=== PATIENT | male | born 1980 | race Caucasian/White ===

== ENCOUNTER → 2022-10-18 | Outpatient (CLI) | payer OTHER, SELFPAY ==
[2022-10-18 09:37] LABS: Anion Gap 4 (5-15); BUN 21 mg/dL (7-18); BUN/Creat Ratio 18.1 RATIO (10-20); Calcium,Total 8.6 mg/dL (8.5-10.1); Chloride 105 mmol/L (98-107); Cholesterol 149 mg/dL (200); Creatinine, Serum 1.16 mg/dL (0.70-1.30); EST Glomerular Filtration Rate 74 mL/min (>60); Est Glom Filt Rate - Afr Amer 90 mL/min (>60); Glucose 205 mg/dL (74-106); High Density Lipoprotein 26 mg/dL; Sodium Level 135 mmol/L (136-145); Triglycerides 274 mg/dL; Very Low Density Lipoprotein 55 mg/dL (5-40)
== END | disposition home or self-care (01) ==
PROVIDERS: PCP Family Medicine; Referring Provider Family Medicine; Visit Provider Family Medicine
DX: Z00.00 Encounter for general adult medical examination without abnormal findings (principal); I10 Essential (primary) hypertension
CPT/HCPCS: 36415; 80048; 80061; 84443

== ENCOUNTER → 2023-05-04 | Outpatient (CLI) | payer OTHER, SELFPAY ==
--- NOTE | 2023-05-04 15:37 | STRESSREP ---
Stress Test Report Pharmacologic myocardial perfusion stress test. 42-year-old man with a history of shortness of breath and hypertension Resting EKG demonstrates sinus rhythm with a rate of 75 bpm. Resting blood pressure is 162/120 mmHg. 0.4 mg of regadenoson was infused per usual protocol followed by rapid intravenous saline flush injection. Continuous EKG monitoring was performed. The maximum heart rate was 117 bpm which was 65% of max impacted heart rate the maximum workload was 1 metabolic equivalent. At rest there were no ST or T wave changes noted to suggest ischemia and at peak infusion nonspecific ST changes were noted which did not meet the criteria for ischemia. No clinical angina is noted. The final blood pressure was 154/110 mmHg. patient was noted to be hypertensive at rest but became vagal after IV was set up. Myocardial perfusion protocol. 14.6 mCi of technetium 99m sestamibi was injected at rest. 0.4 mg of regadenoson was infused per usual protocol. At peak infusion 44.6 mCi of technetium 99m sestamibi was injected stress images were obtained stress and rest images were reconstructed and compared in the short axis vertical long and horizontal long axis. Gated images were also obtained. Perfusion SPECT analysis: Review of the stress images demonstrate normal uptake of tracer noted in all areas of the myocardium except for the anterior wall with reduced perfusion. The resting images similar demonstrated normal uptake of tracer noted in all areas of the myocardium. Mild mid anterior ischemia is noted Gated SPECT analysis: The gated ejection fraction is 49%. Conclusion: Abnormal pharmacologic myocardial perfusion stress test. Low normal ejection fraction. Anterior myocardial ischemia present.
== END | disposition home or self-care (01) ==
LOC: CVS 06:33
PROVIDERS: PCP Family Medicine; Referring Provider Family Medicine; Visit Provider Family Medicine
DX: R06.02 Shortness of breath (principal)
CPT/HCPCS: 78452; 93017; A9500; A4216; J2785

== ENCOUNTER → 2023-05-13 | Outpatient (CLI) | payer OTHER, SELFPAY ==
--- NOTE | 2023-05-13 16:55 | RAD_ITS ---
STUDY: X-RAY CHEST REASON FOR EXAM: Male, 42 years old. Shortness of breath. Abnormal stress test. TECHNIQUE: COMPARISON: None. FINDINGS: The lungs are clear and expanded. There is no demonstrated pleural abnormality. There is borderline cardiomegaly. Normal mediastinum and caridad. Normal visualized pulmonary arteries. Normal visualized aortic arch and descending thoracic aorta. Normal visualized thoracic spine. Normal visualized ribs, clavicles, and shoulders. There is no demonstrated abnormality of the visualized soft tissue structures of the upper abdomen. RAD/Chest PA and Lateral IMPRESSION: Borderline cardiomegaly. Electronically Signed: Yanick Reveles MD at 10:27 EDT ,
[2023-05-13 17:14] LABS: Absolute Neutrophil Count 3.3 X10^3/uL (2.0-7.7); Basophil# 0.05 X10^3/uL; Basophil% 0.7 % (0-1); Eosinophil# 0.41 X10^3/uL; Eosinophils% 5.9 % (0-5); Hematocrit 42.7 % (40-54); Hemoglobin 14.5 g/dL (13.0-16.5); Mean Corpuscular Hgb 29.7 pg (27.0-32.0); Mean Corpuscular Volume 87.5 fL (80-94); Mean Platelet Vol. 9.3 fl (6.2-12.0); Monocyte# 0.69 X10^3/uL; Monocyte% 9.9 % (0-10); NRBC Flagged by Analyzer 0 % (0-5); Neutrophil # 3.26 X10^3/uL (2.7-7.7); Neutrophil % 46.9 % (47-70); Platelet Count 212 K/mm3 (150-450); RBC Distribution Width CV 12.9 % (11.6-14.6); RBC Distribution Width SD 41.1 fl (35.1-43.9); Red Blood Count 4.88 M/mm3 (4.6-6.2)
[2023-05-13 19:00] LABS: Anion Gap 6 (5-15); BUN 23 mg/dL (7-18); BUN/Creat Ratio 14.9 RATIO (10-20); Calcium,Total 9.3 mg/dL (8.5-10.1); Chloride 105 mmol/L (98-107); Creatinine, Serum 1.54 mg/dL (0.70-1.30); EST Glomerular Filtration Rate 53 mL/min (>60); Est Glom Filt Rate - Afr Amer 65 mL/min (>60); Glucose 93 mg/dL (74-106); Potassium 4.2 mmol/L (3.5-5.1); Sodium Level 138 mmol/L (136-145)
== END | disposition home or self-care (01) ==
LOC: RAD 16:41
PROVIDERS: PCP Family Medicine; Referring Provider Internal Medicine Cardiovascular Disease; Visit Provider Internal Medicine Cardiovascular Disease
DX: R06.02 Shortness of breath (principal); R94.39 Abnormal result of other cardiovascular function study; I10 Essential (primary) hypertension
CPT/HCPCS: 36415; 71046; 80048; 85025

== ENCOUNTER → 2023-05-21 | Outpatient (CLI) | payer OTHER, SELFPAY ==
[2023-05-21 16:33] LABS: Uric Acid 9.6 mg/dL (3.5-7.2)
== END | disposition home or self-care (01) ==
LOC: MFPLAB 11:48
PROVIDERS: PCP Family Medicine; Visit Provider Family Medicine
DX: M10.9 Gout, unspecified (principal)
CPT/HCPCS: 36415; 84550

== ENCOUNTER 2023-05-25 06:57 | Day surgery (SDC) | payer OTHER, SELFPAY ==
[2023-05-22 08:55] VITALS: BMI 34.0
--- NOTE | 2023-06-01 08:56 | CL.D_ITS ---
Patient Name: JUSTINE RUANO Study Date: 05/25/2023 Performing: Basil Clark MD Ht: 72 inches 182.88 cm : 1980 Wt: 251.3 lbs 113.85 kg Age: 42 Gender: male BSA: 2.35 PROCEDURE(S) PERFORMED DC01-(17214)LHC/COR/LV CLINICAL PROFILE AND INDICATIONS Indications: Suspected CAD Heart Failure: None Stress/Imaging Date: 05/04/23Stress Test with SPECT MPI: Positive Intermediate Risk CAD Presentations: Symptom unlikely to be ischemic. CONCLUSIONS Uncontrolled hypertension. RECOMMENDATIONS Aggressive risk factor modification and guideline directed therapy care DESCRIPTION OF PROCEDURE The patient arrived to the procedure lab. The risks and benefits of the procedure as well as a full description of our services here and current unavailability of surgical backup were fully explained to the patient and/or their significant other prior to the catheterization. The Timeout was completed, verifying the correct patient and procedure. The patient's procedural site was prepped and draped in the usual fashion. Local anesthetic was given subcutaneously to right radial region with Lidocaine 2%. Using a modified Seldinger technique, arterial access was obtained via the right radial artery, a 6Fr sheath was inserted. Right Coronary Artery selective angiography was then performed in multiple views using a 5 Fr. 4.0 Horton catheter. Left Coronary Artery selective angiography was performed in multiple views using a 5 Fr. JL5 catheter. Left Ventriculography was performed in TADEO projection using a 5 Fr. Pigtail catheter. LV to AO pullback pressures were then recorded.The arterial sheath was pulled and a TR Band was applied for hemostasis. 10cc air CORONARY ANGIOGRAPHY DOMINANCE: Right Dominant LEFT HEART ASSESSMENT Left Ventricular Ejection Fraction: by LV Gram 60 % Normal LV wall motion Normal Left Ventricular systolic function LEFT MAIN: Angiographically normal LEFT ANTERIOR DESCENDING ARTERY: No significant disease noted CIRCUMFLEX ARTERY: No significant disease noted RAMUS: Medium size vessel with distal side branch with 70 to 80% stenosis noted. RIGHT CORONARY ARTERY: PROX RCA: 50 % Stenosis COMPLICATIONS No Complications PROCEDURE MEDICATIONS Fentanyl 50 mcg IV Versed 1 mg IV Versed 1 mg IV Oxygen: 2 L/min via nasal cannula Heparin given IA 05/25/2023 08:54:59 Verapamil 2.5mg, Ntg 100mcgs, 3000 units of Heparin given IA 05/25/2023 08:54:59 SUMMARY OF HEMODYNAMIC DATA Time AIR REST ECG 07:32:01 ECG 07:33:10 Art 106/72 (82) 08:56:58 AO 143/102 (122) SA 09:08:43 LV 141/13, 33 09:25:56 LV 149/17, 27 09:26:05 LV 144/18, 27 09:26:52 LVp 149/14, 30 09:26:58 AOp 161/106 (130) 09:27:05 ECG 09:42:40 AIR REST 10:53:45 Signed By Basil Clark MD On 06/01/2023 08:55:54 Basil Clark MD
== END 2023-05-25 11:00 | disposition home or self-care (01) ==
PROVIDERS: PCP Family Medicine; Visit Provider Internal Medicine Cardiovascular Disease
DX: I10 Essential (primary) hypertension (principal); E11.9 Type 2 diabetes mellitus without complications; R94.39 Abnormal result of other cardiovascular function study; Z79.84 Long term (current) use of oral hypoglycemic drugs; Z79.899 Other long term (current) drug therapy; Z79.82 Long term (current) use of aspirin
CPT/HCPCS: 93458; 99152; 99153; J7040; Q9967; C1769; C1894

== ENCOUNTER 2023-05-25 15:39 | Emergency (ER) | payer OTHER, SELFPAY ==
[2023-05-25 15:40] VITALS: BP 157/110; PULSE 92; RESP 18; TEMP 36.2; O2SAT 93; BMI 34.0
--- NOTE | 2023-05-25 16:26 | ADUUE_ITS ---
Reason For Study: Swelling Rt Hand RIGHT Rt Radial A: 0.34cm x 0.37cm, 104cm/s Rt Ulnar A: 0.25cm x 0.23cm, 81cm/s Rt RadialV, UlnarV, and Cephalic V are Compressible No pseudo or fistula noted. VL/US Art Duplex Unilat UP Extrem Interpretation Summary Right radial and ulnar arteries patent with normal waveforms and velocities. Right radial, ulnar, and cephalic veins patent and compressible with no evidenc e of thrombosis. No pseudoaneurysm or fistula identified. Ordering Physician: Alexandro Edwards Referring Physician: Zachary Leal Performed By: Lisa Aguillon, YULISSA, RVT
--- NOTE | 2023-05-25 16:28 | EDS_ITS ---
HPI History of Present Illness Chief Complaint: Wound Check Narrative Narrative: 42-year-old male past medical history of hypertension had an abnormal stress test in the past and had radial artery heart catheterization by Dr. Wagner for review this morning around 9 AM. This was approximately 7 hours ago. He noticed an hour ago that his right hand started swelling. It is diffusely tender. He states he was told that he needed to come to the emergency department because they are afraid it might burst. He does not take blood thinners. No exacerbating or alleviating factors. His fingers feel tight. [facility] Medical History Abnormal stress test Essential (primary) hypertension SOB (shortness of breath) Home Medications guaifenesin 600 mg tablet, extended release 12 hr (Mucinex) 600 mg PO Q12H PRN congestion 05/06/23 [History Last Taken Unknown] lisinopril 20 mg-hydrochlorothiazide 25 mg tablet 1 tab PO DAILY 05/06/23 [History Last Taken Unknown] metformin 1,000 mg tablet 1,000 mg PO DAILY 05/06/23 [History Last Taken Unknown] multivitamin 1 tab PO DAILY 05/06/23 [History Last Taken Unknown] amlodipine 10 mg tablet 10 mg PO DAILY #60 tabs 05/13/23 [Rx Last Taken 05/25/23] aspirin 81 mg tablet,delayed release (Adult Low Dose Aspirin) 81 mg PO QDAY #60 tabs 05/13/23 [Rx Last Taken 05/25/23] atorvastatin 40 mg tablet (Lipitor) 40 mg PO DAILY #90 tabs 05/25/23 [Rx Last Taken Unknown] metoprolol succinate 50 mg tablet,extended release 24 hr (Toprol XL) 50 mg PO DAILY #60 tabs 05/25/23 [Rx Last Taken Unknown] Allergy/AdvReac Type Severity Reaction Status Date / Time No Known Allergies Allergy Verified 05/25/23 15:40 Social History Smoking Status: Never smoker alcohol intake: never ROS ROS ED ROS Narrative Constitutional: No fever, no chills. HEENT: No sore throat. No neck pain. No loss of vision. No rhinorrhea. Cardiovascular: No chest pain. No palpitations. No pedal edema. Respiratory: No cough, no shortness of breath. Abdominal: No abdominal pain. No nausea. No vomiting. Genitourinary: No dysuria. No hematuria. Musculoskeletal: No myalgias. Right hand pain and swelling. Neurologic: No headaches. No dizziness. No lightheadedness. Skin: No rash. No change in color. Psychiatric: No depression. No anxiety. EXAM Physical Exam Narrative Exam Narrative: Afebrile. Vital signs noted. HEENT: Normocephalic. Atraumatic. PERRL, EOMI. Neck soft and supple. No point tenderness or step off. Cardiovascular: Regular rate and rhythm. No murmurs, rubs, or gallops appreciated. Respiratory: No tachypnea. Lungs clear to auscultation bilaterally. Gastrointestinal: Abdomen soft, nontender, with normoactive bowel sounds. No rebound or guarding. Neurological: Awake. Alert. Nonfocal, nonlateralizing. Skin: No rash. Normal color. No pallor. Musculoskeletal: No pedal edema. Full range of motion extremities. Mild diffuse swelling of right hand, good capillary refill. Able to oppose thumb. Palpable ulnar pulse. More proximal radial pulse palpable Const Vital Signs: 05/25/23 15:40 Temperature 97.1 F L Temperature Source Temporal Pulse Rate 92 Respiratory Rate 18 Blood Pressure 157/110 H Blood Pressure Mean 125 Pulse Ox 93 Oxygen Delivery Method Room Air MDM MDM MDM Narrative Medical decision making narrative: I do not feel laboratory work is indicated. Concern is for tear of the radial artery with developing hematoma. I discussed patient with Dr. Basil Clark who would like an ultrasound performed of the radial artery. According to the safety relief valve technician, the radial artery appears patent without aneurysm both proximally and distally. To the puncture site with good flow. I discussed the patient with Dr. Basil Clark who has also seen the patient in the emergency department. He will elevate his hand, and be discharged to follow-up in 2 days. Disposition is discharged in stable condition. Discharge Plan Triage Chief Complaint: Wound Check ED Provider: Alexandro Edwards Dx/Rx/DC Orders Clinical Impression: Swelling of right hand Instructions: ED Lymphedema Prescriptions: No Action metformin 1,000 mg tablet 1,000 mg PO DAILY lisinopril-hydrochlorothiazide 20-25 mg tablet 1 tab PO DAILY guaifenesin [Mucinex] 600 mg tablet extended release 12hr 600 mg PO Q12H PRN (Reason: congestion) multivitamin Tablet 1 tab PO DAILY aspirin [Adult Low Dose Aspirin] 81 mg tablet,delayed release (DR/EC) 81 mg PO QDAY Qty: 60 3RF amlodipine 10 mg tablet 10 mg PO DAILY Qty: 60 3RF atorvastatin [Lipitor] 40 mg tablet 40 mg PO DAILY Qty: 90 3RF metoprolol succinate [Toprol XL] 50 mg tablet extended release 24 hr 50 mg PO DAILY Qty: 60 3RF Primary Care Provider: Zachary Leal Referrals: Basil Clark MD [Med Staff - Active Staff] - 2 Days Zachary Leal MD [Primary Care Provider] - As Needed Activity Restrictions/Additional Instructions: Elevate your right hand when possible. Follow-up with Dr. Clark in 2 days. Disposition Disposition: Home, Self Care
[2023-05-25 17:16] VITALS: BP 158/112; PULSE 81; RESP 16; TEMP 36.6; O2SAT 99
== END 2023-05-25 17:18 | disposition home or self-care (01) ==
LOC: ED 17:01
PROVIDERS: Emergency Provider Emergency Medicine; PCP Family Medicine; Visit Provider Emergency Medicine
DX: M79.89 Other specified soft tissue disorders (principal)
CPT/HCPCS: 93931; 99282

== ENCOUNTER → 2023-05-29 | Outpatient (CLI) | payer OTHER, SELFPAY ==
[2023-05-29 18:36] LABS: AST(SGOT) 17 U/L (15-37); Alanine Aminotransfer ALT/SGPT 89 U/L (16-61); Albumin, Serum 3.9 g/dL (3.2-5.0); Alkaline Phosphatase 81 U/L (45-117); Anion Gap 11 (5-15); BUN 52 mg/dL (7-18); BUN/Creat Ratio 23.1 RATIO (10-20); Calcium,Total 8.9 mg/dL (8.5-10.1); Chloride 104 mmol/L (98-107); Cholesterol 123 mg/dL (200); Creatinine, Serum 2.25 mg/dL (0.70-1.30); EST Glomerular Filtration Rate 34 mL/min (>60); Est Glom Filt Rate - Afr Amer 42 mL/min (>60); Globulin 3.9 g/dL (2.2-4.2); Glucose 392 mg/dL (74-106); High Density Lipoprotein 34 mg/dL; Potassium 4.9 mmol/L (3.5-5.1); Protein, Total 7.8 g/dL (6.4-8.2); Sodium Level 135 mmol/L (136-145); Triglycerides 138 mg/dL; Very Low Density Lipoprotein 28 mg/dL (5-40)
== END | disposition home or self-care (01) ==
LOC: MFPLAB 16:49
PROVIDERS: PCP Family Medicine; Visit Provider Family Medicine
DX: E11.9 Type 2 diabetes mellitus without complications (principal)
CPT/HCPCS: 36415; 80053; 80061

== ENCOUNTER → 2023-06-12 | Outpatient (CLI) | payer OTHER, SELFPAY ==
--- NOTE | 2023-06-12 15:09 | ECHOCS_ITS ---
Reason For Study: SOB Procedure This was a 2D Doppler, Color Flow transthoracic echocardiogram. Contrast injection was performed. Exam performed in department. Left Ventricle Normal LV size. Mild concentric left ventricular hypertrophy. Left ventricular systolic function is normal. The estimated ejection fraction is 60 %. No regional wall motion abnormalities noted. Right Ventricle Normal RV size. Normal systolic function. Atria Normal left atrium. Normal right atrium. Tricuspid Valve Normal tricuspid valve. Mild (1+) tricuspid valve insufficiency. Pulmonary artery systolic pressure is 35 mmHg. Aortic Valve Trisinus/trileaflet aortic valve. Pulmonic Valve Normal pulmonic valve. Great Vessels Normal aortic root. The pulmonary artery is normal size. Normal inferior vena cava. Pericardium/Pleural No pericardial effusion. Medication 22 gauge I.V. with prn adaptor inserted into right arm. Diluted definity 1ml given slow IV push to enhance endocardial definition. MMode/2D Measurements & Calculations LVIDd: 5.4 cm IVSd: 1.3 cm Ao root diam: 3.6 cm LVIDs: 3.8 cm LVPWd: 1.2 cm LA dimension: 4.9 cm FS: 28.3 % LAV(MOD-bp): 52.9 ml LVAd ap4: 45.5 cm2 SV(MOD-sp4): 100.6 ml LAV(MOD-bp) Indexed: 22.5 ml/m2 LVLd ap4: 10.2 cm LAV(MOD-sp2): 55.5 ml EDV(MOD-sp4): 162.0 ml LAV(MOD-sp4): 49.9 ml EDV(sp4-el): 172.0 ml LVAs ap4: 24.4 cm2 LVLs ap4: 8.5 cm ESV(MOD-sp4): 61.4 ml ESV(sp4-el): 59.5 ml EF(MOD-sp4): 62.1 % EF(sp4-el): 65.4 % SV(sp4-el): 112.5 ml LA A4 area: 19.0 cm2 RA A4 area: 21.6 cm2 TAPSE: 2.5 cm Time Measurements MV dec time: 0.20 sec Doppler Measurements & Calculations MV E max demetrio: 69.6 cm/sec Lat Peak E' Demetrio: 11.1 cm/sec Med Peak E' Demetrio: 9.5 cm/sec MV A max demetrio: 64.5 cm/sec E/E' lat: 6.2 E/E' med: 7.3 MV E/A: 1.1 MV V2 max: 100.2 cm/sec MV P1/2t max demetrio: 100.2 cm/sec Ao V2 max: 138.1 cm/sec MV max P.0 mmHg MV P1/2t: 72.4 msec Ao max P.6 mmHg MV V2 mean: 58.7 cm/sec MV dec slope: 405.4 cm/sec2 MV mean P.6 mmHg MV V2 VTI: 22.0 cm MVA(P1/2t): 3.0 cm2 LV V1 max: 132.8 cm/sec MR max demetrio: 573.9 cm/sec PA V2 max: 182.9 cm/sec LV V1 max P.0 mmHg MR max P.7 mmHg PA V2 mean: 126.0 cm/sec TR max demetrio: 278.1 cm/sec TR max P.9 mmHg ECHO/Echo Complete W/ Contrast Interpretation Summary Normal LV size. Left ventricular systolic function is normal. The estimated ejection fraction is 60 %. Mild concentric left ventricular hypertrophy. Mild (1+) tricuspid valve insufficiency. Pulmonary artery systolic pressure is 35 mmHg. Contrast injection was performed. Ordering Physician: Basil Clark Referring Physician: Basil Clark Performed By: Kanu Walker RCS
== END | disposition home or self-care (01) ==
LOC: CVS 15:07
PROVIDERS: PCP Family Medicine; Referring Provider Internal Medicine Cardiovascular Disease; Visit Provider Internal Medicine Cardiovascular Disease
DX: R06.02 Shortness of breath (principal)
CPT/HCPCS: 93306; Q9957; A4216; C8929

== ENCOUNTER → 2023-07-10 | Outpatient (CLI) | payer OTHER, SELFPAY ==
[2023-07-10 17:53] LABS: Absolute Lymphocyte Count 2.16 X10^3/uL (0.83-4.51); Absolute Neutrophil Count 3.7 X10^3/uL (2.0-7.7); Basophil# 0.04 X10^3/uL; Basophil% 0.6 % (0-1); Eosinophil# 0.14 X10^3/uL; Eosinophils% 2.1 % (0-5); Hematocrit 38.7 % (40-54); Hemoglobin 13.5 g/dL (13.0-16.5); Lymphocyte # 2.16 X10^3/ul (0.83-4.51); Lymphocyte % 31.8 % (19-41); Mean Corp Hgb Conc 34.9 g/dL (32-36); Mean Corpuscular Hgb 29.9 pg (27.0-32.0); Mean Corpuscular Volume 85.6 fL (80-94); Mean Platelet Vol. 10.8 fl (6.2-12.0); Monocyte# 0.67 X10^3/uL; Monocyte% 9.9 % (0-10); NRBC Flagged by Analyzer 0 % (0-5); Neutrophil # 3.68 X10^3/uL (2.7-7.7); Neutrophil % 54.1 % (47-70); Platelet Count 216 K/mm3 (150-450); RBC Distribution Width CV 12.2 % (11.6-14.6); RBC Distribution Width SD 37.7 fl (35.1-43.9); Red Blood Count 4.52 M/mm3 (4.6-6.2); White Blood Count 6.8 K/mm3 (4.4-11.0)
[2023-07-10 18:18] LABS: Anion Gap 9 (5-15); BUN 27 mg/dL (7-18); BUN/Creat Ratio 10.7 RATIO (10-20); Chloride 97 mmol/L (98-107); Creatinine, Serum 2.52 mg/dL (0.70-1.30); EST Glomerular Filtration Rate 30 mL/min (>60); Est Glom Filt Rate - Afr Amer 37 mL/min (>60); Glucose 423 mg/dL (74-106); Potassium 4.1 mmol/L (3.5-5.1); Sodium Level 131 mmol/L (136-145)
== END | disposition home or self-care (01) ==
LOC: MTLAB 16:55
PROVIDERS: PCP Family Medicine; Referring Provider Family Medicine; Visit Provider Family Medicine
DX: R53.83 Other fatigue (principal); N19 Unspecified kidney failure
CPT/HCPCS: 36415; 80048; 85025

== ENCOUNTER 2023-07-16 12:45 | Inpatient (IN) | payer OTHER, SELFPAY ==
[2023-07-16] VITALS (8 sets, daily range): BP systolic 126–163; BP diastolic 79–105; PULSE 59–91; RESP 12–23; TEMP 36.2–36.9; O2SAT 93–98; BMI 31.7; BMI 31.5
--- NOTE | 2023-07-16 13:28 | EDS_ITS ---
HPI <KEHINDE Holt - Last Filed: 07/16/23 18:15> History of Present Illness Chief Complaint: Syncope Narrative Narrative: Patient is a 42-year-old male with history of diabetes, hypertension, renal insufficiency presents to the emergency department with 3 weeks of blurred vision, near syncopal episodes when he does anything physical. Patient states that whenever he works, he does something that is normally easy, he feels his heart race, he then feels like he is going to pass out. Patient states he has never had a complete syncopal episode however he constantly has to grab things because he feels unsteady. He has been seeing his PCP for this, they recently did some blood work on 10 May 2023, patient did have elevated creatinine at 2.5, patient's blood sugar was greater than 400, patient is here because he is constantly having near syncopal episodes, cramping, significant tiredness. Patient denies any significant pain. Denies any nausea or vomiting. PFSH <KEHINDE Holt - Last Filed: 07/16/23 18:15> [facility] Medical History Abnormal stress test Essential (primary) hypertension SOB (shortness of breath) Home Medications ?Medication ?Instructions ?Recorded ?Last Taken ?Type guaifenesin 600 mg tablet, 600 mg PO Q12H PRN congestion 05/06/23 Unknown History extended release 12 hr (Mucinex) lisinopril 20 1 tab PO DAILY HTN 05/06/23 07/15/23 22:00 History mg-hydrochlorothiazide 25 mg tablet metformin 1,000 mg tablet 1,000 mg PO DAILY diabetes 05/06/23 Unknown History multivitamin 1 tab PO DAILY supplement 05/06/23 07/16/23 08:00 History amlodipine 10 mg tablet 10 mg PO DAILY #60 tabs 05/13/23 07/15/23 22:00 Rx aspirin 81 mg tablet,delayed 81 mg PO QDAY #60 tabs 05/13/23 07/15/23 22:00 Rx release (Adult Low Dose Aspirin) atorvastatin 40 mg tablet (Lipitor) 40 mg PO DAILY #90 tabs 05/25/23 07/15/23 22:00 Rx metoprolol succinate 50 mg 50 mg PO DAILY #60 tabs 05/25/23 07/16/23 08:00 Rx tablet,extended release 24 hr (Toprol XL) allopurinol 100 mg tablet 100 mg PO DAILY gout 07/16/23 07/16/23 08:00 History Allergy/AdvReac Type Severity Reaction Status Date / Time No Known Allergies Allergy Verified 05/25/23 15:40 Social History (Updated 07/16/23 @ 17:27 by Geraldine Mattson) household members: significant other housing: house Smoking Status: Never smoker alcohol intake: never ROS <KEHINDE Holt - Last Filed: 07/16/23 18:15> ROS ED ROS Narrative Constitutional: Negative for fever, chills, weight loss. Positive for weakness Eyes: Negative for vision loss, vision change, double vision ENT: Negative for any sore throat, ear pain, congestion Cardiovascular: Negative for any chest pain, tightness, palpitations Respiratory: Negative for any cough, sputum production, hemoptysis, dyspnea, dyspnea on exertion, orthopnea Gastrointestinal: Negative for any abdominal pain, nausea, vomiting, diarrhea, constipation, blood in stool, blood in vomit : Negative for any urinary frequency, dysuria, retention, blood in urine Muscle skeletal: Negative for any neck pain, back pain Neurological: Negative for any headache. Positive for near syncope, dizziness Skin: Negative for any rashes, itching, abrasions, lacerations Psychiatric: Negative for any depression, anxiety, stress, suicidal ideation, homicidal ideation Hematologic: Negative for any excessive bruising, easy bleeding EXAM <KEHINDE Holt - Last Filed: 07/16/23 18:15> Physical Exam Narrative Exam Narrative: Vital signs reviewed. Patient is alert and orient x 4. Vital signs are stable. HEET: Head normocephalic atraumatic, TMs clear bilaterally. Posterior pharynx is clear, moist mucous membranes. Nares clear bilaterally. Neck: Supple with no lymphadenopathy or tenderness. No signs of meningismus. Cardiac: Regular rate and rhythm no murmurs gallops or rubs, equal peripheral pulses bilaterally. Respiratory: Lungs clear to auscultation bilaterally. No chest tenderness. Abdomen: Soft, nontender, nondistended. No abdominal bruit or pulsatile masses. No hepatosplenomegaly Extremities: No peripheral edema, no signs of gross trauma or deformity. Active full range of motion of all extremities. Neuro: Cranial nerves II through XII intact, no focal neurological deficits. Skin: Clean dry and intact with no rash, purpura, petechiae, vesicles or pustules. Backs/flank: No CVA tenderness, no midline spinal tenderness, no deformity. Psych: Normal mood and affect. No SI, HI or acute psychosis. Const Vital Signs: 07/16/23 12:46 07/16/23 12:46 07/16/23 13:37 Temperature 98.1 F Temperature Source Temporal Pulse Rate 91 78 Pulse Rate [Lying] Pulse Rate [Sitting (for 1 minute prior to obtaining)] Pulse Rate [Standing (for 1 minute prior to obtaining)] Respiratory Rate 14 14 Respiratory Effort Normal Respiratory Pattern Normal Blood Pressure 150/98 H 131/104 H Blood Pressure [Lying] Blood Pressure [Sitting (for 1 minute prior to obtaining)] Blood Pressure [Standing (for 1 minute prior to obtaining)] Blood Pressure Mean 115 113 Blood Pressure Mean [Lying] Blood Pressure Mean [Sitting (for 1 minute prior to obtaining)] Blood Pressure Mean [Standing (for 1 minute prior to obtaining)] Pulse Ox 97 96 Oxygen Delivery Method Room Air Room Air 07/16/23 13:39 07/16/23 14:10 07/16/23 14:46 Temperature Temperature Source Pulse Rate 65 Pulse Rate [Lying] 74 Pulse Rate [Sitting (for 1 minute prior to obtaining)] 82 Pulse Rate [Standing (for 1 minute prior to obtaining)] 87 Respiratory Rate 12 Respiratory Effort Respiratory Pattern Blood Pressure 129/81 H Blood Pressure [Lying] 128/79 H Blood Pressure [Sitting (for 1 minute prior to obtaining)] 145/103 H Blood Pressure [Standing (for 1 minute prior to obtaining)] 163/103 H Blood Pressure Mean 97 Blood Pressure Mean [Lying] 95 Blood Pressure Mean [Sitting (for 1 minute prior to obtaining)] 117 Blood Pressure Mean [Standing (for 1 minute prior to obtaining)] 123 Pulse Ox 98 93 Oxygen Delivery Method Room Air Room Air 07/16/23 16:00 Temperature Temperature Source Pulse Rate 69 Pulse Rate [Lying] Pulse Rate [Sitting (for 1 minute prior to obtaining)] Pulse Rate [Standing (for 1 minute prior to obtaining)] Respiratory Rate 23 H Respiratory Effort Respiratory Pattern Blood Pressure 152/89 H Blood Pressure [Lying] Blood Pressure [Sitting (for 1 minute prior to obtaining)] Blood Pressure [Standing (for 1 minute prior to obtaining)] Blood Pressure Mean 110 Blood Pressure Mean [Lying] Blood Pressure Mean [Sitting (for 1 minute prior to obtaining)] Blood Pressure Mean [Standing (for 1 minute prior to obtaining)] Pulse Ox 95 Oxygen Delivery Method Room Air <Dr. Tylor Eaton, DO - Last Filed: 07/16/23 18:16> Physical Exam Const Vital Signs: 07/16/23 12:46 07/16/23 12:46 07/16/23 13:37 Temperature 98.1 F Temperature Source Temporal Pulse Rate 91 78 Pulse Rate [Lying] Pulse Rate [Sitting (for 1 minute prior to obtaining)] Pulse Rate [Standing (for 1 minute prior to obtaining)] Respiratory Rate 14 14 Respiratory Effort Normal Respiratory Pattern Normal Blood Pressure 150/98 H 131/104 H Blood Pressure [Lying] Blood Pressure [Sitting (for 1 minute prior to obtaining)] Blood Pressure [Standing (for 1 minute prior to obtaining)] Blood Pressure Mean 115 113 Blood Pressure Mean [Lying] Blood Pressure Mean [Sitting (for 1 minute prior to obtaining)] Blood Pressure Mean [Standing (for 1 minute prior to obtaining)] Pulse Ox 97 96 Oxygen Delivery Method Room Air Room Air 07/16/23 13:39 07/16/23 14:10 07/16/23 14:46 Temperature Temperature Source Pulse Rate 65 Pulse Rate [Lying] 74 Pulse Rate [Sitting (for 1 minute prior to obtaining)] 82 Pulse Rate [Standing (for 1 minute prior to obtaining)] 87 Respiratory Rate 12 Respiratory Effort Respiratory Pattern Blood Pressure 129/81 H Blood Pressure [Lying] 128/79 H Blood Pressure [Sitting (for 1 minute prior to obtaining)] 145/103 H Blood Pressure [Standing (for 1 minute prior to obtaining)] 163/103 H Blood Pressure Mean 97 Blood Pressure Mean [Lying] 95 Blood Pressure Mean [Sitting (for 1 minute prior to obtaining)] 117 Blood Pressure Mean [Standing (for 1 minute prior to obtaining)] 123 Pulse Ox 98 93 Oxygen Delivery Method Room Air Room Air 07/16/23 16:00 Temperature Temperature Source Pulse Rate 69 Pulse Rate [Lying] Pulse Rate [Sitting (for 1 minute prior to obtaining)] Pulse Rate [Standing (for 1 minute prior to obtaining)] Respiratory Rate 23 H Respiratory Effort Respiratory Pattern Blood Pressure 152/89 H Blood Pressure [Lying] Blood Pressure [Sitting (for 1 minute prior to obtaining)] Blood Pressure [Standing (for 1 minute prior to obtaining)] Blood Pressure Mean 110 Blood Pressure Mean [Lying] Blood Pressure Mean [Sitting (for 1 minute prior to obtaining)] Blood Pressure Mean [Standing (for 1 minute prior to obtaining)] Pulse Ox 95 Oxygen Delivery Method Room Air [facility] <KEHINDE Holt - Last Filed: 07/16/23 18:15> [facility] Lab Data Labs: Laboratory Results - last 24 hr 07/16/23 07/16/23 07/16/23 13:10 14:57 15:46 WBC 6.5 RBC 4.48 L Hgb 13.4 Hct 38.1 L MCV 85.0 MCH 29.9 MCHC 35.2 RDW Std Deviation 37.2 RDW Coeff of Pippa 12.2 Plt Count 190 MPV 10.8 Immature Gran % (Auto) 0.500 Neut % (Auto) 61.1 Lymph % (Auto) 25.2 Walker % (Auto) 10.2 H Eos % (Auto) 2.2 Baso % (Auto) 0.8 Absolute Neuts (auto) 4.0 Absolute Lymphs (auto) 1.63 Nucleated RBC % 0 D-Dimer Quant (PE/DVT) < 0.27 L Sodium 125 L Potassium 4.1 Chloride 87 L Carbon Dioxide 27.0 Anion Gap 11 BUN 32 H Creatinine 2.65 H Estim Creat Clear Calc 46.65 Est GFR (MDRD) Af Amer 35 L Est GFR (MDRD) Non-Af 29 L BUN/Creatinine Ratio 12.1 Glucose 773 H* Hemoglobin A1c 12.6 H Calcium 9.9 Magnesium 2.1 Total Bilirubin 0.50 Direct Bilirubin 0.14 AST 20 ALT 56 Alkaline Phosphatase 99 Troponin I High Sens 12 14 Total Protein 7.4 Albumin 3.9 Globulin 3.5 Lipase 112 H TSH 0.96 Acetone Level NEGATIVE Radiography Diagnostic Testing: Clinical Impression(s) from Imaging Studies Chest X-Ray 07/16/23 13:32 IMPRESSION: No acute abnormality is seen. Electronically Signed: Yanick Reveles MD at 14:08 EDT , EKG Normal sinus rhythm: Attestation: I personally reviewed and interpreted this EKG as follows: Interpretation: Sinus Rhythm Comments: Normal sinus rhythm, rate of 71 bpm, MD interval 142 ms, QRS duration [address] elevation, no acute infarct. Treatment and Re-Evaluation :: Differential diagnosis includes however is not limited to: ACS, OR, hyperglycemia, hypothyroidism, acute kidney injury, electrolyte abnormality Patient appears to be in no obvious respiratory distress, patient slight hypertensive however the remainder of the vital signs are stable. Presenting to the emergency department for ongoing weakness, near syncopal episodes for the last 3 weeks. Patient will receive a full cardiac workup, including a dimer, electrolyte's, CBC. Patient will receive a chest x-ray. All radiologic examinations were read, reviewed by the emergency department attending. From these reads, a plan of care will be put in place. Patient will tested for orthostatic hypotension, he is given 1 L normal saline. Patient CBC was unremarkable, D-dimer was negative. Patient's chemistries showed a sodium of 125 currently this is secondary to the patient's blood sugar that was 773 which is critical high. Patient's creatinine is 2.65. Over the last several weeks, the patient's blood work has been getting steadily worse. He is having worsening kidney function, worsening elevated high blood pressure, as well as lower sodium. Patient lipase is elevated at 112, TSH was unre markable. Patient's acetone level was negative. Patient was given 2 L of normal saline. Secondary to the patient's ongoing weakness, near syncope, I do believe the patient needs to be admitted to the hospital for medical management. Patient was reluctant at first however I do believe the patient understands why he needs to be admitted. I will reach out to the hospitalist. <Dr. Tylor Eaton, DO - Last Filed: 07/16/23 18:16> [facility] Lab Data Labs: Laboratory Results - last 24 hr 07/16/23 07/16/23 07/16/23 13:10 14:57 15:46 WBC 6.5 RBC 4.48 L Hgb 13.4 Hct 38.1 L MCV 85.0 MCH 29.9 MCHC 35.2 RDW Std Deviation 37.2 RDW Coeff of Pippa 12.2 Plt Count 190 MPV 10.8 Immature Gran % (Auto) 0.500 Neut % (Auto) 61.1 Lymph % (Auto) 25.2 Walker % (Auto) 10.2 H Eos % (Auto) 2.2 Baso % (Auto) 0.8 Absolute Neuts (auto) 4.0 Absolute Lymphs (auto) 1.63 Nucleated RBC % 0 D-Dimer Quant (PE/DVT) < 0.27 L Sodium 125 L Potassium 4.1 Chloride 87 L Carbon Dioxide 27.0 Anion Gap 11 BUN 32 H Creatinine 2.65 H Estim Creat Clear Calc 46.65 Est GFR (MDRD) Af Amer 35 L Est GFR (MDRD) Non-Af 29 L BUN/Creatinine Ratio 12.1 Glucose 773 H* Hemoglobin A1c 12.6 H Calcium 9.9 Magnesium 2.1 Total Bilirubin 0.50 Direct Bilirubin 0.14 AST 20 ALT 56 Alkaline Phosphatase 99 Troponin I High Sens 12 14 Total Protein 7.4 Albumin 3.9 Globulin 3.5 Lipase 112 H TSH 0.96 Acetone Level NEGATIVE Radiography Diagnostic Testing: Clinical Impression(s) from Imaging Studies Chest X-Ray 07/16/23 13:32 IMPRESSION: No acute abnormality is seen. Electronically Signed: Yanick Reveles MD at 14:08 EDT , Treatment and Re-Evaluation :: Differential diagnosis includes however is not limited to: ACS, OR, hyperglycemia, hypothyroidism, acute kidney injury, electrolyte abnormality Patient appears to be in no obvious respiratory distress, patient slight hypertensive however the remainder of the vital signs are stable. Presenting to the emergency department for ongoing weakness, near syncopal episodes for the last 3 weeks. Patient will receive a full cardiac workup, including a dimer, electrolyte's, CBC. Patient will receive a chest x-ray. All radiologic examinations were read, reviewed by the emergency department attendin hussein. From these reads, a plan of care will be put in place. Patient will tested for orthostatic hypotension, he is given 1 L normal saline. Patient CBC was unremarkable, D-dimer was negative. Patient's chemistries showed a sodium of 125 currently this is secondary to the patient's blood sugar that was 773 which is critical high. Patient's creatinine is 2.65. Over the last several weeks, the patient's blood work has been getting steadily worse. He is having worsening kidney function, worsening elevated high blood pressure, as well as lower sodium. Patient lipase is elevated at 112, TSH was unremarkable. Patient's acetone level was negative. Patient was given 2 L of normal saline. Secondary to the patient's ongoing weakness, near syncope, I do believe the patient needs to be admitted to the hospital for medical management. Patient was reluctant at first however I do believe the patient understands why he needs to be admitted. I will reach out to the hospitalist. This patient was seen with a PA/DATABASE MODELER Individually assessed they patient including history and physical. I have reviewed everything on the chart that is available and agree with the documentation provided by the PA/DATABASE MODELER including discussion about the assessment, treatment plan, discussion, and return precautions. Patient presenting for evaluation of feeling lightheadedness. He is also had hyperglycemia. Differential as above. Patient reports to me that he has been having difficulty taking his home meds and his sugars have been going up as a result. He is currently on hold from his metformin due to not tolerating well and kidney disease. He supposed to see nephrology (Dr. Key) but will be seeing her till July. He also reports that he was on 3 weeks of prednisone in the last month for gout. Blood sugar was elevated today without anion gap at 773. Sodium 125. Lipase minimally elevated at 112. Patient is not having abdominal pain. EKG interpreted by myself as normal sinus rhythm at 71 bpm without ischemic change or dysrhythmia. Chest x-ray also shows nothing acute on my interpretation. Patient fluids. I think he would benefit from inpatient care and possible nephrology consult given his trending worsening kidney disease and elevated glucose. Patient amenable to this. Discharge Plan Disposition Disposition: [facility] Care [facility] Discharge Date/Time: 07/16/23 17:12
[2023-07-16] MEDS: 0.9% Normal Saline (1000mL) 1,000 ML 999 ML IV ×2 (13:30→14:59)
--- NOTE | 2023-07-16 13:32 | RAD_ITS ---
STUDY: X-RAY CHEST REASON FOR EXAM: Male, 42 years old. CHEST PAIN TECHNIQUE: Single AP portable view of the chest. COMPARISON: Comparison is made with prior study May 13, 2023. FINDINGS: EKG electrodes are seen. The lungs are clear and expanded. There is no demonstrated pleural abnormality. There is borderline cardiomegaly. Calcified left hilar lymph nodes. Normal visualized pulmonary arteries. Normal visualized aortic arch and descending thoracic aorta. Normal visualized thoracic spine. Normal visualized ribs, clavicles, and shoulders. There is no demonstrated abnormality of the visualized soft tissue structures of the upper abdomen. RAD/Chest 1 View (Portable) IMPRESSION: No acute abnormality is seen. Electronically Signed: Yanick Reveles MD at 14:08 EDT ,
--- NOTE | 2023-07-16 13:49 | NURSING ---
NO OLD EKGS
[2023-07-16 14:23] LABS: Absolute Lymphocyte Count 1.63 X10^3/uL (0.83-4.51); Basophil# 0.05 X10^3/uL; Basophil% 0.8 % (0-1); Eosinophil# 0.14 X10^3/uL; Eosinophils% 2.2 % (0-5); Hematocrit 38.1 % (40-54); Hemoglobin 13.4 g/dL (13.0-16.5); Lymphocyte # 1.63 X10^3/ul (0.83-4.51); Lymphocyte % 25.2 % (19-41); Mean Corp Hgb Conc 35.2 g/dL (32-36); Mean Corpuscular Hgb 29.9 pg (27.0-32.0); Mean Platelet Vol. 10.8 fl (6.2-12.0); Monocyte# 0.66 X10^3/uL; Monocyte% 10.2 % (0-10); NRBC Flagged by Analyzer 0 % (0-5); Neutrophil # 3.95 X10^3/uL (2.7-7.7); Neutrophil % 61.1 % (47-70); Platelet Count 190 K/mm3 (150-450); RBC Distribution Width CV 12.2 % (11.6-14.6); RBC Distribution Width SD 37.2 fl (35.1-43.9); Red Blood Count 4.48 M/mm3 (4.6-6.2); White Blood Count 6.5 K/mm3 (4.4-11.0)
[2023-07-16 14:49] LABS: AST(SGOT) 20 U/L (15-37); Alanine Aminotransfer ALT/SGPT 56 U/L (16-61); Albumin, Serum 3.9 g/dL (3.2-5.0); Alkaline Phosphatase 99 U/L (45-117); Anion Gap 11 (5-15); BUN 32 mg/dL (7-18); BUN/Creat Ratio 12.1 RATIO (10-20); Bilirubin, Direct 0.14 mg/dL (0.00-0.30); Calcium,Total 9.9 mg/dL (8.5-10.1); Chloride 87 mmol/L (98-107); Creatinine, Serum 2.65 mg/dL (0.70-1.30); EST Glomerular Filtration Rate 29 mL/min (>60); Est Glom Filt Rate - Afr Amer 35 mL/min (>60); Estimated Creatinine Clearance 46.65 ml/min; Globulin 3.5 g/dL (2.2-4.2); Glucose 773 mg/dL (74-106); Lipase 112 U/L (13-75); Magnesium 2.1 mg/dL (1.6-2.6); Potassium 4.1 mmol/L (3.5-5.1); Protein, Total 7.4 g/dL (6.4-8.2); Sodium Level 125 mmol/L (136-145); Thyroid Stim Hormone (TSH) 0.96 uIU/mL (0.358-3.74); Troponin-I HS (w/2H Reflex) 12 pg/mL (3.0-78.0)
[2023-07-16 15:10] LABS: Reflex Troponin-HS? (from REC) Y
[2023-07-16 15:26] LABS: D-Dimer Quantitative (DVT/PE) < 0.27 FEU/ug/m (0.27-0.49)
--- NOTE | 2023-07-16 16:04 | HP.PCM.HOS_ITS ---
HPI - General General Date of Admission: 07/16/23 Date of Service: 07/16/23 Chief Complaint: syncope HPI Narrative JUSTINE RUANO, is a 42 M with a PMH as outlined who was admitted via [facility] ED on 07/16/2023 with a complaint of syncope. He has a history of diabetes and is on metformin. He says he has not been tolerating the metformin well. HE was at work today and started having blurred vision, lightheadedness and nearly passed out. He had palpitations and felt very unwell. He has been following up with his PCP and says his kidney function has also been worsening. He says he was put on Jardiance but did not take it because it was too expensive; his metformin was also held last Thursday by his PCP due to worsening kidney function; he was not given anything else for diabetes and says he was told not to take the metformin till he followed up with nephrology. He had been given an appointment with nephrology for August 05. He says he has lost about 30 pounds unintentionally since November 2022. He denies any abdominal pain, nausea, vomiting or diarrhea. Review of systems is otherwise negative. He says he was diagnosed with diabetes mellitus last November 2022, after his blood sugar was checked and it was around 9mmol/L. He does not think he ever had an A1C done, though he is not sure; no A1C in the EMR. Vitals in the ED were BP of 129/81, ME of 65, RR of 12, oxygen sats of 93% on room air. CBC showed hemoglobin of 13.4 with WBC of 6.5 and platelets of 190. D-dimer was less than 0.27. Chemistry shows sodium of 125 with potassium of 4.1 and bicarb of 27 with anion gap of 11. Creatinine is 2.65 (baseline Cr is ~ 1.54). Blood glucose was 773. TSH was 0.96 and acetone level was negative in the blood. Chest x-ray showed no acute cardiopulmonary process. He has been admitted to be managed for HHS in the setting of poorly controlled diabetes mellitus. [facility] Medical History Abnormal stress test Essential (primary) hypertension SOB (shortness of breath) Home Medications ?Medication ?Instructions ?Recorded ?Last Taken ?Type guaifenesin 600 mg tablet, 600 mg PO Q12H PRN congestion 05/06/23 Unknown History extended release 12 hr (Mucinex) lisinopril 20 1 tab PO DAILY HTN 05/06/23 07/15/23 22:00 History mg-hydrochlorothiazide 25 mg tablet metformin 1,000 mg tablet 1,000 mg PO DAILY diabetes 05/06/23 Unknown History multivitamin 1 tab PO DAILY supplement 05/06/23 07/16/23 08:00 History amlodipine 10 mg tablet 10 mg PO DAILY #60 tabs 05/13/23 07/15/23 22:00 Rx aspirin 81 mg tablet,delayed 81 mg PO QDAY #60 tabs 05/13/23 07/15/23 22:00 Rx release (Adult Low Dose Aspirin) atorvastatin 40 mg tablet (Lipitor) 40 mg PO DAILY #90 tabs 05/25/23 07/15/23 22:00 Rx metoprolol succinate 50 mg 50 mg PO DAILY #60 tabs 05/25/23 07/16/23 08:00 Rx tablet,extended release 24 hr (Toprol XL) allopurinol 100 mg tablet 100 mg PO DAILY gout 07/16/23 07/16/23 08:00 History Allergy/AdvReac Type Severity Reaction Status Date / Time No Known Allergies Allergy Verified 05/25/23 15:40 Social History (Updated 07/16/23 @ 17:27 by Geraldine Mattson) household members: significant other housing: house Smoking Status: Never smoker alcohol intake: never ROS Constitutional Constitutional: Reports anorexia, fatigue, malaise and weakness; Denies change in weight, chills or fever(s) Eyes Eyes: Reports blurry vision and change in vision ENT HEENT: Denies dysphagia, headache(s) or nasal congestion Cardiovascular Cardiovascular: Reports lightheadedness, palpitations and rapid heart rate; Denies chest pain, dyspnea on exertion, edema, orthopnea, paroxysmal nocturnal dyspnea or syncope Respiratory/Chest Respiratory/Chest: Denies cough, dyspnea, shortness of breath at rest or shortness of breath with exertion Gastrointestinal Gastrointestinal: Reports nausea and vomiting; Denies abdominal pain, constipation or diarrhea Genitourinary Genitourinary: Denies burning urination or dysuria Musculoskeletal Musculoskeletal: Denies arthralgias or joint pain Neurologic Neurologic: Reports dizziness; Denies confusion, focal weakness, headache(s), numbness, seizure-like activity, seizures or syncope Psychiatric Psychiatric: Denies anxiety or depression Vital Signs Vital Signs Vital Signs: 07/16/23 12:46 07/16/23 12:46 07/16/23 13:37 Temperature 98.1 F Temperature Source Temporal Pulse Rate 91 78 Pulse Rate [Lying] Pulse Rate [Sitting (for 1 minute prior to obtaining)] Pulse Rate [Standing (for 1 minute prior to obtaining)] Respiratory Rate 14 14 Respiratory Effort Normal Respiratory Pattern Normal Blood Pressure 150/98 H 131/104 H Blood Pressure [Lying] Blood Pressure [Sitting (for 1 minute prior to obtaining)] Blood Pressure [Standing (for 1 minute prior to obtaining)] Blood Pressure Mean 115 113 Blood Pressure Mean [Lying] Blood Pressure Mean [Sitting (for 1 minute prior to obtaining)] Blood Pressure Mean [Standing (for 1 minute prior to obtaining)] Pulse Ox 97 96 Oxygen Delivery Method Room Air Room Air 07/16/23 13:39 07/16/23 14:10 07/16/23 14:46 Temperature Temperature Source Pulse Rate 65 Pulse Rate [Lying] 74 Pulse Rate [Sitting (for 1 minute prior to obtaining)] 82 Pulse Rate [Standing (for 1 minute prior to obtaining)] 87 Respiratory Rate 12 Respiratory Effort Respiratory Pattern Blood Pressure 129/81 H Blood Pressure [Lying] 128/79 H Blood Pressure [Sitting (for 1 minute prior to obtaining)] 145/103 H Blood Pressure [Standing (for 1 minute prior to obtaining)] 163/103 H Blood Pressure Mean 97 Blood Pressure Mean [Lying] 95 Blood Pressure Mean [Sitting (for 1 minute prior to obtaining)] 117 Blood Pressure Mean [Standing (for 1 minute prior to obtaining)] 123 Pulse Ox 98 93 Oxygen Delivery Method Room Air Room Air Weight Weight: 233 lb 14.567 oz Body Mass Index (BMI) 31.7 Physical Exam Const alert Constitutional Narrative: weak, looks unwell General Appearance: cooperative HEENT normocephalic and head/scalp atraumatic HEENT Narrative: dry oral mucosa Eyes PERRL, EOMs intact bilaterally and conjunctivae normal Neck no lymphadenopathy and supple Resp normal respiratory effort, no retractions, no use of accessory muscles and clear to auscultation bilaterally Cardio regular rate, regular rhythm, S1 normal heart sound, S2 normal heart sound and no murmurs GI normal to inspection, nondistended, normoactive bowel sounds, soft to palpation, non-tender and non-distended Extremity normal to inspection, full ROM and no clubbing, cyanosis or edema Neuro oriented x3, CN's II-XII intact bilaterally, moves all extremities and no focal motor deficits Sensorium / Orientation: awake and alert Motor Exam: strength 5/5 throughout Psych affect normal Results Lab / Micro Data 07/16/23 13:10 07/16/23 13:10 Labs: Laboratory Results - last 24 hr 07/16/23 13:10: WBC 6.5, RBC 4.48 L, Hgb 13.4, Hct 38.1 L, MCV 85.0, MCH 29.9, MCHC 35.2, RDW Std Deviation 37.2, RDW Coeff of Pippa 12.2, Plt Count 190, MPV 10.8, Immature Gran % (Auto) 0.500, Neut % (Auto) 61.1, Lymph % (Auto) 25.2, M amna % (Auto) 10.2 H, Eos % (Auto) 2.2, Baso % (Auto) 0.8, Absolute Neuts (auto) 4.0, Absolute Lymphs (auto) 1.63, Nucleated RBC % 0, D-Dimer Quant (PE/DVT) < 0.27 L, Sodium 125 L, Potassium 4.1, Chloride 87 L, Carbon Dioxide 27.0, Anion Gap 11, BUN 32 H, Creatinine 2.65 H, Estim Creat Clear Calc 46.65, Est GFR (MDRD) Af Amer 35 L, Est GFR (MDRD) Non-Af 29 L, BUN/Creatinine Ratio 12.1, G lucose 773 H*, Calcium 9.9, Magnesium 2.1, Total Bilirubin 0.50, Direct Bilirubin 0.14, AST 20, ALT 56, Alkaline Phosphatase 99, Troponin I High Sens 12, Total Protein 7.4, Albumin 3.9, Globulin 3.5, Lipase 112 H, TSH 0.96 07/16/23 14:57: Acetone Level NEGATIVE Imaging Radiology Impression Chest X-Ray 07/16/23 13:32 IMPRESSION: No acute abnormality is seen. Electronically Signed: Yanick Reveles MD at 14:08 EDT , Assessment & Plan Assessment/Plan (1) Hyperosmolar hyperglycemic state (HHS): PLAN: Plan #HHS in the setting of poorly controlled diabetes mellitus * Patient admitted with complaint of lightheadedness, dizziness and blurred vision. He is a known diabetic but this has been poorly controlled. He was initially placed on oral medication but this was too expensive so he was subsequently placed on p.o. metformin. He was not tolerating this and this has been held since last Thursday with patient having absolutely no coverage for his diabetes. * Blood sugar on admission was 776. Anion gap is normal and bicarb is also normal so is not in DKA. Acetone level was also normal. * Check A1c as no baseline A1c in the EMR. * Hydrate aggressively with IV fluids normal saline at 250 cc/h. Will give subcu lispro 15 units x 1 and repeat blood sugars in an hour to see. And try to hold off on having to place patient on insulin drip. High dose sliding scale * Will benefit from endocrinology follow-up on outpatient basis. * based on A1C, will initiate basal insulin * * Patient's A1C is 12.6. Blood sugars came down to 356 on arrival on the floor. Will therefore put on 1800 calorie diet and start on sq lantus 10 units bid. * #REDDY * Patient's creatinine is 2.65 with a baseline of around 1.54. Creatinine has gradually been going up. There is a question of this is worsening kidney disease from uncontrolled diabetes versus REDDY. Will hydrate with IV fluids and trend creatinine. * If it continues to go up we will consult nephrology. * Will get a baseline renal ultrasound to also assess kidneys. * #Hyponatremia: * Sodium is 125. This is likely pseudohyponatremia due to hyperglycemia. * Will hold hydrochlorothiazide and lisinopril. Should improve with hydration. # Hypertension: On amlodipine, lisinopril and hydrochlorothiazide as well as metoprolol. IV hydralazine as needed. Hold hydrochlorothiazide and lisinopril due to REDDY and hyponatremia. #History of abnormal stress test * Patient had an abnormal stress test in April 2023 and so he was referred for cardiac cath which showed clean coronaries. * It was thought that his symptoms were likely due to uncontrolled hypertension and plan was for aggressive risk factor modification. * #Hyperlipidemia: On statin DVT prophylaxis: lovenox Code status: full code Charges/Coding Visit Charges Inpatient E&M: 53177 Init Hosp L3
[2023-07-16 16:41] LABS: Troponin-I HS 14 pg/mL (3.0-78.0)
--- NOTE | 2023-07-16 16:54 | NURSING ---
PCU KORAM REDDY, HYPERGLYCEMIA, NEAR SYNCOPE, WEAKNESS
[2023-07-16 17:04] LABS: Bedside Glucose 434 mg/dL (74-106)
[2023-07-16 17:38] LABS: Hemoglobin A1c 12.6 % (3.8-5.6)
[2023-07-16] MEDS: 0.9% Saline Lock 10 ML Syringe IV (18:10)
[2023-07-16] MEDS: Insulin Lispro 100 UNIT/ML INSULN.PEN SC ×2 (18:10→22:30)
[2023-07-16] MEDS: 0.9% Normal Saline (1000mL) 1,000 ML 150 ML IV (18:10)
[2023-07-16 18:38] LABS: Bedside Glucose 357 mg/dL (74-106)
--- NOTE | 2023-07-16 18:47 | US_ITS ---
STUDY: RENAL ULTRASOUND - COMPLETE REASON FOR EXAM: Male, 42 years old. REDDY TECHNIQUE: Ultrasound evaluation of the kidneys was performed with real-time and static moreno-scale imaging. COMPARISON: None. FINDINGS: RIGHT KIDNEY: Normal location of the right kidney, which is normal in size. The right kidney measures 11.5 x 5.3 x 7.2 cm. Diffusely increased cortical echoes and prominence of the renal pyramids. The renal cortex measures 2.5 cm. There is no right renal mass or cyst. There are no right renal calculi. There is no right hydronephrosis. DISTAL RIGHT URETER: There is non-visualization of the distal right ureter. There is no demonstrated right ureterovesical junction calculus. There is a visualized right ureteral jet. LEFT KIDNEY: Normal location of the left kidney, which is normal in size. The left kidney measures 12.5 x 4.6 x 5.6 cm. Diffusely increased cortical echoes and prominence of the renal pyramids. The renal cortex measures 2.2 cm. There is no left renal mass or cyst. There are no left renal calculi. There is no left hydronephrosis. DISTAL LEFT URETER: There is non-visualization of the distal left ureter. There is no demonstrated left ureterovesical junction calculus. There is a visualized left ureteral jet. BLADDER: The distended urinary bladder has a volume of 210 ml. There is a normal wall thickness of the distended urinary bladder. There is no demonstrated mass within the urinary bladder. There are no demonstrated bladder calculi. US/Kidney and Bladder IMPRESSION: Findings consistent with nonspecific renal parenchymal disease. Electronically Signed: Gonzalo Bradford MD at 19:32 EDT ,
[2023-07-16 19:56] LABS: Bacteria 0 SEEN /hpf (None Seen); Mucous, Urine 0 SEEN /hpf (<or=2+); Red Blood Cells-Urine 0 SEEN /hpf (0-5); Squamous Epithelial Cells - UA 0 SEEN /hpf (0-5); White Blood Cells 0 SEEN /hpf (0-5)
[2023-07-16 20:07] LABS: Color, Urine Yellow (Yellow); Glucose, Dipstick 1000 mg/dl (Normal); Ketone-Dipstick Negative (Negative); Leukocyte Esterase-Dipstick Negative /ul (Negative); Nitrite-Dipstick Negative (Negative); Occult Blood-Urine Negative /ul (Negative); Protein-Dipstick Negative (Negative); Specific Gravity, Urine 1.015 (1.002-1.030); Urine Bilirubin Dipstick Negative (Negative); Urine Clarity Clear (Clear); Urine Urobilinogen Normal (Normal)
[2023-07-16 20:19] LABS: Urine Sodium 58 mmol/L (Not Establ.)
[2023-07-16] MEDS: Atorvastatin Calcium 40 MG Tablet PO (22:30)
[2023-07-16] MEDS: Insulin Glargine-YFGN 100 UNIT/ML Pen 10 UNIT SC (22:31)
[2023-07-16 22:55] LABS: Bedside Glucose 319 mg/dL (74-106)
[2023-07-17] MEDS: 0.9% Normal Saline (1000mL) 1,000 ML 150 ML IV ×2 (00:47→06:54)
[2023-07-17 04:07] VITALS: BP 121/84; PULSE 60; RESP 18; TEMP 36.8; O2SAT 98
[2023-07-17 06:04] LABS: Absolute Lymphocyte Count 2.06 X10^3/uL (0.83-4.51); Absolute Neutrophil Count 2.4 X10^3/uL (2.0-7.7); Basophil# 0.04 X10^3/uL; Basophil% 0.8 % (0-1); Eosinophils% 3.9 % (0-5); Hematocrit 33.4 % (40-54); Hemoglobin 11.5 g/dL (13.0-16.5); Lymphocyte # 2.06 X10^3/ul (0.83-4.51); Lymphocyte % 39.8 % (19-41); Mean Corp Hgb Conc 34.4 g/dL (32-36); Mean Corpuscular Hgb 29.9 pg (27.0-32.0); Mean Corpuscular Volume 86.8 fL (80-94); Mean Platelet Vol. 10.2 fl (6.2-12.0); Monocyte# 0.46 X10^3/uL; Monocyte% 8.9 % (0-10); NRBC Flagged by Analyzer 0 % (0-5); Neutrophil # 2.39 X10^3/uL (2.7-7.7); Neutrophil % 46.2 % (47-70); Platelet Count 163 K/mm3 (150-450); RBC Distribution Width CV 12.4 % (11.6-14.6); RBC Distribution Width SD 39.2 fl (35.1-43.9); Red Blood Count 3.85 M/mm3 (4.6-6.2); White Blood Count 5.2 K/mm3 (4.4-11.0)
[2023-07-17] MEDS: Insulin Lispro 100 UNIT/ML INSULN.PEN SC (06:32)
[2023-07-17 07:09] LABS: Bedside Glucose 229 mg/dL (74-106)
[2023-07-17 08:18] LABS: Anion Gap 9 (5-15); BUN 24 mg/dL (7-18); BUN/Creat Ratio 15.4 RATIO (10-20); Calcium,Total 8.5 mg/dL (8.5-10.1); Chloride 103 mmol/L (98-107); Creatinine, Serum 1.56 mg/dL (0.70-1.30); EST Glomerular Filtration Rate 53 mL/min (>60); Est Glom Filt Rate - Afr Amer 64 mL/min (>60); Estimated Creatinine Clearance 79.02 ml/min; Glucose 258 mg/dL (74-106); Potassium 3.6 mmol/L (3.5-5.1); Sodium Level 136 mmol/L (136-145)
[2023-07-17 08:47] VITALS: BP 158/95; PULSE 65; RESP 16; TEMP 36.8; O2SAT 98
[2023-07-17] MEDS: Multivitamins,Therapeutic Tablet 1 TABLET PO (09:05)
[2023-07-17] MEDS: Aspirin E.C. 81 MG Tablet PO (09:05)
[2023-07-17] MEDS: Insulin Glargine-YFGN 100 UNIT/ML Pen 10 UNIT SC ×2 (09:05→11:12)
[2023-07-17] MEDS: Allopurinol 100 MG Tablet PO (09:05)
[2023-07-17 09:06] VITALS: BP 158/95; PULSE 65
[2023-07-17] MEDS: amLODIPine 10 MG Tablet PO (09:06)
[2023-07-17] MEDS: Metoprolol(XL)Succ 50 MG Tablet PO (09:06)
[2023-07-17 09:28] LABS: Bedside Glucose 204 mg/dL (74-106)
--- NOTE | 2023-07-17 10:02 | CASEMGMT ---
SELIN YIN Assessment Face to Face with patient for initial transition planning/care coordination assessment. RN CM introduced self and role at [facility], pt voices understanding. Pt is A&Ox4 and is resting comfortably in bed and is calm. Care providers, pharmacy, and demographics verified. Admitting dx: HHS LACE Strata: 2 PCP: Zachary Leal Specialists: Pt is scheduled for his first visit with Dr. Key (Nephro) on the . Denies further specialists Preferred Pharmacy: [facility] Insurance: [employer] Prescription Benefit: Yes LNOK: Ambreen Coxvikki ([place]) Living Arrangements: Pt lives with his SO in a 2 story home with a BM and 3 steps to enter ADLs/IADLs: Ind Transportation: Self , SO DME: [facility] [employer]. Pt given Rx for BGM and supplies HHC/SNF: Denies Pt?s goal: Home Plan: Home with BGM and supplies. Dr. Monique signed Rx for this and physical copy given to the pt to bring to his preferred pharmacy. Pt denies further home going needs. CM to follow. Stephan Philip RN, CM
--- NOTE | 2023-07-17 10:30 | DS.PCM_ITS ---
Providers Date of Admission: 07/16/23 Primary Care Physician: Dr. Zachary Leal MD Reason For Visit: HHS Diagnosis Discharge Diagnosis (1) Hyperosmolar hyperglycemic state (HHS): Status: Acute Code(s): E11.00 - Type 2 diabetes mellitus with hyperosmolarity without nonketotic hyperglycemic-hyperosmolar coma (NKHHC) Plan Hyperosmolar non-ketosis: Secondary to uncontrolled diabetes. This is resolved. Diabetes mellitus type 2, uncontrolled. A1c is 12.6. Patient require insulin glargine upon discharge. He will need to check his blood sugar twice daily. REDDY: Likely due to dehydration. Improved with IV fluids. Hyponatremia: Pseudohyponatremia secondary to poorly controlled diabetes. Resolved. No additional workup at this time. Medications at Discharge Home Medications guaifenesin 600 mg tablet, extended release 12 hr (Mucinex) 600 mg PO Q12H PRN congestion 05/06/23 multivitamin 1 tab PO DAILY supplement 05/06/23 amlodipine 10 mg tablet 10 mg PO DAILY #60 tabs 05/13/23 aspirin 81 mg tablet,delayed release (Adult Low Dose Aspirin) 81 mg PO QDAY #60 tabs 05/13/23 atorvastatin 40 mg tablet (Lipitor) 40 mg PO DAILY #90 tabs 05/25/23 metoprolol succinate 50 mg tablet,extended release 24 hr (Toprol XL) 50 mg PO DAILY #60 tabs 05/25/23 allopurinol 100 mg tablet 100 mg PO DAILY gout 07/16/23 insulin glargine-yfgn 100 unit/mL (3 mL) subcutaneous pen 30 unit (0.3 mL) subcut DAILY #15 mL 07/17/23 pen needle, diabetic 29 gauge x 1/2 (Pen Needle) #100 ea 07/17/23 Hospital Course Operations None Procedures None Summary of Care Provided Minutes Spent on Discharge: 32 Hospital Course: Patient presents with syncope. Patient was at work and started having blurred vision, lightheadedness and nearly lost consciousness. Patient was noted to be in acute kidney injury with a creatinine of 2.65. His sodium is 125 and his blood sugar was 773. Patient was not in DKA but was not H and K. Patient did receive insulin glargine which blood sugars have improved. His A1c came back at 12.6. Patient had been on metformin but was not tolerating that and there was concerns about his kidneys at that was stopped. Discussed with the patient about insulin. 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 He will be on insulin glargine 30 daily. Patient will need to make restrictions to his diet and check his blood sugars at least twice daily. Patient admitted on the 6. He is improved significantly and is feeling much better. Patient is improved much faster than initially anticipated on admission. Physical Exam Const alert and no apparent distress Constitutional Narrative: Nontoxic. Laying in bed. Awake and alert. States that he is feeling better. Weight / BMI Weight Weight: 105.5 kg Body Mass Index (BMI) 31.5 ABG / Lab / Microbiology Data 07/17/23 05:50 07/17/23 05:50 Laboratory: Laboratory Results - last 24 hr 07/16/23 13:10: WBC 6.5, RBC 4.48 L, Hgb 13.4, Hct 38.1 L, MCV 85.0, MCH 29.9, MCHC 35.2, RDW Std Deviation 37.2, RDW Coeff of Pippa 12.2, Plt Count 190, MPV 10.8, Immature Gran % (Auto) 0.500, Neut % (Auto) 61.1, Lymph % (Auto) 25.2, M amna % (Auto) 10.2 H, Eos % (Auto) 2.2, Baso % (Auto) 0.8, Absolute Neuts (auto) 4.0, Absolute Lymphs (auto) 1.63, Nucleated RBC % 0, D-Dimer Quant (PE/DVT) < 0.27 L, Sodium 125 L, Potassium 4.1, Chloride 87 L, Carbon Dioxide 27.0, Anion Gap 11, BUN 32 H, Creatinine 2.65 H, Estim Creat Clear Calc 46.65, Est GFR (MDRD) Af Amer 35 L, Est GFR (MDRD) Non-Af 29 L, BUN/Creatinine Ratio 12.1, G lucose 773 H*, Hemoglobin A1c 12.6 H, Calcium 9.9, Magnesium 2.1, Total Bilirubin 0.50, Direct Bilirubin 0.14, AST 20, ALT 56, Alkaline Phosphatase 99, Troponin I High Sens 12, Total Protein 7.4, Albumin 3.9, Globulin 3.5, Lipase 112 H, TSH 0.96 06/06/24 14:57: Acetone Level NEGATIVE 07/16/23 15:46: Troponin I High Sens 14 07/16/23 16:44: POC Glucose 434 H 07/16/23 18:04: POC Glucose 357 H 07/16/23 19:45: Urine Color Yellow, Urine Clarity Clear, Urine pH 5.0, Ur Specific [place] 1.015, Urine Protein Negative, Urine Glucose (UA) 1000 H, Urine Ketones Negative, Urine Occult Blood Negative, Urine Nitrite Negative, Urine Bilirubin Negative, Urine Urobilinogen Normal, Ur Leukocyte Esterase Negative, Urine RBC 0 SEEN, Urine WBC 0 SEEN, Ur Squamous Epith Cells 0 SEEN, Urine Bacteria 0 SEEN, Urine Mucus 0 SEEN, Ur Random Sodium 58, Urine Creatinine 79.90 07/16/23 22:29: POC Glucose 319 H 07/17/23 05:50: WBC 5.2, RBC 3.85 L, Hgb 11.5 L, Hct 33.4 L, MCV 86.8, MCH 29.9, MCHC 34.4, RDW Std Deviation 39.2, RDW Coeff of Pippa 12.4, Plt Count 163, MPV 10.2, Immature Gran % (Auto) 0.400, Neut % (Auto) 46.2 L, Lymph % (Auto) 39.8, [place] % (Auto) 8.9, Eos % (Auto) 3.9, Baso % (Auto) 0.8, Absolute Neuts (auto) 2.4, Absolute Lymphs (auto) 2.06, Nucleated RBC % 0, Sodium 136, Potassium 3.6, Chloride 103, Carbon Dioxide 24.0, Anion Gap 9, BUN 24 H, Creatinine 1.56 H, Estim Creat Clear Calc 79.02, Est GFR (MDRD) Af Amer 64, Est GFR (MDRD) Non-Af 53 L, BUN/Creatinine Ratio 15.4, Glucose 258 H, Calcium 8.5 07/17/23 06:30: POC Glucose 229 H 07/17/23 08:56: POC Glucose 204 H Radiography Diagnostic Testing: Radiology Impression Chest X-Ray 07/16/23 13:32 IMPRESSION: No acute abnormality is seen. Electronically Signed: Yanick Reveles MD at 14:08 EDT , Renal Ultrasound 07/16/23 18:47 IMPRESSION: Findings consistent with nonspecific renal parenchymal disease. Electronically Signed: Gonzalo Bradford MD at 19:32 EDT Reading Location ID and State: [facility] / [place] Tel , Service support , Meaningful Use Info Meaningful Use Meaningful Use Diagnoses (Choose all that apply): None applicable Ischemic Stroke Statin Dosing Therapy Reference: STATIN DOSE THERAPY REFERENCE: * Patients > 75 years receive moderate or high dose statin therapy. * Patients 75 years or YOUNGER should receive HIGH intensity statin dose unless contraindicated. You will be required to document reason for non-treatment if statin daily dose does not meet guidelines. HIGH DOSE STATIN THERAPY DAILY Atorvastatin > than or = to 40 mg Rosuvastatin > than or = to 20 mg Amlodipine + Atorvastatin > than or = to 2.5/40 mg Ezetimibe + Simvastatin 10/80 mg Simvastatin 80mg Discharge Plan Admission Admit Date/Time: 07/16/23 16:19 Primary Reason for Your Visit: Uncontrolled diabetes Attending Provider: Tee Monique Primary Care Provider: Zachayr Leal Consulting Providers: Maryam Grover Instructions Patient Instructions: Diabetes Exercise Starting, Diabetes Low Blood Sugar Ch, Diabetes Care Ch, Diabetes Manage Stress, Diabetes and Illness Additional Instructions / Restrictions: Muscular symptoms is due to your diabetes being very uncontrolled. You will be on a long-acting insulin, insulin glargine (also known as Lantus). You will administer that once daily. I do recommend that you check your blood sugar twice a day and as needed if you are having symptoms of low blood sugar. Keep a record of your blood sugars and provide to your primary care doctor when you do follow-up. Discharge Orders/Prescriptions Prescriptions: New insulin glargine-yfgn 100 unit/mL (3 mL) Insulin Pen 30 unit subcut DAILY Qty: 15 0RF (DME) pen needle, diabetic [Pen Needle] 29 gauge x 1/2 needle See Rx Instructions .Route Qty: 100 0RF Rx Instructions: As directed Continued guaifenesin [Mucinex] 600 mg tablet extended release 12hr 600 mg PO Q12H PRN (Reason: congestion) multivitamin Tablet 1 tab PO DAILY aspirin [Adult Low Dose Aspirin] 81 mg tablet,delayed release (DR/EC) 81 mg PO QDAY Qty: 60 3RF amlodipine 10 mg tablet 10 mg PO DAILY Qty: 60 3RF allopurinol 100 mg tablet 100 mg PO DAILY atorvastatin [Lipitor] 40 mg tablet 40 mg PO DAILY Qty: 90 3RF metoprolol succinate [Toprol XL] 50 mg tablet extended release 24 hr 50 mg PO DAILY Qty: 60 3RF Discontinued metformin 1,000 mg tablet 1,000 mg PO DAILY lisinopril-hydrochlorothiazide 20-25 mg tablet 1 tab PO DAILY Referrals / Follow Up: Zachary Leal MD [Primary Care Provider] - Within 2 Weeks Disposition Disposition (needs filled in before D/C Order can be placed): Home, Self Care Charges/Coding Visit Charges Inpatient E&M: 66287 Disch Hosp >30min
[2023-07-17 11:36] LABS: Bedside Glucose 303 mg/dL (74-106)
--- NOTE | 2023-07-17 12:31 | PHA.DC_ITS ---
Pharmacy [facility] Service has performed discharge medication reconciliation and counseling for this patient. The patient's discharge medication list was reviewed for discrepancies and discrepancies were resolved. The patient was counseled on the following discharge medications and changes in medications for homegoing were reviewed. 1. INSULIN GLARGINE The Reason for Use, instructions for use, and potential side effects were reviewed for all new medications. The patient's questions regarding all of their medications were answered. The patient was able to verbally demonstrate an understanding of their discharge medications. The patient was counselled by Ayaka Kate, Nigel Candidate
== END 2023-07-17 11:33 | disposition home or self-care (01) | DRG 638 ==
LOC: ED 13:17 → PCU 16:55
PROVIDERS: Nurse Practitioner; Admitting Provider Student in an Organized Health Care Education/Training Program; Emergency Provider Student in an Organized Health Care Education/Training Program; PCP Family Medicine
DX: E11.00 Type 2 diabetes mellitus with hyperosmolarity without nonketotic hyperglycemic-hyperosmolar coma (NKHHC) (principal); N17.9 Acute kidney failure, unspecified; I10 Essential (primary) hypertension; E78.5 Hyperlipidemia, unspecified; Z79.82 Long term (current) use of aspirin; Z79.899 Other long term (current) drug therapy; Z79.84 Long term (current) use of oral hypoglycemic drugs
CPT/HCPCS: 36415; 71045; 76770; 80048; 80076; 81001; 82009; 82570; 82962; 83036; 83690; 83735; 84300; 84443; 84484; 85025; 85379; 93005; 99285; J7030; A4216

== ENCOUNTER → 2023-08-06 | Outpatient (CLI) | payer OTHER, SELFPAY ==
[2023-08-06 15:24] LABS: Hematocrit 39.8 % (40-54); Hemoglobin 13.1 g/dL (13.0-16.5); Mean Corp Hgb Conc 32.9 g/dL (32-36); Mean Corpuscular Hgb 28.5 pg (27.0-32.0); Mean Corpuscular Volume 86.5 fL (80-94); Mean Platelet Vol. 9.9 fl (6.2-12.0); Platelet Count 230 K/mm3 (150-450); RBC Distribution Width CV 12.2 % (11.6-14.6); RBC Distribution Width SD 38.6 fl (35.1-43.9); White Blood Count 6.2 K/mm3 (4.4-11.0)
[2023-08-06 15:55] LABS: Microalbumin,Random Urine < 5.0 mg/L (NO RANGE EST.)
[2023-08-06 15:56] LABS: Vitamin D,25 Hydroxy 32.2 ng/mL
[2023-08-06 15:58] LABS: Albumin, Serum 4.2 g/dL (3.2-5.0); BUN 17 mg/dL (7-18); BUN/Creat Ratio 9.8 RATIO (10-20); Chloride 103 mmol/L (98-107); Creatinine, Serum 1.73 mg/dL (0.70-1.30); EST Glomerular Filtration Rate 47 mL/min (>60); Est Glom Filt Rate - Afr Amer 56 mL/min (>60); Ferritin 25 ng/mL (26-388); Glucose 311 mg/dL (74-106); Iron 38 ug/dL (65-175); Iron Binding Capacity,Total 408 ug/dL (250-450); Phosphorus 3.9 mg/dL (2.5-4.9); Potassium 3.9 mmol/L (3.5-5.1); Sodium Level 136 mmol/L (136-145); Uric Acid 5.4 mg/dL (3.5-7.2)
== END | disposition home or self-care (01) ==
LOC: LAB 14:33
PROVIDERS: PCP Family Medicine; Visit Provider Internal Medicine Nephrology
DX: N18.32 Chronic kidney disease, stage 3b (principal); M10.9 Gout, unspecified; D64.9 Anemia, unspecified
CPT/HCPCS: 36415; 80069; 82043; 82306; 82570; 82728; 83540; 83550; 84550; 85027

== ENCOUNTER 2023-08-24 17:54 | Inpatient (IN) | payer OTHER, SELFPAY ==
[2023-08-24 17:55] VITALS: BP 175/122; PULSE 84; RESP 16; TEMP 36.5; O2SAT 97
--- NOTE | 2023-08-24 18:05 | RAD_ITS ---
INDICATION: PAIN EXAMINATION/TECHNIQUE: X-RAY - RIGHT XR Knee Complete 4 Views COMPARISON: FINDINGS: SOFT TISSUES: There is a moderate effusion. No radiopaque foreign body. BONES/JOINTS: No acute fracture or subluxation.. Normal alignment. Preservation of the joint space.. No sclerotic or destructive changes observed. RAD/Knee 4 or More Views IMPRESSION: There is a artery effusion. Electronically Signed: Farzad Bob DO at 18:58 EDT ,
--- NOTE | 2023-08-24 19:13 | CT_ITS ---
CT RIGHT LOWER EXTREMITY WITH 3-D IMAGING CLINICAL INDICATION: right knee pain/effusion TECHNIQUE: Axial CT images of the RIGHT lower extremity was performed without IV contrast material. Coronal and sagittal reformats were provided. The protocol utilizes one or more of the following dose reduction techniques: automated exposure control, adjustment of mA and/or kV according to patient size,and/or use of iterative reconstruction technique. RADIATION DOSAGE (If Supplied By Facility): CTDIvol = ( 15.35 ) mGy, DLP = ( 614.73 ) mGycm COMPARISON: FINDINGS: Bones: Osseous structures are normal without evidence of fracture or dislocation. No lytic or blastic osseous masses. Soft Tissues: The deep soft tissue structures are unremarkable. There is a significant effusion. There is mild subcutaneous edema posterolaterally to the knee. CT/Extremity Lower without Contra IMPRESSION: Significant effusion. Correlate with MRI for internal derangement. Electronically Signed: Farzad Bob DO at 21:34 EDT Reading Location ID and State: [facility] / [place] Tel [phone], Service support ,
[2023-08-24] MEDS: morphine 10 MG/ML Syringe 8 MG IM (19:24)
[2023-08-24] MEDS: Ondansetron ODT 4 MG Tablet PO (19:24)
--- NOTE | 2023-08-24 19:48 | EDS_ITS ---
HPI History of Present Illness Chief Complaint: Lower Extremity Injury Informant: patient Narrative Narrative: Patient is a 42-year-old male with history of insulin-dependent diabetes mellitus, hypertension and gout presenting with worsening right knee pain and sw elling. Patient was camping over the weekend. He states on Thursday, 3 days ago, he was try to get into his truck and he had a sudden pain in his right knee. Denies any popping sensation. Notes it just felt sore afterwards. Shortly after that he actually lost his balance and fell backwards because of this knee. He states that he was doing okay the next 2 days but then suddenly today he had a significant increase pain and swelling. Denies any new trauma or injury. Did not take anything for pain prior to arrival today. Has only tried Tylenol. Has had a hard time moving around because of the pain and came in for further evaluation. No other complaints or concerns reported at this time. No reported fever. No numbness or tingling of the lower extremity. [facility] Medical History Effusion, right knee Abnormal stress test Essential (primary) hypertension SOB (shortness of breath) Home Medications ?Medication ?Instructions ?Recorded ?Last Taken ?Type guaifenesin 600 mg tablet, 600 mg PO Q12H PRN congestion 05/06/23 Unknown History extended release 12 hr (Mucinex) multivitamin 1 tab PO DAILY supplement 05/06/23 07/16/23 08:00 History amlodipine 10 mg tablet 10 mg PO DAILY blood pressure #60 05/13/23 07/15/23 22:00 Rx tabs aspirin 81 mg tablet,delayed 81 mg PO QDAY heart health #60 tabs 05/13/23 07/15/23 22:00 Rx release (Adult Low Dose Aspirin) atorvastatin 40 mg tablet (Lipitor) 40 mg PO DAILY high cholesterol 05/25/23 07/15/23 22:00 Rx #90 tabs metoprolol succinate 50 mg 50 mg PO DAILY heart/blood 05/25/23 07/16/23 08:00 Rx tablet,extended release 24 hr pressure #60 tabs (Toprol XL) allopurinol 100 mg tablet 100 mg PO DAILY gout 07/16/23 07/16/23 08:00 History pen needle, diabetic 29 gauge x #100 ea 07/17/23 Unknown Rx 1/2 (Pen Needle) clonidine HCl 0.1 mg tablet 0.1 mg PO TID 08/25/23 Unknown History insulin glargine 100 unit/mL (3 50 unit subcut DAILY 08/25/23 Unknown History mL) subcutaneous pen (Lantus Solostar U-100 Insulin) Allergy/AdvReac Type Severity Reaction Status Date / Time No Known Allergies Allergy Verified 05/25/23 15:40 Social History household members: significant other housing: house Smoking Status: Never smoker alcohol intake: never ROS ROS ED Constitutional Constitutional ED: Denies chills or fever(s) Gastrointestinal Gastrointestinal: Reports nausea and other Details: Reports mild nausea secondary to pain ; Denies vomiting Musculoskeletal Musculoskeletal: Reports other Details: Right knee pain and swelling Integumentary Denies Abrasions or rash Neurologic Neurologic: Denies paresthesias or weakness Hematologic/Lymphatic Hematologic/Lymphatic: Denies easy bleeding or easy bruising EXAM Physical Exam Const Vital Signs: 08/24/23 17:55 08/24/23 19:55 08/24/23 21:00 Temperature 97.7 F L Temperature Source Temporal Pulse Rate 84 64 63 Respiratory Rate 16 18 16 Blood Pressure 175/122 H 164/104 H 180/102 H Blood Pressure Mean 139 124 128 Pulse Ox 97 94 95 Oxygen Delivery Method Room Air Room Air 08/24/23 23:00 Temperature Temperature Source Pulse Rate 66 Respiratory Rate 16 Blood Pressure 172/111 H Blood Pressure Mean 131 Pulse Ox 94 Oxygen Delivery Method Room Air Positive well nourished and well developed General Appearance ED: well developed and NAD HEENT Reports moist mucous membranes Neck supple Resp normal respiratory effort Cardio regular rate and regular rhythm Cardio Narrative: 2+ DP pulses Extremity Extremity Narrative: Right lower extremity?normal hip with normal range of motion, no tenderness palpation. Decreased range of motion of the right knee. Significant effusion noted as well as swelling of the superior medial aspect of the knee is nontender. Does have significant tenderness palpation of the superior lateral aspect of the right knee. Decreased range of motion however secondary to pain. No short arc range of motion pain. Compartments are soft. No tenderness palpation of the fibular head or tibial plateau. Neuro oriented x3 Sensorium / Orientation: alert Motor Exam: Negative for general weakness Psych mental status grossly normal Skin Lesions: no lesions Rashes: no rashes MDM MDM MDM Narrative Medical decision making narrative: Patient is evaluated for worsening right knee pain and swelling. He had a mild injury 3 days ago but was walking on it fine until today when the swelling and pain became significantly worse. Denies any systemic symptoms. We took Tylenol for pain with no relief. Does have a history of gout but never in his knee (always been in his toes). X-ray shows significant effusion but no acute process. Is given dose of morphine which makes him sleepy but he still would not range of motion his knee. Given his degree of pain and effusion will obtain CT of the knee to make sure there is an occult fracture. This is negative for fracture but again shows a large effusion. Decision was made to perform an arthrocentesis of the joint, see procedure note. Patient has hazy synovial fluid and approximately 80 cc is drained half. Patient tolerated this reasonably well. Synovial fluid does not show any initial crystals however is waiting for path review. He has 16.6 thousand white blood cells per high-power field with neutrophil predominance. Gram stain is negative. Case is discussed with Dr. Ferreira, who recommends admission. He states can defer antibiotics at this time and he will see the patient in the morning. I will add on lab work including CBC, BMP, ESR, sed rate and Lyme titer as patient does go camping however he denies any recent tick bites. Is given additional dose of IV morphine for further pain control. Case is discussed admitting phys vin, Dr. Titus. He would like to go ahead and order IV antibiotics for the patient in case that this is truly septic joint. I think that is reasonable. He will place the order. Patient and agreeable with this plan of care. Lab Data Attestation: I reviewed the patient's lab results. Labs: Laboratory Results - last 24 hr 08/24/23 08/25/23 22:30 00:25 WBC 7.0 RBC 4.37 L Hgb 12.4 L Hct 37.4 L MCV 85.6 MCH 28.4 MCHC 33.2 RDW Std Deviation 38.8 RDW Coeff of [place] 12.6 Plt Count 212 MPV 9.8 Immature Gran % (Auto) 1.000 H Neut % (Auto) 57.8 Lymph % (Auto) 22.7 [place] % (Auto) 14.5 H Eos % (Auto) 3.7 Baso % (Auto) 0.3 Absolute Neuts (auto) 4.0 Absolute Lymphs (auto) 1.58 Nucleated RBC % 0 ESR 29 H Fluid Crystals See PATH REV Fluid Crystal Source SYNOVIAL Synovial Source RT KNEE Synovial Color Yellow Synovial Appearance Hazy Synovial WBC 16.6980 H Synovial RBC [address] H Synovial Tot Cell Ct 16.7220 H Synov Polynuclear WBCs 17.039 Synov Mononuclear WBCs 1.135 Synovial Neutrophils 97 H Synovial Monocytes 3 Synovial Polynuclear % 93.7 Synovial Mononuclear % 6.3 Synovial Path Comment May follow Radiography Diagnostic Testing: Clinical Impression(s) from Imaging Studies Knee X-Ray 08/24/23 18:05 IMPRESSION: There is a artery effusion. Electronically Signed: Farzad Bob DO at 18:58 EDT , Lower Extremity CT 08/24/23 19:13 IMPRESSION: Significant effusion. Correlate with MRI for internal derangement. Electronically Signed: Farzad Bob DO at 21:34 EDT , Discharge Plan Triage Chief Complaint: Lower Extremity Injury ED Provider: Diana Whitaker Dx/Rx/DC Orders Clinical Impression: Effusion, right knee, Acute pain of right knee Primary Care Provider: Zachary Leal Disposition Disposition: Acute Care [facility]
[2023-08-24 19:55] VITALS: BP 164/104; PULSE 64; RESP 18; O2SAT 94
[2023-08-24 21:00] VITALS: BP 180/102; PULSE 63; RESP 16; O2SAT 95
[2023-08-24] MEDS: Lidocaine 1% (20 ml mdv) 20 ML Vial INFILT (22:14)
[2023-08-24] MEDS: Acetaminophen 325 MG Tablet 650 MG PO (22:40)
[2023-08-24 22:52] LABS: AUTO B FLUID DILUENT BKGD CT WBC <0.1 RBC <0.01 (W<.1,R<.01)
[2023-08-24 22:53] LABS: Appearance /Synovial Fluid Hazy (CLEAR); CRYSTALS, BODY FLUID See PATH REV; Color / Synovial Fluid Yellow (Pale Yellow); Source / Synovial Fluid RT KNEE; Source- Body Fluid SYNOVIAL
[2023-08-24 23:00] VITALS: BP 172/111; PULSE 66; RESP 16; O2SAT 94
[2023-08-24 23:11] LABS: RBC /Synovial Fluid 22 /mm3 (0)
[2023-08-24 23:13] LABS: Synovial Fld Mononuclear WBC # 1.135 10^3/ul; Synovial Fld Mononuclear WBC % 6.3 %; Synovial Fld Polynuclear WBC # 17.039 10^3/uL; Synovial Fld Polynuclear WBC % 93.7 %
[2023-08-24 23:17] LABS: Body Fluid QC Type(s) BF2Q,BF3Q
[2023-08-24 23:36] LABS: Monocyte /Synovial Fluid 3 %; Neutrophil 97 % (0-25)
[2023-08-25] VITALS (19 sets, daily range): BP systolic 129–166; BP diastolic 74–111; PULSE 57–104; RESP 16–20; TEMP 36.2–36.8; O2SAT 88–99; BMI 32.5
--- NOTE | 2023-08-25 00:15 | HP.PCM.HOS_ITS ---
[facility] - General General Date of Admission: 08/25/23 Date of Service: 08/25/23 Chief Complaint: Right Knee Pain and Swelling. HPI Narrative JUSTINE PHILIP, is a 42 M with a past medical history of essential hypertension, hyperlipidemia, history of abnormal stress test, DM-2; of unknown control and history of Gout who presents to [facility] ER complaining of Right knee pain and swelling. Mr. Philip reports his symptoms began approximately three days prior to admission on Thursday, August 21, 2023 while he was out camping over the weekend. He states on Thursday he was trying to get into his truck when he felt a sudden and severe pain in his Right knee followed by moderate soreness that had transiently stabilized. He then actually lost his balance and fell backward because of his knee and had been doing okay until earlier today when he suddenly developed severe pain followed by rapid swelling that have caused him to be unable to bare weight so he decided to come in for further evaluation and treatment. He denies hearing a popping sound emanating from his Right knee, numbness or tingling in his Right leg, fever, chills or vomiting but he does admit to nausea. He also denies recent trauma, injury, overuse, similar previous episodes or recent gout flare with no pain or swelling in his Left great toe where he usually develops symptoms. He did take Tylenol without improvement of his symptoms. In the ER he was noted to have a massive joint effusion with ~80 cc of cloudy fluid removed in the ER with synovial WBC elevated at 16.68K with 97% PMN's with a negative Gram-stain and no crystals noted on preliminary fluid analysis with CT of the Right knee revealing large effusion with mild subcutaneous edema posterolaterally to the Right knee with a high-index of suspicion for Septic Arthritis complicated by severe pain and ambulatory dysfunction and he was then admitted to the general medical floor for ongoing care for a stay that is expected to extend beyond 2 midnights. [facility] Medical History Diabetes Effusion, right knee Abnormal stress test Essential (primary) hypertension SOB (shortness of breath) Home Medications ?Medication ?Instructions ?Recorded ?Last Taken ?Type guaifenesin 600 mg tablet, 600 mg PO Q12H PRN congestion 05/06/23 Unknown History extended release 12 hr (Mucinex) multivitamin 1 tab PO DAILY supplement 05/06/23 07/16/23 08:00 History amlodipine 10 mg tablet 10 mg PO DAILY blood pressure #60 05/13/23 07/15/23 22:00 Rx tabs aspirin 81 mg tablet,delayed 81 mg PO QDAY heart health #60 tabs 05/13/23 07/15/23 22:00 Rx release (Adult Low Dose Aspirin) atorvastatin 40 mg tablet (Lipitor) 40 mg PO DAILY high cholesterol 05/25/23 07/15/23 22:00 Rx #90 tabs metoprolol succinate 50 mg 50 mg PO DAILY heart/blood 05/25/23 07/16/23 08:00 Rx tablet,extended release 24 hr pressure #60 tabs (Toprol XL) allopurinol 100 mg tablet 100 mg PO DAILY gout 07/16/23 07/16/23 08:00 History pen needle, diabetic 29 gauge x #100 ea 07/17/23 Unknown Rx 1/2 (Pen Needle) clonidine HCl 0.1 mg tablet 0.1 mg PO TID 08/25/23 Unknown History insulin glargine 100 unit/mL (3 50 unit subcut DAILY 08/25/23 Unknown History mL) subcutaneous pen (Lantus Solostar U-100 Insulin) Allergy/AdvReac Type Severity Reaction Status Date / Time No Known Allergies Allergy Verified 05/25/23 15:40 Social History household members: significant other housing: house Smoking Status: Never smoker alcohol intake: never ROS ROS Narrative Review of systems: General: Patient denies fever or chills. HENT: Denies headache, denies stuffy nose, denies sore throat EYES: Denies changes in vision or discharge from eyes Resp: Denies cough, denies shortness of breath Cardiac: Denies chest pain, palpitations or heart racing. GI: Denies abdominal pain, denies changes in bowel, had some nausea but denies vomiting. : Denies changes in urination Extremity: Patient admits to severe Right knee pain and swelling with inability to ambulate as per HPI. Musculoskeletal: Feels somewhat generally weak and unwell with severe arthralgia of the Right knee. Neuro: Patient denies headache, paresthesias or focal neurologic deficits. Heme: Denies any bleeding or bruising Skin: Denies rashes Psychiatric: No complaints voiced related to uncontrolled depression or anxiety. Endocrine: No polyuria, polydipsia or polyphagia. The rest of the 14 point ROS was negative except for positives in HPI. Vital Signs Vital Signs Vital Signs: 08/24/23 17:55 08/24/23 19:55 08/24/23 21:00 Temperature 97.7 F L Temperature Source Temporal Pulse Rate 84 64 63 Respiratory Rate 16 18 16 Blood Pressure 175/122 H 164/104 H 180/102 H Blood Pressure Mean 139 124 128 Pulse Ox 97 94 95 Oxygen Delivery Method Room Air Room Air 08/24/23 23:00 Temperature Temperature Source Pulse Rate 66 Respiratory Rate 16 Blood Pressure 172/111 H Blood Pressure Mean 131 Pulse Ox 94 Oxygen Delivery Method Room Air Physical Exam Const alert, oriented x3 and average body habitus Constitutional Narrative: Mild distress noted. General Appearance: cooperative HEENT normocephalic, head/scalp atraumatic, hearing grossly normal bilaterally and moist oral mucous membranes Eyes PERRL and EOMs intact bilaterally Neck no lymphadenopathy and supple Resp normal respiratory effort, no retractions, no use of accessory muscles and clear to auscultation bilaterally Cardio regular rate and regular rhythm GI normal to inspection, nondistended, normoactive bowel sounds, soft to palpation, non-tender and non-distended Extremity Extremity Narrative: Severe swelling and pain of the Right knee with significant residual effusion in spite of arthrocentesis in the ER with ~80 cc of cloudy fluid removed. Good pulses throughout with no signs of vascular compromise. Skin Skin Narrative: Patient has no evidence of rash, abscess or jaundice. Neuro oriented x3, CN's II-XII intact bilaterally, moves all extremities and no focal motor deficits Sensorium / Orientation: awake, alert, oriented to person, oriented to place and oriented to time Speech: speech normal Psych affect normal Results Medical Records Data Attestation: I reviewed the patient's medical records Lab / Micro Data Attestation: I reviewed the patient's lab results. 08/25/23 00:25 08/25/23 00:25 Labs: Laboratory Results - last 24 hr 08/24/23 22:30: Fluid Crystals See PATH REV, Fluid Crystal Source SYNOVIAL, Synovial Source RT KNEE, Synovial Color Yellow, Synovial Appearance Hazy, S ynovial WBC 16.6980 H, Synovial RBC 22 H, Synovial Tot Cell Ct 16.7220 H, Synov Polynuclear WBCs 17.039, Synov Mononuclear WBCs 1.135, Synovial Neutrophils 97 H , Synovial Monocytes 3, Synovial Polynuclear % 93.7, Synovial Mononuclear % 6.3, Synovial Path Comment May follow Micro: Microbiology 08/24/23 22:30 Fluid - Synovial (joint) Gram Stain - Preliminary Imaging Radiology Impression Knee X-Ray 08/24/23 18:05 IMPRESSION: There is a artery effusion. Electronically Signed: Farzad Bob DO at 18:58 EDT , Lower Extremity CT 08/24/23 19:13 IMPRESSION: Significant effusion. Correlate with MRI for internal derangement. Electronically Signed: Farzad Bob DO at 21:34 EDT , Assessment & Plan Assessment/Plan (1) Effusion, right knee: (2) DM (diabetes mellitus), type 2, uncontrolled: QUALIFIERS: Glycemic state: with hyperglycemia Qualified Code(s): E11.65 - Type 2 diabetes mellitus with hyperglycemia (3) Uncontrolled hypertension: PLAN: Plan 1. Massive joint effusion with ~80 cc of cloudy fluid removed in the ER with synovial WBC elevated at 16.68K with 97% PMN's with a negative Gram-stain and no crystals noted on preliminary fluid analysis with CT of the Right knee revealing large effusion with mild subcutaneous edema posterolaterally to the Right knee with a high-index of suspicion for Septic Arthritis in the setting of known Gout - Admit to general medical floor. Start empiric IV antibiotics with IV Vancomycin and IV Zosyn and await culture and sensitivity data plus more in- depth fluid analysis to clarify underlying etiology. Check ESR and CRP. Give Tylenol prn for [id number] (level 1-5/10) pain or fever. Give Morphine IV prn for severe (level 6-10/10) pain. Finally, we will consult orthopod on-call to see this patient on-rounds in the AM for further recommendations with help appreciated in advance. 2. DM-2; of unknown control complicating #1 - Keep NPO for now. FSBS q. 6 hours plus lowest-intensity SSI. Check HgbA1c to objectively assess quality of diabetic control. 3. Uncontrolled hypertension with elevated blood pressure of 175/122 mmHg present on admission compounding #1 & #2 - Continue home regimen plus give IV Hydralazine for systolic blood pressure > 160 mmHg. 4. Hyperlipidemia - Resume statin. 5. History of abnormal stress test - Noted. 6. DVT prophylaxis - Place SCD on LLE and hold on chemoprophylaxis as he may require surgery and we also want to minimize potential bleeding complications after recent arthrocentesis. Total time: Approximately 55 minutes. Charges/Coding Visit Charges Inpatient E&M: 40982 Init Hosp L2
--- NOTE | 2023-08-25 00:18 | CON.PCM.OR_ITS ---
HPI Consult Data Date of Consult: 08/25/23 HPI Narrative HPI Narrative: JUSTINE RUANO, is a 42 M who presents R knee pain and swelling. H and P per the ED doc who called at 1210am. 3 days history knee pain and swelling. No obvious injury. No fevers or chills. No infectious contact. Has been camping. hx gout. [facility] Medical History (Updated 08/25/23 @ 00:20 by Claus Ferreira MD) Effusion, right knee Abnormal stress test Essential (primary) hypertension SOB (shortness of breath) Home Medications ?Medication ?Instructions ?Recorded ?Last Taken ?Type guaifenesin 600 mg tablet, 600 mg PO Q12H PRN congestion 05/06/23 Unknown History extended release 12 hr (Mucinex) multivitamin 1 tab PO DAILY supplement 05/06/23 07/16/23 08:00 History amlodipine 10 mg tablet 10 mg PO DAILY blood pressure #60 05/13/23 07/15/23 22:00 Rx tabs aspirin 81 mg tablet,delayed 81 mg PO QDAY heart health #60 tabs 05/13/23 07/15/23 22:00 Rx release (Adult Low Dose Aspirin) atorvastatin 40 mg tablet (Lipitor) 40 mg PO DAILY high cholesterol 05/25/23 07/15/23 22:00 Rx #90 tabs metoprolol succinate 50 mg 50 mg PO DAILY heart/blood 05/25/23 07/16/23 08:00 Rx tablet,extended release 24 hr pressure #60 tabs (Toprol XL) allopurinol 100 mg tablet 100 mg PO DAILY gout 07/16/23 07/16/23 08:00 History insulin glargine-yfgn 100 unit/mL 30 unit (0.3 mL) subcut DAILY #15 07/17/23 Unknown Rx (3 mL) subcutaneous pen mL pen needle, diabetic 29 gauge x #100 ea 07/17/23 Unknown Rx 1/2 (Pen Needle) Allergy/AdvReac Type Severity Reaction Status Date / Time No Known Allergies Allergy Verified 05/25/23 15:40 Social History household members: significant other housing: house Smoking Status: Never smoker alcohol intake: never Vital Signs Vital Signs Vital Signs: 08/24/23 17:55 08/24/23 19:55 08/24/23 21:00 Temperature 97.7 F L Temperature Source Temporal Pulse Rate 84 64 63 Respiratory Rate 16 18 16 Blood Pressure 175/122 H 164/104 H 180/102 H Blood Pressure Mean 139 124 128 Pulse Ox 97 94 95 Oxygen Delivery Method Room Air Room Air 08/24/23 23:00 Temperature Temperature Source Pulse Rate 66 Respiratory Rate 16 Blood Pressure 172/111 H Blood Pressure Mean 131 Pulse Ox 94 Oxygen Delivery Method Room Air Physical Exam Const Constitutional Narrative: per ED derrick difficulty with ROM of the knee on right, effusion, no redness or drainage, trace warmth Lab / Micro Data Labs: Laboratory Results - last 24 hr 08/24/23 22:30: Fluid Crystals See PATH REV, Fluid Crystal Source SYNOVIAL, Synovial Source RT KNEE, Synovial Color Yellow, Synovial Appearance Hazy, Synovial WBC 16.6980 H, Synovial RBC 22 H, Synovial Tot Cell Ct 16.7220 H, Synov Polynuclear WBCs 17.039, Synov Mononuclear WBCs 1.135, Synovial Neutrophils 97 H , Synovial Monocytes 3, Synovial Polynuclear % 93.7, Synovial Mononuclear % 6.3, Synovial Path Comment May follow Micro: Microbiology 08/24/23 22:30 Fluid - Synovial (joint) Gram Stain - Preliminary Imaging Radiology Impression Knee X-Ray 08/24/23 18:05 IMPRESSION: There is a artery effusion. Electronically Signed: Farzad Bob DO at 18:58 EDT , Lower Extremity CT 08/24/23 19:13 IMPRESSION: Significant effusion. Correlate with MRI for internal derangement. Electronically Signed: Farzad Bob DO at 21:34 EDT , Assessment & Plan Assessment/Plan (1) Effusion, right knee: PLAN: 42 yr M with right knee effusion. No lab work - recommend getting WBC with diff, CRP and ESR. Cell count in the knee 16 k with left shift. Usually septic joint at least over 20k, and in most cases over 50k used for diagnosis. Initial gram stain negative. Can still be septic so recommend at the moment admit under medicine, consider starting IV antibiotics while awaiting for final cultures. May still be gout / CPPD as pathologist has not made final comment on the crystals (only the tech who works overnight). Rarely can be disseminated GC septic arthritis. Will monitor overnight and decide on formal I and D once I have more information, but made it clear he should not go home. Most likely an inflammatory picture, ED doc will also add lyme titers as patient was camping.
[2023-08-25] MEDS: Morphine 4 MG/ML Syringe IV (00:31)
[2023-08-25 00:41] LABS: Absolute Lymphocyte Count 1.58 X10^3/uL (0.83-4.51); Basophil# 0.02 X10^3/uL; Basophil% 0.3 % (0-1); Eosinophil# 0.26 X10^3/uL; Eosinophils% 3.7 % (0-5); Hematocrit 37.4 % (40-54); Hemoglobin 12.4 g/dL (13.0-16.5); Lymphocyte # 1.58 X10^3/ul (0.83-4.51); Lymphocyte % 22.7 % (19-41); Mean Corp Hgb Conc 33.2 g/dL (32-36); Mean Corpuscular Hgb 28.4 pg (27.0-32.0); Mean Corpuscular Volume 85.6 fL (80-94); Mean Platelet Vol. 9.8 fl (6.2-12.0); Monocyte# 1.01 X10^3/uL; Monocyte% 14.5 % (0-10); NRBC Flagged by Analyzer 0 % (0-5); Neutrophil # 4.03 X10^3/uL (2.7-7.7); Neutrophil % 57.8 % (47-70); Platelet Count 212 K/mm3 (150-450); RBC Distribution Width CV 12.6 % (11.6-14.6); RBC Distribution Width SD 38.8 fl (35.1-43.9); Red Blood Count 4.37 M/mm3 (4.6-6.2)
[2023-08-25 00:51] LABS: Erythrocyte Sedimentation Rate 29 mm/hr (0-20)
[2023-08-25 01:06] LABS: Anion Gap 7 (5-15); BUN 17 mg/dL (7-18); BUN/Creat Ratio 11.6 RATIO (10-20); Chloride 107 mmol/L (98-107); Creatinine, Serum 1.46 mg/dL (0.70-1.30); EST Glomerular Filtration Rate 57 mL/min (>60); Est Glom Filt Rate - Afr Amer 69 mL/min (>60); Glucose 225 mg/dL (74-106); Potassium 3.7 mmol/L (3.5-5.1); Sodium Level 139 mmol/L (136-145)
[2023-08-25] MEDS: Acetaminophen 325 MG Tablet 650 MG PO ×3 (01:58→20:57)
[2023-08-25] MEDS: 0.9% Normal Saline (1000mL) 1,000 ML 70 ML IV ×2 (01:58→13:05)
[2023-08-25] MEDS: Vancomycin HCl 2,000 MG in 0.9% Normal Saline (500mL Bag) 500 ML 250 MG IV (02:02)
--- NOTE | 2023-08-25 04:14 | PCM.RX.CS ---
Consult Antibiotic Management Pharmacy has been consulted to manage selected antibiotic: Vancomycin Type of Intervention Type of Consult: New start Labs Labs: Sodium 139 mmol/L (136-145) 08/25/23 00:25 Potassium 3.7 mmol/L (3.5-5.1) 08/25/23 00:25 Chloride 107 mmol/L (98-107) 08/25/23 00:25 Carbon Dioxide 25.0 mmol/L (21.0-32.0) 08/25/23 00:25 Anion Gap 7 (5-15) 08/25/23 00:25 BUN 17 mg/dL (7-18) 08/25/23 00:25 Creatinine 1.46 mg/dL (0.70-1.30) H 08/25/23 00:25 Est GFR (MDRD) Af Amer 69 mL/min (>60) 08/25/23 00:25 Est GFR (MDRD) Non-Af 57 mL/min (>60) L 08/25/23 00:25 BUN/Creatinine Ratio 11.6 RATIO (10-20) 08/25/23 00:25 Glucose 225 mg/dL (74-106) H 08/25/23 00:25 Microbiology Microbiology: Microbiology 08/24/23 22:30 Fluid - Synovial (joint) Gram Stain - Preliminary Dosing Weight Weight used for dosin.9 kg Estimated Creatinine Clearance Estimated Creatinine Clearance: 84.5 Goal Trough Goal Trough: 10-15 mcg/mL Pharmacy Plan for Drug Dosing Pharmacy Plan for Drug Dosing: Pharmacy Service will continue to monitor and adjust dosing as required. 2000 LOADING DOSE, 1250 Q12H TROUGH PRIOR TO 4TH DOSE Follow-Up Labs Follow-Up Labs: Trough: Vancomycin Date/Time Labs Ordered Labs to be done on [date and time ordered]: 08/25 @ 4590
[2023-08-25] MEDS: Morphine 2 MG/ML Syringe IV ×3 (04:50→22:07)
[2023-08-25] MEDS: Piperacil/Tazobactam 3.375 GM in 0.9% Normal Saline (50mL MB+) 50 ML IV ×3 (04:54→22:07)
[2023-08-25 06:17] LABS: Bedside Glucose 197 mg/dL (74-106)
[2023-08-25] MEDS: Insulin Lispro 100 UNIT/ML INSULN.PEN SC ×3 (06:59→22:15)
--- NOTE | 2023-08-25 07:29 | PN.ORTHO_ITS ---
Subjective Subjective 42-year-old man with a right knee pain. Started about 3 days ago was stepping up into his truck did not twist the knee or have any acute pain pop or other signs of giving way. Developed subsequent pain and swelling warmth to the knee no drainage. Never had this before. No fevers chills or feeling unwell no constitutional symptoms. Presented for progressive extreme pain to the right knee swelling and difficulty weightbearing. Objective Data Objective Data Vital Signs: Vital Signs Temp Pulse Resp BP Pulse Ox O2 Del Method 97.6 F L 66 16 166/111 H 96 Room Air 08/25/23 04:56 08/25/23 04:56 08/25/23 04:56 08/25/23 04:56 08/25/23 04:56 08/25/23 04:56 Oxygen Delivery Method Room Air Weight: 240 lb Body Mass Index (BMI) 32.5 Intake & Output: Intake and Output for Last 24 Hours 08/23/23 08/24/23 08/25/23 23:59 23:59 23:59 Intake Total 540 / 540 Balance 540 / 540 Lab / Micro Data Attestation: I reviewed the patient's lab results. 08/25/23 00:25 08/25/23 00:25 Labs: Laboratory Results - last 24 hr 08/24/23 22:30: Fluid Crystals See PATH REV, Fluid Crystal Source SYNOVIAL, Synovial Source RT KNEE, Synovial Color Yellow, Synovial Appearance Hazy, S ynovial WBC 16.6980 H, Synovial RBC 22 H, Synovial Tot Cell Ct 16.7220 H, Synov Polynuclear WBCs 17.039, Synov Mononuclear WBCs 1.135, Synovial Neutrophils 97 H , Synovial Monocytes 3, Synovial Polynuclear % 93.7, Synovial Mononuclear % 6.3, Synovial Path Comment May follow 08/25/23 00:25: WBC 7.0, RBC 4.37 L, Hgb 12.4 L, Hct 37.4 L, MCV 85.6, MCH 28.4, MCHC 33.2, RDW Std Deviation 38.8, RDW Coeff of Pippa 12.6, Plt Count 212, MPV 9.8, Immature Gran % (Auto) 1.000 H, Neut % (Auto) 57.8, Lymph % (Auto) 22.7, M amna % (Auto) 14.5 H, Eos % (Auto) 3.7, Baso % (Auto) 0.3, Absolute Neuts (auto) 4.0, Absolute Lymphs (auto) 1.58, Nucleated RBC % 0, ESR 29 H, Sodium 139, Potassium 3.7, Chloride 107, Carbon Dioxide 25.0, Anion Gap 7, BUN 17, C reatinine 1.46 H, Est GFR (MDRD) Af Amer 69, Est GFR (MDRD) Non-Af 57 L, BUN/Creatinine Ratio 11.6, Glucose 225 H, Calcium 9.0, C-React Prot Ext Range 42.70 H 08/25/23 05:59: POC Glucose 197 H Micro: Microbiology 08/24/23 22:30 Fluid - Synovial (joint) Gram Stain - Preliminary Radiography Diagnostic Testing: Radiology Impression Knee X-Ray 08/24/23 18:05 IMPRESSION: There is a artery effusion. Electronically Signed: Farzad Bob DO at 18:58 EDT , Lower Extremity CT 08/24/23 19:13 IMPRESSION: Significant effusion. Correlate with MRI for internal derangement. Electronically Signed: Farzad Bob DO at 21:34 EDT , I independently reviewed the imaging. Concur with radiologist report. Physical Exam Const alert, oriented x3, no apparent distress and well nourished Extremity normal capillary refill Extremity Narrative: No pain at the hip ankle foot or any other joints. The knee has a moderate sized effusion. There is mild warmth there is no obvious redness. I removed the bandage over the aspiration site superolateral approach that looks normal. He is able to do a straight leg raise test neurovascular intact strong dorsalis pedis pulse able to wiggle the toes dorsiflex and plantarflex the foot with normal sensation in the foot. Active range of motion is from about 10 to 20 degrees passively about the same with the high levels of pain with any sort of attempted range of motion of the knee. Pain to diffuse palpation about the knee especially at the proximal patellar site. No obvious defect of the quadriceps or patellar tendon Assessment & Plan Assessment/Plan (1) Acute pain of right knee: PLAN: 42-year-old man with 3 days onset right knee pain without obvious injury with a cell count of 16,000 with a left shift 97% neutrophils. His white blood cell count although that is normal at 7 his ESR and CRP are quite elevated. Stat gm stain negative, but final cultures take 3-5 days. Prelim crystals negative, though SA can exist concomitantly with gout. He has not had any fevers but no injury either I think there is a low-moderate suspicion here for a septic arthritis and even if the suspicion is relatively low in my opinion the safest course of action would be to perform urgent irrigation and debridement arthroscopically of the knee. The damage of leaving an untreated septic arthritis is high I explained this to the patient. In addition I explained the surgical risks like infection pain stiffness bleeding damage to other structures neurovascular injury VTE and other risks associated with surgery that being said I think the surgery is a less risky than continued watchful waiting and nonoperative management. He understands I marked the right knee signed the consent Form for surgery the patient is NPO. Already admitted under the hospitalist and started IV vancomycin. I think this is reasonable as we already have cultures from the aspiration. I talked to the surgical staff including Dr. Noriega and I have been given his time this morning for 9:30 AM. Patient understands no further questions or concerns signed the consent form for right knee arthroscopy debridement irrigation and cultures. Pros and cons risks and benefits were discussed with the patient including but not limited to infection, pain, stiffness, bleeding, damage to surrounding structures, neurovascular injury, recurrence or retear, failure or wear of hardware or fixation, instability, fracture, deep vein thrombosis and pulmonary embolism, anesthetic risks, , patient dissatisfaction, need for further surgery and other risks. Patient understood and wished to proceed with surgery, and signed the informed consent documentation. (2) Effusion, right knee:
[2023-08-25 08:30] LABS: Erythrocyte Sedimentation Rate 24 mm/hr (0-20)
[2023-08-25 08:36] LABS: Absolute Lymphocyte Count 1.32 X10^3/uL (0.83-4.51); Absolute Neutrophil Count 3.3 X10^3/uL (2.0-7.7); Basophil# 0.03 X10^3/uL; Basophil% 0.5 % (0-1); Eosinophil# 0.21 X10^3/uL; Eosinophils% 3.7 % (0-5); Hematocrit 36.7 % (40-54); Lymphocyte # 1.32 X10^3/ul (0.83-4.51); Lymphocyte % 23.3 % (19-41); Mean Corp Hgb Conc 32.7 g/dL (32-36); Mean Corpuscular Hgb 28.6 pg (27.0-32.0); Mean Corpuscular Volume 87.4 fL (80-94); Mean Platelet Vol. 9.7 fl (6.2-12.0); Monocyte# 0.75 X10^3/uL; Monocyte% 13.2 % (0-10); NRBC Flagged by Analyzer 0 % (0-5); Neutrophil # 3.34 X10^3/uL (2.7-7.7); Neutrophil % 58.9 % (47-70); Platelet Count 189 K/mm3 (150-450); RBC Distribution Width CV 12.6 % (11.6-14.6); RBC Distribution Width SD 39.8 fl (35.1-43.9); White Blood Count 5.7 K/mm3 (4.4-11.0)
[2023-08-25 08:37] LABS: Hemoglobin A1c 12.4 % (3.8-5.6)
[2023-08-25 08:54] LABS: ALB/GLOB Ratio 0.9 RATIO (0.9-2.4); AST(SGOT) 13 U/L (15-37); Alanine Aminotransfer ALT/SGPT 26 U/L (16-61); Alkaline Phosphatase 92 U/L (45-117); Anion Gap 5 (5-15); BUN 17 mg/dL (7-18); BUN/Creat Ratio 12.8 RATIO (10-20); Calcium,Total 8.3 mg/dL (8.5-10.1); Chloride 110 mmol/L (98-107); Creatinine, Serum 1.33 mg/dL (0.70-1.30); EST Glomerular Filtration Rate 63 mL/min (>60); Est Glom Filt Rate - Afr Amer 76 mL/min (>60); Estimated Creatinine Clearance 94.09 ml/min; Globulin 3.4 g/dL (2.2-4.2); Glucose 222 mg/dL (74-106); Potassium 3.9 mmol/L (3.5-5.1); Protein, Total 6.4 g/dL (6.4-8.2); Sodium Level 139 mmol/L (136-145); Thyroid Stim Hormone (TSH) 1.12 uIU/mL (0.358-3.74)
[2023-08-25] MEDS: 0.9% Normal Saline (1000mL) 1,000 ML 15 ML IV (08:57)
--- NOTE | 2023-08-25 09:08 | PCM.PRE.AN2 ---
ASA Classification* ASA Classification ASA Classification: 3 and E Assessment & Plan Anesthesia* Anesthesia Assessment Anesthesia Assessment: Discussed sedation and/or anesthesia options, risks, benefits, and alternatives with patient/parents/legal guardian/POA. Questions invited. The patient/parents/legal guardian/POA seems to understand and agrees to proceed with anesthesia plan. Reviewed the physical assessment, medical history, allergy history and patient home medications list prior to surgery/procedure/anesthetic and documented any changes. Performed airway and anesthesia risk assessments. Anesthesia Type Anesthesia Type: General History Source History Obtained from:: Patient and Chart Anesthesia Focused Assessment* Temperature: 98.3 F Pulse Rate: 63 Blood Pressure: 158/92 Respiratory Rate: 18 Pulse Ox: 95 Oxygen Delivery Method: Room Air Airway Assessment Mouth opens: >3 cm Mallampati Score: III Teeth Condition: Caps/Crowns ([place] on #8 tooth is tight) Neck Range of motion (ROM): Full ROM Pertinent Findings EKG Pertinent Findings:: July 16, 2023. Normal sinus rhythm moderate criteria for left ventricular hypertrophy. Nonspecific T wave abnormality. Stress Test Pertinent Findings:: May 04, 2023. Ejection fraction is 49%. There is a area of mild mid anterior ischemia. See follow-up catheterization. ECHO Pertinent Findings:: June 12, 2023. Ejection fraction 60%. Pulmonary artery systolic pressure was 35 mmHg. Cath Results Pertinent Findings:: May 25, 2023. Ejection fraction is 60%. Ramus with a distal side branch had 70 to 80% stenosis. Proximal right coronary artery with 50% stenosis. Focused Labs Anesthesia Preop lab: CBC WBC 5.7 K/mm3 (4.4-11.0) 08/25/23 08:04 RBC 4.20 M/mm3 (4.6-6.2) L 08/25/23 08:04 Hgb 12.0 g/dL (13.0-16.5) L 08/25/23 08:04 Hct 36.7 % (40-54) L 08/25/23 08:04 Plt Count 189 K/mm3 (150-450) 08/25/23 08:04 CHEMISTRY Potassium 3.9 mmol/L (3.5-5.1) 08/25/23 08:04 Sodium 139 mmol/L (136-145) 08/25/23 08:04 Magnesium 2.0 mg/dL (1.6-2.6) 08/25/23 08:04 Phosphorus 3.0 mg/dL (2.5-4.9) 08/25/23 08:04 BUN 17 mg/dL (7-18) 08/25/23 08:04 Creatinine 1.33 mg/dL (0.70-1.30) H 08/25/23 08:04 Glucose 222 mg/dL (74-106) H 08/25/23 08:04 POC Glucose 197 mg/dL (74-106) H 08/25/23 05:59 TSH 1.12 uIU/mL (0.358-3.74) 08/25/23 08:04 COAG Pre-Assessment Diagnosis/Proposed Procedure Planned Operative Procedure(s): Right knee arthroscopy, debridement and cultures Anesthesia History Anesthesia History - security tech: Anesthesia History - security tech Hx Hospitalization Any Problems With Anesthesia No 08/25/23 07:37 Cholinesterase deficiency No 08/25/23 07:37 You/Your Family Experience No 08/25/23 07:37 fever (hyperthermia) with Relationship Recent Exposure to Contagious No 08/25/23 07:37 Disease Does patient have nerve No 08/25/23 07:37 stimulator Patient instructed to have No 08/25/23 07:37 device shut off --Does patient have Pacemaker No 08/25/23 07:37 or ICD? When Was Last Pacemaker Check QUESTION #4 FULL TEXT: You/Your Family Experience fever (hyperthermia) with Anesthesia Last Oral Intake Last Oral intake: Last Oral Intake NPO since 00:00 08/25/23 07:37 Meds taken in AM with sips of No 08/25/23 07:37 water? Meds patient instructed to take am of surgery PONV PONV - security tech: PONV - security tech Female HX of Motion Sickness HX of N/V After Surgery Non-Smoker Duration of Surgery greater than 60 minutes Number of Risk Factors PONV Score Height & Weight Height & Weight: Anesthesia: Height & Weight Height 6 ft 08/25/23 07:37 Weight: 108.862 kg 08/25/23 07:37 Body Mass Index (BMI) 32.5 08/25/23 07:37 Respiratory Assessment Respiratory Assessment - security tech: Respiratory Tract Infection Hx - security tech Hx Respiratory Tract Infection No 08/25/23 07:37 STOP Sleep Apnea STOP Sleep Apnea - security tech: STOP Sleep Apnea - security tech Hx Hypertension Yes 08/25/23 01:33 Hx Sleep Apnea No 08/25/23 01:33 CPAP BIPAP Do you snore loudly (louder Yes 08/25/23 01:33 than talking or can be heard Do you often feel tired/ No 08/25/23 01:33 fatigued/ sleepy during daytime? Has anyone observed you stop Yes 08/25/23 01:33 breathing during sleep? STOP Results Positive 08/25/23 01:33 QUESTION #5 FULL TEXT : Do you snore loudly (louder than talking or can be heard through closed doors)? Tobacco Use History Tobacco Use History - security tech: Tobacco Use History - security tech Tobacco Use Smoking Status Never smoker 08/25/23 01:33 Hx Tobacco Use No 08/25/23 01:33 Years Smoking Packs Smoked per Day Smoking Cessation Date was within the last 15 years Hx Smoking Cessation Date Hx Smoking Cessation Counseling Hematologic Medial History Hematologic Hx - security tech: Hematologic Medical Hx - biological sciences instructor Hx of Blood Transfusion No 08/25/23 01:33 Hx of Transfusion in last 3 No 08/25/23 01:33 Months Date of Last Transfusion (if within last 3 months) Ever experience any problems No 08/25/23 01:33 with transfusion(s)? Specify any problems Hx of Preganancy in last 3 N/A 08/25/23 01:33 Months Nurse Filling Out Transfusion CSCHLATTE 08/25/23 01:33 & Questions: Date: 08/25/23 08/25/23 01:33 Time: 01:35 08/25/23 01:33 Patient unable to answer at this time (ie. confused, unrespo /Reproduction History /Reproductive History - security tech: /Reproductive Hx- security tech Hx Now Gestational Age (in weeks): EDC: Hx Hx Para Hx Section SAB Active Medications Active Medications: Current Medications Generic Name Dose Route Start Last Admin Trade Name Freq PRN Reason Stop Dose Admin Acetaminophen 650 mg 08/25/23 01:24 08/25/23 01:58 Acetaminophen 325 Mg Tablet PO 650 mg Q6H PRN PRN Administration Pain 1-5/10 Or Fever>100.7 Al Hydroxide/Mg Hydroxide 30 ml 08/25/23 01:24 Mag Hydrox/Al Hydrox/Simeth 30 Ml Udc PO Q6H PRN PRN Gastric Burning Allopurinol 100 mg 08/25/23 10:00 08/25/23 07:37 Allopurinol 100 Mg Tablet PO Not Given DAILY SHANTE Amlodipine Besylate 10 mg 08/25/23 10:00 08/25/23 07:37 Amlodipine 10 Mg Tablet PO Not Given DAILY SHANTE Protocol Atorvastatin Calcium 40 mg 08/25/23 22:00 Atorvastatin Calcium 40 Mg Tablet PO QHS SHANTE Hydralazine HCl 10 mg 08/25/23 01:24 Hydralazine 20 Mg/Ml Vial IV Q6H PRN PRN SBP GREATER THAN 160 Protocol Sodium Chloride 1,000 mls @ 70 mls/hr 08/25/23 01:01 08/25/23 01:58 IV 70 mls/hr .[id number] SHANTE Administration Vancomycin IV-PHARMACY TO DOSE 500 mls @ 250 mls/hr 08/25/23 01:24 1 each/ Sodium Chloride IV X1 PRN Rx to Dose Protocol Piperacillin Sod/Tazobactam 50 mls @ 12.5 mls/hr 08/25/23 01:45 08/25/23 04:54 Sod 3.375 gm/ Sodium Chloride IV 12.5 mls/hr Q8 SHANTE Administration Sodium Chloride 250 mls @ 15 mls/hr 08/25/23 01:25 IV .[id number] PRN Saline Flush Vancomycin HCl 1,250 mg/ 275 mls @ 167 mls/hr 08/25/23 14:00 Sodium Chloride IV Q12H SHANTE Sodium Chloride 1,000 mls @ 15 mls/hr 08/25/23 09:00 08/25/23 08:57 IV 15 mls/hr .Q48H SHANTE Administration Insulin Glargine 20 unit 08/25/23 10:00 08/25/23 07:37 Insulin Glargine-Yfgn 100 Unit/Ml Pen SC Not Given DAILY SHANTE Insulin Human Lispro 0 unit 08/25/23 06:50 08/25/23 06:59 Insulin Lispro 100 Unit/Ml Insuln.Pen SC 1 unit Q6 SHANTE Administration Protocol Magnesium Hydroxide 30 ml 08/25/23 01:24 Magnesium Hydroxide 30 Ml Udc PO DAILY PRN PRN Constipation Melatonin 3 mg 08/25/23 01:24 Melatonin 3 Mg Tablet PO QHS PRN PRN INSOMNIA Metoprolol Succinate 50 mg 08/25/23 10:00 08/25/23 07:37 Metoprolol(Xl)Succ 50 Mg Tablet PO Not Given DAILY [facility] Protocol Morphine Sulfate 2 mg 08/25/23 01:24 08/25/23 04:50 Morphine 2 Mg/Ml Syringe IV 2 mg Q4H PRN PRN Administration Pain Score 6-10 Multivitamins 1 tablet 08/25/23 08:00 08/25/23 07:36 Multivitamins,Therapeutic [facility] Ondans[facility] 4 mg 08/25/23 01:24 Ondansetron 4 Mg/2 Ml Vial IV Q8H PRN PRN NAUSEA/VOMITING Sodium Chloride 10 - 40 ml 08/25/23 01:25 0.9% Saline Lock 10 Ml Syringe IV UD PRN SALINE FLUSH Vancomycin Protocol 1 lab 08/26/23 11:30 Vancomycin Trough/Random Due 08/26/23 15:30 DAILY [facility] Medical History Diabetes Effusion, right knee Abnormal stress test Essential (primary) hypertension SOB (shortness of breath) Home Medications ?Medication ?Instructions ?Recorded ?Last Taken ?Type guaifenesin 600 mg tablet, 600 mg PO Q12H PRN congestion 05/06/23 Unknown History extended release 12 hr (Mucinex) multivitamin 1 tab PO DAILY supplement 05/06/23 07/16/23 08:00 History amlodipine 10 mg tablet 10 mg PO DAILY blood pressure #60 05/13/23 07/15/23 22:00 Rx tabs aspirin 81 mg tablet,delayed 81 mg PO QDAY heart health #60 tabs 05/13/23 07/15/23 22:00 Rx release (Adult Low Dose Aspirin) atorvastatin 40 mg tablet (Lipitor) 40 mg PO DAILY high cholesterol 05/25/23 07/15/23 22:00 Rx #90 tabs metoprolol succinate 50 mg 50 mg PO DAILY heart/blood 05/25/23 07/16/23 08:00 Rx tablet,extended release 24 hr pressure #60 tabs (Toprol XL) allopurinol 100 mg tablet 100 mg PO DAILY gout 07/16/23 07/16/23 08:00 History pen needle, diabetic 29 gauge x #100 ea 07/17/23 Unknown Rx 1/2 (Pen Needle) clonidine HCl 0.1 mg tablet 0.1 mg PO TID 08/25/23 Unknown History insulin glargine 100 unit/mL (3 50 unit subcut DAILY 08/25/23 Unknown History mL) subcutaneous pen (Lantus Solostar U-100 Insulin) Allergy/AdvReac Type Severity Reaction Status Date / Time No Known Allergies Allergy Verified 05/25/23 15:40 Social History household members: significant other housing: house Smoking Status: Never smoker alcohol intake: never Review of Systems (Anesthesia) ROS Narrative System reviewed and no additional complaints, except as documented.
[2023-08-25] MEDS: Metoprolol(XL)Succ 50 MG Tablet PO (09:50)
[2023-08-25] MEDS: cloNIDine HCl 0.1 MG Tablet PO (09:50)
[2023-08-25] MEDS: Epinephrine (1 mg/ml) 1 MG/ML VIAL (10:30)
[2023-08-25] MEDS: Bupivacaine 0.25% 30 ML Vial (10:38)
--- NOTE | 2023-08-25 10:45 | OP.PCM_ITS ---
Problems Associated Problem List Diagnoses (1) Acute pain of right knee: (2) Effusion, right knee: Report of Operation Date of Procedure: 08/25/23 Pre-Operative Diagnosis: R knee effusion, possible septic arthritis Post-Operative Diagnosis: same Surgery/Procedure Performed:: Right knee arthroscopy, I and D, cultures Surgeon: Claus Ferreira Type of Anesthesia: General and Local Anesthesiologist: Santos Fowler Estimated Blood Loss (mL): 25 Description of Procedure: Patient brought to the operating room theater. Placed supine on the table. Vancomycin was running and just finished. All bony prominences padded. SCD on the nonoperative leg. General anesthesia induced. Stress positioner to the patient's right side. 34 inch tourniquet applied to the right thigh appropriately padded. Lower extremity prepped and draped in usual sterile fashion allowing over 3 minutes drying time prior to draping. Preoperative timeout performed to confirm the site patient and the surgery. Began by using a 18-gauge needle with a large syringe to aspirate about 40 cc of straw-colored fluid from the knee. SM approach. I sent this for cultures. I elevate the limb inflated the tourniquet to 250 mmHg. The standard anterolateral and anteromedial arthroscopy portals. There was a moderate amount of synovitis. I completed a synovectomy in all 3 compartments. There was a longitudinal full-thickness cartilage fissure at the mid trochlea undersurface the patella and the rest of the femoral condyles the cartilage appeared normal. There was some thicker material in the suprapatellar pouch that I debrided. I also used an accessory superior medial portal. I removed some synovitis from around the ACL and PCL which appeared normal, synovectomy all 3 compartments. The medial lateral meniscus appeared normal stable to probing. Some mild signs of arthritis at the medial femoral condyle condyle grade 1 only otherwise normal throughout the knee other than findings previously described. There was some areas at the femoral condyle as well of calcification deposits I gently debrided the areas took arthroscopy pictures throughout saved them onto the system. Case terminated knee thoroughly irrigated with 6 L of normal saline. Tourniquet let down hemostasis achieved. Skin cleaned with wet dry dressing. 10 cc of quarter percent bupivacaine instilled in and around the incision sites. Steri- Strips Adaptic 4 x 4 gauze ABD dressing with loosely wrapped Marty bandage placed on the knee. Patient woken up from a general anesthetic transferred off the operating table and taken postanesthetic care unit in stable condition. All sponge needle instrument counts were correct no complications plan for the patient readmitted under the hospitalist service continue antibiotics until final cultures are back. Overall my impression is that this could still be consistent with early septic arthritis could also be a pseudogout given some mild calcifications there. Admit him to the hospital weightbearing and range of motion as tolerated rest ice and elevation and hospitalist to decide on postoperative anticoagulation. cpt [id number]? Complications none Admit VTE Documentation VTE Present on Admission: No VTE Mechan Device Prophylaxis: SCD's VTE Pharm Prophylaxis ordered?: No Reason prophylaxis not ordered:: Treatment Not Indicated (hospitalist to decide) Procedures Musculoskeletal [id number]: Other Procedure See Report
--- NOTE | 2023-08-25 10:56 | PCM.POST.ANE ---
Anesthesia: Postop Eval I Current Vital Signs Temperature: 97.2 F Pulse Rate: 73 Blood Pressure: 138/83 Respiratory Rate: 20 Pulse Ox: 94 (2L O2 nasal cannula) Assessment Airway patent: Yes Spontaneous unlabored respirations: Yes nausea: No Vomiting: No Anesthesia Complication: No Fluid Hydration Crystalloid volume administer (ml): 1,000 Total IV fluid infused: 1,000 Progress Note Anesthesia document: Postop Eval 1 completed: Yes
[2023-08-25 11:31] LABS: Bedside Glucose 140 mg/dL (74-106)
[2023-08-25 11:45] LABS: Pathologist Comment Reviewed
--- NOTE | 2023-08-25 13:00 | CASEMGMT ---
RN CM Assessment Face to Face with patient for initial transition planning/care coordination assessment. Pt recently returned from surgery and is sleeping. Pt SO at bedside and willing to answer this RN CM questions for assessment. Care providers, pharmacy, and demographics verified. Admitting dx: Massive Rt Knee Effusion with severe pain PCP: Zachray Leal Specialists: Shahid (Nephro)AMRIT Preferred [facility]acy: [facility] Insurance: [employer] Prescription Benefit: Yes LNOK: Ambreen Stallworth (SO) Living Arrangements: Pt lives with his SO and the SO son (Age 22) in a two story home with 3 steps to enter with a BM and a FFSU ADLs/IADLs: Ind RN MEDICATION Transportation: Self, SO DME: BGM and supplies, BP Monitor, Crutches, Grab bars. CM to follow for FWW needs HHC/SNF: Denies history Plan: Anticipate eventual DC home. Pt recently returned from surgery. PT eval is pending. CM to follow once the pt is more awake as well as therapy recommendations to decipher the safest discharge plan moving forward. Stephan Philip RN, CM
[2023-08-25] MEDS: Vancomycin HCl 1,250 MG in 0.9% Normal Saline (250mL Bag) 250 ML 167 MG IV (13:06)
--- NOTE | 2023-08-25 13:23 | POSTOPAN2_ITS ---
Anesthesia Postop Eval I Sum Postop Eval Completion status Anesthesia document: Postop Eval 1 completed: Yes Anesthesia Postop Eval I Summary Anesthesia Postop Eval I Summary: Anesthesia Postop Eval I: Assessment Summary Airway patent Yes 08/25/23 10:56 [email or web address] Spontaneous unlabored Yes 08/25/23 10:56 SLP.CSIR respirations Mental status nausea No 08/25/23 10:56 SLP.CSIR Vomiting No 08/25/23 10:56 [email or web address].CSIR Anesthesia Postop Eval I: Fluid Summary Crystalloid volume administer 1,000 08/25/23 10:56 SLP.CSIR (ml) Colloids volume administered ( ml) Blood Product volume administered (ml) Total IV fluid infused 1,000 08/25/23 10:56 [email or web address] Anesthesia Postop Eval I: Summary Notes Anesthesia Complication No 08/25/23 10:56 [email or web address].CSIR Anesthesia Complication Comment: Post-operative progress note Anesthesia: Postop Eval II Evaluation Mental status: Awake and Calm Pain Level: 0 nausea: No Vomiting: No Complications Anesthesia Complication: No
--- NOTE | 2023-08-25 13:23 | PCM.POSTANE2 ---
Anesthesia Postop Eval I Sum Postop Eval Completion status Anesthesia document: Postop Eval 1 completed: Yes Anesthesia Postop Eval I Summary Anesthesia Postop Eval I Summary: Anesthesia Postop Eval I: Assessment Summary Airway patent Yes 08/25/23 10:56 ROAD DESIGN [email or web address] Spontaneous unlabored Yes 08/25/23 10:56 RO[address] DESIGN [email or web address] respirations Mental status nausea No 08/25/23 10:56 [address] DESIGN [email or web address] Vomiting No 08/25/23 10:56 [address] DESIGN [email or web address] Anesthesia Postop Eval I: Fluid Summary Crystalloid volume administer 1,000 08/25/23 10:56 [address] DESIGN [email or web address].CSIR (ml) Colloids volume administered ( ml) Blood Product volume administered (ml) Total IV fluid infused 1,000 08/25/23 10:56 [address] DESIGN [email or web address].CSIR Anesthesia Postop Eval I: Summary Notes Anesthesia Complication No 08/25/23 10:56 [address] DESIGN [email or web address].CSIR Anesthesia Complication Comment: Post-operative progress note Anesthesia: Postop Eval II Evaluation Mental status: Awake and Calm Pain Level: 0 nausea: No Vomiting: No Complications Anesthesia Complication: No
--- NOTE | 2023-08-25 13:32 | PCM.HOSP.N ---
Hospitalist Note Given there was suspicion for septic joint although lower on differential patient was taken for washout, intraoperative cultures obtained, continue IV broad-spectrum antibiotics and await cultures. Patient seen after surgery and doing well, family member at bedside, updates given.
[2023-08-25] MEDS: 0.9% Normal Saline (250mL Bag) 250 ML 15 ML IV (14:54)
[2023-08-25] MEDS: 0.9% Saline Lock 10 ML Syringe IV (17:02)
[2023-08-25 17:17] LABS: Bedside Glucose 177 mg/dL (74-106)
[2023-08-25] MEDS: Lactobacillis Acidophilus 2 CAP PO (22:08)
[2023-08-25] MEDS: Atorvastatin Calcium 40 MG Tablet PO (22:08)
[2023-08-25 23:32] LABS: Bedside Glucose 223 mg/dL (74-106)
[2023-08-26] VITALS (9 sets, daily range): BP systolic 148–182; BP diastolic 82–108; PULSE 71–89; RESP 16–18; TEMP 36.6–37.2; O2SAT 94–99; BMI 33.3
[2023-08-26] MEDS: Vancomycin HCl 1,250 MG in 0.9% Normal Saline (250mL Bag) 250 ML 167 MG IV ×2 (02:29→15:57)
[2023-08-26] MEDS: Acetaminophen 325 MG Tablet 650 MG PO (04:23)
[2023-08-26] MEDS: Piperacil/Tazobactam 3.375 GM in 0.9% Normal Saline (50mL MB+) 50 ML IV (05:58)
[2023-08-26] MEDS: Insulin Lispro 100 UNIT/ML INSULN.PEN SC ×4 (06:25→21:14)
[2023-08-26 07:35] LABS: Absolute Lymphocyte Count 1.32 X10^3/uL (0.83-4.51); Absolute Neutrophil Count 4.4 X10^3/uL (2.0-7.7); Basophil# 0.03 X10^3/uL; Basophil% 0.4 % (0-1); Eosinophil# 0.21 X10^3/uL; Hematocrit 34.6 % (40-54); Hemoglobin 11.1 g/dL (13.0-16.5); Lymphocyte # 1.32 X10^3/ul (0.83-4.51); Lymphocyte % 19.1 % (19-41); Mean Corp Hgb Conc 32.1 g/dL (32-36); Mean Corpuscular Volume 87.2 fL (80-94); Mean Platelet Vol. 9.9 fl (6.2-12.0); Monocyte# 0.92 X10^3/uL; Monocyte% 13.3 % (0-10); NRBC Flagged by Analyzer 0 % (0-5); Neutrophil # 4.41 X10^3/uL (2.7-7.7); Neutrophil % 63.8 % (47-70); Platelet Count 198 K/mm3 (150-450); RBC Distribution Width CV 12.8 % (11.6-14.6); RBC Distribution Width SD 39.9 fl (35.1-43.9); Red Blood Count 3.97 M/mm3 (4.6-6.2); White Blood Count 6.9 K/mm3 (4.4-11.0)
[2023-08-26 07:40] LABS: Bedside Glucose 196 mg/dL (74-106)
[2023-08-26 08:11] LABS: ALB/GLOB Ratio 0.9 RATIO (0.9-2.4); AST(SGOT) 13 U/L (15-37); Alanine Aminotransfer ALT/SGPT 26 U/L (16-61); Albumin, Serum 2.9 g/dL (3.2-5.0); Alkaline Phosphatase 88 U/L (45-117); Anion Gap 4 (5-15); BUN 15 mg/dL (7-18); BUN/Creat Ratio 11.5 RATIO (10-20); Calcium,Total 8.2 mg/dL (8.5-10.1); Chloride 109 mmol/L (98-107); Creatinine, Serum 1.31 mg/dL (0.70-1.30); EST Glomerular Filtration Rate 64 mL/min (>60); Est Glom Filt Rate - Afr Amer 78 mL/min (>60); Estimated Creatinine Clearance 96.69 ml/min; Globulin 3.3 g/dL (2.2-4.2); Glucose 208 mg/dL (74-106); Potassium 3.6 mmol/L (3.5-5.1); Protein, Total 6.2 g/dL (6.4-8.2); Sodium Level 139 mmol/L (136-145)
[2023-08-26] MEDS: Morphine 2 MG/ML Syringe IV ×2 (08:23→11:31)
[2023-08-26] MEDS: 0.9% Saline Lock 10 ML Syringe IV ×2 (08:23→11:31)
[2023-08-26] MEDS: amLODIPine 10 MG Tablet PO (08:30)
[2023-08-26] MEDS: Insulin Glargine-YFGN 100 UNIT/ML Pen 20 UNIT SC (08:30)
[2023-08-26] MEDS: Allopurinol 100 MG Tablet PO (08:30)
[2023-08-26] MEDS: Metoprolol(XL)Succ 50 MG Tablet PO (08:30)
[2023-08-26] MEDS: Lactobacillis Acidophilus 2 CAP PO ×2 (08:30→21:01)
[2023-08-26] MEDS: Multivitamins,Therapeutic Tablet 1 TABLET PO (08:30)
--- NOTE | 2023-08-26 08:48 | PCM.PN.ORT ---
Subjective Subjective POD 1 right knee I and D scope for possible SA, some moderate pain to the knee this AM, otherwise no concerns. Objective Data Objective Data Vital Signs: Vital Signs Temp Pulse Resp BP Pulse Ox O2 Del Method O2 Flow Rate 98 F 74 18 182/102 H 98 Room Air 2 08/26/23 08:22 08/26/23 08:30 08/26/23 08:22 08/26/23 08:22 08/26/23 08:22 08/26/23 08:22 08/25/23 15:37 Oxygen Flow Rate (L/min) 2 Oxygen Delivery Method Room Air Weight: 246 lb 0.574 oz Body Mass Index (BMI) 33.3 Intake & Output: Intake and Output for Last 24 Hours 08/24/23 08/25/23 08/26/23 23:59 23:59 23:59 Intake Total 1749.59 / 2588.92 1364.33 / 1364.33 Output Total 700 / 700 950 / 950 Balance 1049.59 / 1888.92 414.33 / 414.33 Lab / Micro Data Attestation: I reviewed the patient's lab results. 08/26/23 06:57 08/26/23 06:57 Labs: Laboratory Results - last 24 hr 08/24/23 22:30: Synovial Path Comment Reviewed 08/25/23 08:04: Sodium 139, Potassium 3.9, Chloride 110 H, Carbon Dioxide 24.0, Anion Gap 5, BUN 17, Creatinine 1.33 H, Estim Creat Clear Calc 94.09, Est GFR (MDRD) Af Amer 76, Est GFR (MDRD) Non-Af 63, BUN/Creatinine Ratio 12.8, Glucose 222 H, Calcium 8.3 L, Phosphorus 3.0, Magnesium 2.0, Total Bilirubin 0.50, AST 13 L, ALT 26, Alkaline Phosphatase 92, C-React Prot Ext Range 43.40 H, Total Protein 6.4, Albumin 3.0 L, Globulin 3.4, Albumin/Globulin Ratio 0.9, TSH 1.12 08/25/23 11:13: POC Glucose 140 H 08/25/23 16:50: POC Glucose 177 H 08/25/23 22:14: POC Glucose 223 H 08/26/23 06:24: POC Glucose 196 H 08/26/23 06:57: WBC 6.9, RBC 3.97 L, Hgb 11.1 L, Hct 34.6 L, MCV 87.2, MCH 28.0, MCHC 32.1, RDW Std Deviation 39.9, RDW Coeff of Pippa 12.8, Plt Count 198, MPV 9.9, Immature Gran % (Auto) 0.400, Neut % (Auto) 63.8, Lymph % (Auto) 19.1, [place] % (Auto) 13.3 H, Eos % (Auto) 3.0, Baso % (Auto) 0.4, Absolute Neuts (auto) 4.4, Absolute Lymphs (auto) 1.32, Nucleated RBC % 0, Sodium 139, Potassium 3.6, Chloride 109 H, Carbon Dioxide 26.0, Anion Gap 4 L, BUN 15, Creatinine 1.31 H, Estim Creat Clear Calc 96.69, Est GFR (MDRD) Af Amer 78, Est GFR (MDRD) Non-Af 64, BUN/Creatinine Ratio 11.5, Glucose 208 H, Calcium 8.2 L, Total Bilirubin 0.40, AST 13 L, ALT 26, Alkaline Phosphatase 88, Total Protein 6.2 L, Albumin 2.9 L, Globulin 3.3, Albumin/Globulin Ratio 0.9 Micro: Microbiology 08/24/23 22:30 Fluid - Synovial (joint) Gram Stain - Final gm stain 1+ wbc neg otherwise Physical Exam Const alert, oriented x3 and no apparent distress Extremity normal capillary refill Extremity Narrative: right knee moderate swelling, incisions steri strips in place, nvi to the foot, good dp pulse, normal sens dorsum and plantar, wiggles toes and ankle. Assessment & Plan Assessment/Plan (1) Acute pain of right knee: PLAN: 42 yr M with right knee effusion, possible SA versus gout or other. Still waiting on final report for crystals. Would appreciate if hospitalist could have ID assess the patient as well. Still waiting on lyme tests. May be reasonable to step down abx if ID agrees since gm stain negative, no growth yet and source control achieved. Will follow while in hospital. WBAT. (2) Effusion, right knee:
[2023-08-26] MEDS: cloNIDine HCl 0.1 MG Tablet 0.05 MG PO ×2 (09:48→14:12)
[2023-08-26 11:55] LABS: Bedside Glucose 217 mg/dL (74-106)
--- NOTE | 2023-08-26 13:16 | CON.PCM.ID_ITS ---
Assessment & Plan Assessment/Plan (1) Septic arthritis: PLAN: Taken to OR 08/25/[address] Ferreira for I&D. Cxs pending. On vanc/zosyn. Will narrow to vanc/ceftriaxone. Lyme pending. Crystals neg. Will follow, thank you HPI Consult Data Date of Consult: 08/26/23 HPI Narrative Reason for Consultation: septic arthritis HPI Narrative: JUSTINE RUANO, is a 42 M with h/o DM, htn, presented 08/24 with three days progressive R knee pain. Had new onset pain while climbing into his truck. No recent cuts, infections, bug bites. No fever or chills. Had worsening redness, pain, swelling. Came to ED, aspiration done, admitted on vanc/zosyn, taken to OR 08/[address] Ferreira for I&D. Full ROS performed and neg except as noted above. [facility] Medical History Diabetes Effusion, right knee Abnormal stress test Essential (primary) hypertension SOB (shortness of breath) Home Medications ?Medication ?Instructions ?Recorded ?Last Taken ?Type guaifenesin 600 mg tablet, 600 mg PO Q12H PRN congestion 05/06/23 Unknown History extended release 12 hr (Mucinex) multivitamin 1 tab PO DAILY supplement 05/06/23 07/16/23 08:00 History amlodipine 10 mg tablet 10 mg PO DAILY blood pressure #60 05/13/23 07/15/23 22:00 Rx tabs aspirin 81 mg tablet,delayed 81 mg PO QDAY heart health #60 tabs 05/13/23 07/15/23 22:00 Rx release (Adult Low Dose Aspirin) atorvastatin 40 mg tablet (Lipitor) 40 mg PO DAILY high cholesterol 05/25/23 07/15/23 22:00 Rx #90 tabs metoprolol succinate 50 mg 50 mg PO DAILY heart/blood 05/25/23 07/16/23 08:00 Rx tablet,extended release 24 hr pressure #60 tabs (Toprol XL) allopurinol 100 mg tablet 100 mg PO DAILY gout 07/16/23 07/16/23 08:00 History pen needle, diabetic 29 gauge x #100 ea 07/17/23 Unknown Rx 1/2 (Pen Needle) clonidine HCl 0.1 mg tablet 0.1 mg PO TID 08/25/23 Unknown History insulin glargine 100 unit/mL (3 50 unit subcut DAILY 08/25/23 Unknown History mL) subcutaneous pen (Lantus Solostar U-100 Insulin) Allergy/AdvReac Type Severity Reaction Status Date / Time No Known Allergies Allergy Verified 05/25/23 15:40 Social History household members: significant other housing: house Smoking Status: Never smoker alcohol intake: never Physical Exam Const alert, oriented x3 and no apparent distress General Appearance: cooperative HEENT normocephalic and head/scalp atraumatic Neck supple and No nodes Resp normal air movement and clear to auscultation bilaterally Cardio regular rate and regular rhythm GI soft to palpation, non-tender and non-distended Extremity General Extremity: Negative for edema Skin Skin Narrative: R knee swelling, mild soreness Neuro CN's II-XII intact bilaterally Lab / Micro Data Attestation: I reviewed the patient's lab results. 08/26/23 06:57 08/26/23 06:57 Labs: Laboratory Results - last 24 hr 08/25/23 16:50: POC Glucose 177 H 08/25/23 22:14: POC Glucose 223 H 08/26/23 06:24: POC Glucose 196 H 08/26/23 06:57: WBC 6.9, RBC 3.97 L, Hgb 11.1 L, Hct 34.6 L, MCV 87.2, MCH 28.0, MCHC 32.1, RDW Std Deviation 39.9, RDW Coeff of Pippa 12.8, Plt Count 198, MPV 9.9, Immature Gran % (Auto) 0.400, Neut % (Auto) 63.8, Lymph % (Auto) 19.1, [place] % (Auto) 13.3 H, Eos % (Auto) 3.0, Baso % (Auto) 0.4, Absolute Neuts (auto) 4.4, Absolute Lymphs (auto) 1.32, Nucleated RBC % 0, Sodium 139, Potassium 3.6, C hloride 109 H, Carbon Dioxide 26.0, Anion Gap 4 L, BUN 15, Creatinine 1.31 H, Estim Creat Clear Calc 96.69, Est GFR (MDRD) Af Amer 78, Est GFR (MDRD) Non-Af 64, BUN/Creatinine Ratio 11.5, Glucose 208 H, Calcium 8.2 L, Total Bilirubin 0.40, AST 13 L, ALT 26, Alkaline Phosphatase 88, Total Protein 6.2 L, Albumin 2.9 L, Globulin 3.3, Albumin/Globulin Ratio 0.9 08/26/23 11:33: POC Glucose 217 H Micro: Microbiology 08/25/23 Unknown Incision/Surgical Site Gram Stain - Final 08/24/23 22:30 Fluid - Synovial (joint) Gram Stain - Final
[2023-08-26] MEDS: Acetaminophen 500 MG Tablet 1000 MG PO ×2 (14:11→21:00)
[2023-08-26] MEDS: oxyCODONE 5 MG Tablet PO ×2 (14:38→20:02)
--- NOTE | 2023-08-26 14:42 | PCM.RX.CS ---
Consult Antibiotic Management Pharmacy has been consulted to manage selected antibiotic: Vancomycin Type of Intervention Type of Consult: Follow-up Labs Labs: Sodium 139 mmol/L (136-145) 08/26/23 06:57 Potassium 3.6 mmol/L (3.5-5.1) 08/26/23 06:57 Chloride 109 mmol/L (98-107) H 08/26/23 06:57 Carbon Dioxide 26.0 mmol/L (21.0-32.0) 08/26/23 06:57 Anion Gap 4 (5-15) L 08/26/23 06:57 BUN 15 mg/dL (7-18) 08/26/23 06:57 Creatinine 1.31 mg/dL (0.70-1.30) H 08/26/23 06:57 Est GFR (MDRD) Af Amer 78 mL/min (>60) 08/26/23 06:57 Est GFR (MDRD) Non-Af 64 mL/min (>60) 08/26/23 06:57 BUN/Creatinine Ratio 11.5 RATIO (10-20) 08/26/23 06:57 Glucose 208 mg/dL (74-106) H 08/26/23 06:57 Vancomycin Trough 14.0 ug/mL (5.0-15.0) 08/26/23 13:25 Microbiology Microbiology: Microbiology 08/25/23 Unknown Incision/Surgical Site Gram Stain - Final 08/24/23 22:30 Fluid - Synovial (joint) Gram Stain - Final Pharmacy Plan for Drug Dosing Pharmacy Plan for Drug Dosing: VANCOMYCIN LEVEL RECEIVED Current Vancomycin Dose: 1250MG Q12 Number of Doses Received: 3 Vancomycin Level: 14 MG/DL Hours Since Last Dose: 11 Renal Function: SCr 1.31 mg/dL Renal Function Trend: improved Vancomycin Plan/Comments: 11 hour trough was therapeutic (goal 10-15mg/dL). Will continue current dosing at this time and get a trough in 2 days. Pending Level: 08/28/23 @ 1330 Pharmacy Service will continue to monitor and adjust dosing as required.
[2023-08-26 15:09] LABS: Lyme Scn Total Ab w/Rflx Negative (Negative)
[2023-08-26] MEDS: Ceftriaxone 2 GM in 0.9% Normal Saline (50mL MB+) 50 ML IV (15:17)
--- NOTE | 2023-08-26 16:14 | PCM.PN.HOSP ---
Reason for Visit Reason for Visit: Diagnoses Type 2 diabetes mellitus with hyperglycemia (08/25/23) Essential (primary) hypertension (08/25/23) Pyogenic arthritis, unspecified (08/25/23) Effusion, right knee (08/25/23) Pain in right knee (08/25/23) Subjective Subjective Still has a significant amount of pain and knee, no chest pain or shortness of breath, feels his upper left posterior buttock is a little bit bruised but has no other specific complaints Objective Data Objective Data Vital Signs: Vital Signs Temp Pulse Resp BP Pulse Ox O2 Del Method O2 Flow Rate 98 F 89 18 164/96 H 97 Room Air 2 08/26/23 14:15 08/26/23 14:15 08/26/23 14:15 08/26/23 14:15 08/26/23 14:15 08/26/23 14:15 08/25/23 15:37 Oxygen Flow Rate (L/min) 2 Oxygen Delivery Method Room Air Weight: 111.6 kg Body Mass Index (BMI) 33.3 Intake & Output: Intake and Output for Last 24 Hours 08/24/23 08/25/23 08/26/23 23:59 23:59 23:59 Intake Total 1749.59 / 2588.92 1709.58 / 1709.58 Output Total 700 / 700 950 / 950 Balance 1049.59 / 1888.92 759.58 / 759.58 Lab / Micro Data 08/26/23 06:57 08/26/23 06:57 Labs: Laboratory Results - last 24 hr 08/25/23 00:25: Lyme Total Antibody Negative 08/25/23 16:50: POC Glucose 177 H 08/25/23 22:14: POC Glucose 223 H 08/26/23 06:24: POC Glucose 196 H 08/26/23 06:57: WBC 6.9, RBC 3.97 L, Hgb 11.1 L, Hct 34.6 L, MCV 87.2, MCH 28.0, MCHC 32.1, RDW Std Deviation 39.9, RDW Coeff of Pippa 12.8, Plt Count 198, MPV 9.9, Immature Gran % (Auto) 0.400, Neut % (Auto) 63.8, Lymph % (Auto) 19.1, [place] % (Auto) 13.3 H, Eos % (Auto) 3.0, Baso % (Auto) 0.4, Absolute Neuts (auto) 4.4, Absolute Lymphs (auto) 1.32, Nucleated RBC % 0, Sodium 139, Potassium 3.6, Chloride 109 H, Carbon Dioxide 26.0, Anion Gap 4 L, BUN 15, Creatinine 1.31 H, Estim Creat Clear Calc 96.69, Est GFR (MDRD) Af Amer 78, Est GFR (MDRD) Non-Af 64, BUN/Creatinine Ratio 11.5, Glucose 208 H, Calcium 8.2 L, Total Bilirubin 0.40, AST 13 L, ALT 26, Alkaline Phosphatase 88, Total Protein 6.2 L, Albumin 2.9 L, Globulin 3.3, Albumin/Globulin Ratio 0.9 08/26/23 11:33: POC Glucose 217 H 08/26/23 13:25: Vancomycin Trough 14.0 Micro: Microbiology 08/25/23 Unknown Incision/Surgical Site Gram Stain - Final 08/24/23 22:30 Fluid - Synovial (joint) Gram Stain - Final Physical Exam Narrative General: Alert, oriented, no apparent distress HEENT: Atraumatic, normocephalic Eyes: Anicteric, normal conjunctiva, extraocular movements grossly intact Neck: Supple Respiratory: Clear to auscultation bilaterally, normal respiratory effort Cardiovascular: Regular rate and rhythm GI: Soft, nontender, nondistended Extremities: Right knee with Steri-Strips appreciated on surgical site evaluated Musculoskeletal: Moving all extremities Neuro: No overt focal neurological deficits Skin: No rashes appreciated Psych: Cooperative Assessment & Plan Assessment/Plan (1) Acute pain of right knee: (2) Effusion, right knee: PLAN: Plan # Right knee pain and effusion -Several days of pain and swelling prior to admission -Had joint aspiration in ED and results were equivocal -Given uncertainty patient was started on IV antibiotics and he was taken to the OR for washout 08/24 -IntraOp cultures pending -ID consulted and narrowed antibiotics, presently awaiting culture results -Pain control -Physical therapy consult Chronic problems: #Type 2 diabetes mellitus-Glucose checks and sliding scale insulin, long-acting insulin 20 units daily, will be able to increase as patient's p.o. intake improves #HTN- elevated, resumed clonidine at half dose, will likely be able to increase to full home dose, continue amlodipine and beta-sue #Gout- no crystals in fluid appreciated, continue allopurinol #DVT ppx: Lovenox subcu Nohelia Ricketts MD Charges/Coding Visit Charges Inpatient E&M: 88796 Subs Hosp L1
[2023-08-26 17:04] LABS: Bedside Glucose 214 mg/dL (74-106)
[2023-08-26] MEDS: Atorvastatin Calcium 40 MG Tablet PO (21:01)
[2023-08-26] MEDS: cloNIDine HCl 0.1 MG Tablet PO (21:01)
[2023-08-26] MEDS: hydrALAZINE 20 MG/ML Vial 10 MG IV (21:18)
[2023-08-26 21:31] LABS: Bedside Glucose 194 mg/dL (74-106)
[2023-08-27] VITALS (7 sets, daily range): BP systolic 140–194; BP diastolic 87–133; PULSE 72–82; RESP 16–18; TEMP 36.6–37.4; O2SAT 95–99; BMI 33.3
[2023-08-27] MEDS: oxyCODONE 5 MG Tablet PO ×4 (02:07→21:20)
[2023-08-27] MEDS: Vancomycin HCl 1,250 MG in 0.9% Normal Saline (250mL Bag) 250 ML 167 MG IV ×2 (02:07→14:25)
[2023-08-27] MEDS: Insulin Lispro 100 UNIT/ML INSULN.PEN SC ×4 (06:23→21:34)
[2023-08-27] MEDS: cloNIDine HCl 0.1 MG Tablet PO ×3 (06:24→21:28)
[2023-08-27] MEDS: Acetaminophen 500 MG Tablet 1000 MG PO ×3 (06:24→21:21)
[2023-08-27 06:54] LABS: Bedside Glucose 152 mg/dL (74-106)
[2023-08-27 08:12] LABS: Absolute Lymphocyte Count 1.29 X10^3/uL (0.83-4.51); Absolute Neutrophil Count 3.7 X10^3/uL (2.0-7.7); Basophil# 0.03 X10^3/uL; Basophil% 0.5 % (0-1); Eosinophil# 0.25 X10^3/uL; Eosinophils% 4.1 % (0-5); Hemoglobin 11.2 g/dL (13.0-16.5); Lymphocyte # 1.29 X10^3/ul (0.83-4.51); Lymphocyte % 21.2 % (19-41); Mean Corpuscular Volume 87.5 fL (80-94); Mean Platelet Vol. 9.7 fl (6.2-12.0); Monocyte# 0.77 X10^3/uL; Monocyte% 12.6 % (0-10); NRBC Flagged by Analyzer 0 % (0-5); Neutrophil # 3.73 X10^3/uL (2.7-7.7); Neutrophil % 61.3 % (47-70); Platelet Count 217 K/mm3 (150-450); RBC Distribution Width CV 12.8 % (11.6-14.6); RBC Distribution Width SD 40.4 fl (35.1-43.9); White Blood Count 6.1 K/mm3 (4.4-11.0)
[2023-08-27] MEDS: Multivitamins,Therapeutic Tablet 1 TABLET PO (08:12)
[2023-08-27 08:44] LABS: ALB/GLOB Ratio 0.9 RATIO (0.9-2.4); AST(SGOT) 16 U/L (15-37); Alanine Aminotransfer ALT/SGPT 20 U/L (16-61); Albumin, Serum 2.9 g/dL (3.2-5.0); Alkaline Phosphatase 84 U/L (45-117); Anion Gap 6 (5-15); BUN 13 mg/dL (7-18); BUN/Creat Ratio 10.8 RATIO (10-20); Calcium,Total 8.6 mg/dL (8.5-10.1); Chloride 109 mmol/L (98-107); EST Glomerular Filtration Rate 71 mL/min (>60); Est Glom Filt Rate - Afr Amer 86 mL/min (>60); Estimated Creatinine Clearance 105.51 ml/min; Globulin 3.2 g/dL (2.2-4.2); Glucose 193 mg/dL (74-106); Potassium 3.7 mmol/L (3.5-5.1); Protein, Total 6.1 g/dL (6.4-8.2); Sodium Level 140 mmol/L (136-145)
--- NOTE | 2023-08-27 09:49 | PCM.PN.ID ---
Physical Exam Narrative R knee pain is bad when pain meds wear off. Now new R 1st toe pain, swelling; thinks this is similar to prior gout episodes. No fever. Const alert and no apparent distress General Appearance: cooperative Resp normal air movement and clear to auscultation bilaterally Cardio regular rate and regular rhythm GI soft to palpation, non-tender and non-distended Extremity Extremity Narrative: R knee and R toe swelling, painful to touch/movement Skin no rashes or lesions noted ID ID: Route of nutrition/ use of supplements: [] Nutritional Intake: [] IV Site: [] Todd Catheter: [] Assessment & Plan Assessment/Plan (1) Septic arthritis: PLAN: Taken to OR 08/25/[address] Ferreira for I&D. Cxs neg so far. On vanc/ceftriaxone. Lyme neg, but has been collected early in the disease course. No h/o rash or tick bite. Crystals neg on aspiration. Now with R 1st toe pain/swelling, similar to prior gout episodes. Is on allopurinol, had reaction with prednisone in the past. Will check gonorrhea/chlamydia. Autoimmune disease is also on the differential. Not clear if the knee and the toe are related to the same process. Will follow
[2023-08-27] MEDS: Ceftriaxone 2 GM in 0.9% Normal Saline (50mL MB+) 50 ML IV (10:03)
[2023-08-27] MEDS: Lactobacillis Acidophilus 2 CAP PO ×2 (10:07→21:21)
[2023-08-27] MEDS: Insulin Glargine-YFGN 100 UNIT/ML Pen 20 UNIT SC (10:07)
[2023-08-27] MEDS: Allopurinol 100 MG Tablet PO (10:08)
[2023-08-27] MEDS: amLODIPine 10 MG Tablet PO (10:08)
[2023-08-27] MEDS: Metoprolol(XL)Succ 50 MG Tablet PO (10:08)
[2023-08-27 11:49] LABS: Bedside Glucose 231 mg/dL (74-106)
--- NOTE | 2023-08-27 13:30 | PCM.PN.HOSP ---
Reason for Visit Reason for Visit: Diagnoses Type 2 diabetes mellitus with hyperglycemia (08/25/23) Essential (primary) hypertension (08/25/23) Pyogenic arthritis, unspecified (08/25/23) Effusion, right knee (08/25/23) Pain in right knee (08/25/23) Subjective Subjective Patient continues to have knee pain, possibly slightly better however now has left big toe pain that started suddenly this morning Objective Data Objective Data Vital Signs: Vital Signs Temp Pulse Resp BP Pulse Ox O2 Del Method O2 Flow Rate 97.8 F 72 16 140/97 H 98 Room Air 2 08/27/23 07:58 08/27/23 10:08 08/27/23 07:58 08/27/23 07:58 08/27/23 07:58 08/27/23 07:58 08/25/23 15:37 Oxygen Flow Rate (L/min) 2 Oxygen Delivery Method Room Air Weight: 111.5 kg Body Mass Index (BMI) 33.3 Intake & Output: Intake and Output for Last 24 Hours 08/25/23 08/26/23 08/27/23 23:59 23:59 23:59 Intake Total 1749.59 / 2588.92 1989.08 / 2189.08 725 / 725 Output Total 700 / 700 950 / 950 1700 / 1700 Balance 1049.59 / 1888.92 1039.08 / 1239.08 -975 / -975 Lab / Micro Data 08/27/23 07:21 08/27/23 07:21 Labs: Laboratory Results - last 24 hr 08/25/23 00:25: Lyme Total Antibody Negative 08/26/23 13:25: Vancomycin Trough 14.0 08/26/23 16:44: POC Glucose 214 H 08/26/23 21:04: POC Glucose 194 H 08/27/23 06:23: POC Glucose 152 H 08/27/23 07:21: WBC 6.1, RBC 4.00 L, Hgb 11.2 L, Hct 35.0 L, MCV 87.5, MCH 28.0, MCHC 32.0, RDW Std Deviation 40.4, RDW Coeff of Pippa 12.8, Plt Count 217, MPV 9.7, Immature Gran % (Auto) 0.300, Neut % (Auto) 61.3, Lymph % (Auto) 21.2, [place] % (Auto) 12.6 H, Eos % (Auto) 4.1, Baso % (Auto) 0.5, Absolute Neuts (auto) 3.7, Absolute Lymphs (auto) 1.29, Nucleated RBC % 0, Sodium 140, Potassium 3.7, Chloride 109 H, Carbon Dioxide 25.0, Anion Gap 6, BUN 13, Creatinine 1.20, Estim Creat Clear Calc 105.51, Est GFR (MDRD) Af Amer 86, Est GFR (MDRD) Non-Af 71, BUN/Creatinine Ratio 10.8, Glucose 193 H, Calcium 8.6, Total Bilirubin 0.40, AST 16, ALT 20, Alkaline Phosphatase 84, Total Protein 6.1 L, Albumin 2.9 L, Globulin 3.2, Albumin/Globulin Ratio 0.9 08/27/23 11:28: POC Glucose 231 H 08/27/23 12:37: Chlamydia DNA (ZULMA) Cancelled, N.gonorrhoeae DNA (ZULMA) Cancelled Micro: Microbiology 08/25/23 Unknown Incision/Surgical Site Gram Stain - Final 08/25/23 Unknown Incision/Surgical Site Wound Culture - Final No growth aerobically. 08/25/23 Unknown Incision/Surgical Site Anaerobic Culture - Preliminary No growth in 48 hours. 08/24/23 22:30 Fluid - Synovial (joint) Gram Stain - Final 08/24/23 22:30 Fluid - Synovial (joint) Anaerobic Culture - Preliminary No growth in 48 hours. Physical Exam Narrative General: Alert, oriented, no apparent distress HEENT: Atraumatic, normocephalic Eyes: Anicteric, normal conjunctiva, extraocular movements grossly intact Neck: Supple Respiratory: Clear to auscultation bilaterally, normal respiratory effort Cardiovascular: Regular rate and rhythm GI: Soft, nontender, nondistended Extremities: Right knee with Steri-Strips appreciated on surgical site evaluated, left big toe swollen and painful Musculoskeletal: Moving all extremities Neuro: No overt focal neurological deficits Skin: No rashes appreciated Psych: Cooperative Assessment & Plan Assessment/Plan (1) Acute pain of right knee: (2) Effusion, right knee: PLAN: Plan # Polyarthritis -Several days of right knee pain and swelling prior to admission -Had joint aspiration in ED and results were equivocal -Given uncertainty patient was started on IV antibiotics and he was taken to the OR for washout 08/24 -IntraOp cultures pending -ID consulted and narrowed antibiotics, presently awaiting culture results -Pain control -Physical therapy consult -08/26: Patient cultures no growth to date for right knee, now has swollen first MTP joint on the right foot, does have history of gout, unclear if this is gout or related to his other joint effusion, ID evaluated and ordered chlamydia, will order repeat ESR and CRP as well as autoimmune workup, appreciate ID recommendations, Ortho following Chronic problems: #Type 2 diabetes mellitus-Glucose checks and sliding scale insulin, long-acting insulin 20 units daily, will be able to increase as patient's p.o. intake improves -08/26: Fasting glucose 152 #HTN- elevated, resumed clonidine at half dose, will likely be able to increase to full home dose, continue amlodipine and beta-sue -08/26: Increased clonidine to home dose with better control #Gout- no crystals in fluid appreciated, continue allopurinol #DVT ppx: Lovenox subcu Nohelia Ricketts MD Charges/Coding Visit Charges Inpatient E&M: 53576 Subs Hosp L1
[2023-08-27 14:00] LABS: Erythrocyte Sedimentation Rate 43 mm/hr (0-20)
[2023-08-27 14:03] LABS: Rheumatoid Factor < 10.0 IU/mL (<15); Thyroid Stim Hormone (TSH) 0.57 uIU/mL (0.358-3.74); Uric Acid 5.1 mg/dL (3.5-7.2)
--- NOTE | 2023-08-27 15:53 | CASEMGMT ---
RN CM NOTE: Therapy has worked w/pt today w/steps and also w/using crutches and WW. Pt does have crutches @ home and is agreeable to getting a WW @ dc. Aware [facility] is affiliated w/[facility] and state to get walker from [facility]. Script for walker obtained from Dr Ricketts and placed on pt's chart. Discussed therapy @ discharge. Pt wishes to discharge home and would like to do OP therapy @ [facility]. Script obtained from Dr Ricketts and provided to pt and sig other, Ambreen, who is at bedside. Ambreen prefers [facility], stating they are about 5 min away from there, and pt agreeable. Ambreen asks for script to be faxed to [facility] and she states she will f/u with them and schedule appt for pt. She is aware unable to schedule therapy appt on same day of discharge. Script faxed to [facility] at this time. Pt and sig other would like for pt to get meds from [facility] retail pharmacy @ or. [facility] updated. Pt interested in completing HCPOA. Pt states his mother and father are both living but he has not spoken w/his father since he was about 22 yrs-old. He has 5 siblings and does not speak with them. He has no children. Pt just medicated for pain and was starting to fall asleep @ end of conversation. Sig other asks for SW to speak w/him tomorrow re: HCPOA. MARCUS, Glenna, made aware of pt's interest in completing paperwork. Pt and sig other deny having other discharge needs/concerns at this time. Made aware to ask for CM if any further needs arise. [place] CHOUDHARYN RN CM
[2023-08-27 17:15] LABS: Bedside Glucose 151 mg/dL (74-106)
[2023-08-27 17:57] LABS: Bacteria 0 SEEN /hpf (None Seen); Mucous, Urine 0 SEEN /hpf (<or=2+); Red Blood Cells-Urine 0 SEEN /hpf (0-5); Squamous Epithelial Cells - UA 0 SEEN /hpf (0-5); White Blood Cells 0 SEEN /hpf (0-5)
[2023-08-27 18:10] LABS: Color, Urine Yellow (Yellow); Glucose, Dipstick 1000 mg/dl (Normal); Ketone-Dipstick Negative (Negative); Leukocyte Esterase-Dipstick Negative /ul (Negative); Nitrite-Dipstick Negative (Negative); Occult Blood-Urine Negative /ul (Negative); Protein-Dipstick Negative (Negative); Specific Gravity, Urine 1.015 (1.002-1.030); Urine Bilirubin Dipstick Negative (Negative); Urine Clarity Clear (Clear); Urine Urobilinogen Normal (Normal)
[2023-08-27] MEDS: Atorvastatin Calcium 40 MG Tablet PO (21:22)
[2023-08-27 21:59] LABS: Bedside Glucose 194 mg/dL (74-106)
[2023-08-28] VITALS (9 sets, daily range): BP systolic 138–188; BP diastolic 92–112; PULSE 61–84; RESP 16; TEMP 36.4–37; O2SAT 97–100; BMI 33.3
[2023-08-28] MEDS: oxyCODONE 5 MG Tablet PO ×3 (02:06→11:37)
[2023-08-28] MEDS: 0.9% Saline Lock 10 ML Syringe IV ×2 (02:06→09:33)
[2023-08-28] MEDS: Vancomycin HCl 1,250 MG in 0.9% Normal Saline (250mL Bag) 250 ML 167 MG IV (02:06)
[2023-08-28] MEDS: cloNIDine HCl 0.1 MG Tablet PO ×3 (05:17→22:07)
[2023-08-28] MEDS: Acetaminophen 500 MG Tablet 1000 MG PO ×3 (05:18→22:06)
[2023-08-28] MEDS: Insulin Lispro 100 UNIT/ML INSULN.PEN SC ×4 (06:18→22:07)
[2023-08-28 06:38] LABS: Bedside Glucose 157 mg/dL (74-106)
[2023-08-28 06:55] LABS: Erythrocyte Sedimentation Rate 50 mm/hr (0-20)
[2023-08-28 06:57] LABS: Absolute Lymphocyte Count 1.45 X10^3/uL (0.83-4.51); Absolute Neutrophil Count 4.3 X10^3/uL (2.0-7.7); Basophil# 0.04 X10^3/uL; Basophil% 0.6 % (0-1); Eosinophil# 0.31 X10^3/uL; Eosinophils% 4.5 % (0-5); Hematocrit 35.4 % (40-54); Hemoglobin 11.3 g/dL (13.0-16.5); Lymphocyte # 1.45 X10^3/ul (0.83-4.51); Lymphocyte % 20.9 % (19-41); Mean Corp Hgb Conc 31.9 g/dL (32-36); Mean Corpuscular Hgb 27.7 pg (27.0-32.0); Mean Corpuscular Volume 86.8 fL (80-94); Mean Platelet Vol. 9.5 fl (6.2-12.0); Monocyte# 0.83 X10^3/uL; NRBC Flagged by Analyzer 0 % (0-5); Neutrophil # 4.26 X10^3/uL (2.7-7.7); Neutrophil % 61.4 % (47-70); Platelet Count 232 K/mm3 (150-450); RBC Distribution Width CV 12.6 % (11.6-14.6); RBC Distribution Width SD 39.8 fl (35.1-43.9); Red Blood Count 4.08 M/mm3 (4.6-6.2); White Blood Count 6.9 K/mm3 (4.4-11.0)
[2023-08-28 07:22] LABS: ALB/GLOB Ratio 0.8 RATIO (0.9-2.4); AST(SGOT) 16 U/L (15-37); Alanine Aminotransfer ALT/SGPT 19 U/L (16-61); Albumin, Serum 2.8 g/dL (3.2-5.0); Alkaline Phosphatase 88 U/L (45-117); Anion Gap 7 (5-15); BUN 14 mg/dL (7-18); BUN/Creat Ratio 12.3 RATIO (10-20); Calcium,Total 8.7 mg/dL (8.5-10.1); Chloride 107 mmol/L (98-107); Creatinine, Serum 1.14 mg/dL (0.70-1.30); EST Glomerular Filtration Rate 75 mL/min (>60); Est Glom Filt Rate - Afr Amer 91 mL/min (>60); Estimated Creatinine Clearance 111.06 ml/min; Globulin 3.5 g/dL (2.2-4.2); Glucose 179 mg/dL (74-106); Potassium 3.9 mmol/L (3.5-5.1); Protein, Total 6.3 g/dL (6.4-8.2); Sodium Level 139 mmol/L (136-145)
[2023-08-28] MEDS: Multivitamins,Therapeutic Tablet 1 TABLET PO (08:18)
[2023-08-28] MEDS: Allopurinol 100 MG Tablet PO (08:18)
[2023-08-28] MEDS: Lactobacillis Acidophilus 2 CAP PO ×2 (08:18→22:06)
[2023-08-28] MEDS: amLODIPine 10 MG Tablet PO (08:18)
[2023-08-28] MEDS: Metoprolol(XL)Succ 50 MG Tablet PO (08:18)
[2023-08-28] MEDS: Insulin Glargine-YFGN 100 UNIT/ML Pen 20 UNIT SC (08:19)
[2023-08-28] MEDS: Losartan Potassium 25 MG Tablet PO (08:22)
--- NOTE | 2023-08-28 08:37 | PCM.PN.ORT ---
Subjective Subjective Now has right great toe pain. Knee still sore and swollen, trying to do some ROM. had past decrease in kidney function 'to 30%' per the patient with 2 weeks oral prednisone for gout in the past. Objective Data Objective Data Vital Signs: Vital Signs Temp Pulse Resp BP Pulse Ox O2 Del Method O2 Flow Rate 98.4 F 66 16 154/92 H 99 Room Air 2 08/28/23 08:35 08/28/23 08:35 08/28/23 08:35 08/28/23 08:35 08/28/23 08:35 08/28/23 08:35 08/25/23 15:37 Oxygen Flow Rate (L/min) 2 Oxygen Delivery Method Room Air Weight: 245 lb 13.047 oz Body Mass Index (BMI) 33.3 Intake & Output: Intake and Output for Last 24 Hours 08/26/23 08/27/23 08/28/23 23:59 23:59 23:59 Intake Total 1989.08 / 2189.08 1000 / 1000 275 / 275 Output Total 950 / 950 1700 / 1700 600 / 600 Balance 1039.08 / 1239.08 -700 / -700 -325 / -325 Lab / Micro Data Attestation: I reviewed the patient's lab results. 08/28/23 06:28 08/28/23 06:28 Labs: Laboratory Results - last 24 hr 08/27/23 07:21: ESR 43 H, Sodium 140, Potassium 3.7, Chloride 109 H, Carbon Dioxide 25.0, Anion Gap 6, BUN 13, Creatinine 1.20, Estim Creat Clear Calc 105.51, Est GFR (MDRD) Af Amer 86, Est GFR (MDRD) Non-Af 71, BUN/Creatinine Ratio 10.8, Glucose 193 H, Uric Acid 5.1, Calcium 8.6, Total Bilirubin 0.40, AST 16, ALT 20, Alkaline Phosphatase 84, C-React Prot Ext Range 75.20 H, Total Protein 6.1 L, Albumin 2.9 L, Globulin 3.2, Albumin/Globulin Ratio 0.9, TSH 0.57, Rheumatoid Factor < 10.0 08/27/23 11:28: POC Glucose 231 H 08/27/23 12:37: Urine Color Yellow, Urine Clarity Clear, Urine pH 6.0, Ur Specific [place] 1.015, Urine Protein Negative, Urine Glucose (UA) 1000 H, Urine Ketones Negative, Urine Occult Blood Negative, Urine Nitrite Negative, Urine Bilirubin Negative, Urine Urobilinogen Normal, Ur Leukocyte Esterase Negative, Urine RBC 0 SEEN, Urine WBC 0 SEEN, Ur Squamous Epith Cells 0 SEEN, Urine Bacteria 0 SEEN, Urine Mucus 0 SEEN, Chlamydia DNA (ZULMA) Cancelled, N.gonorrhoeae DNA (ZULMA) Cancelled 08/27/23 16:55: POC Glucose 151 H 08/27/23 21:33: POC Glucose 194 H 08/28/23 06:17: POC Glucose 157 H 08/28/23 06:28: WBC 6.9, RBC 4.08 L, Hgb 11.3 L, Hct 35.4 L, MCV 86.8, MCH 27.7, MCHC 31.9 L, RDW Std Deviation 39.8, RDW Coeff of Pippa 12.6, Plt Count 232, MPV 9.5, Immature Gran % (Auto) 0.600, Neut % (Auto) 61.4, Lymph % (Auto) 20.9, Swain % (Auto) 12.0 H, Eos % (Auto) 4.5, Baso % (Auto) 0.6, Absolute Neuts (auto) 4.3, Absolute Lymphs (auto) 1.45, Nucleated RBC % 0, ESR 50 H, Sodium 139, Potassium 3.9, Chloride 107, Carbon Dioxide 25.0, Anion Gap 7, BUN 14, Creatinine 1.14, Estim Creat Clear Calc 111.06, Est GFR (MDRD) Af Amer 91, Est GFR (MDRD) Non-Af 75, BUN/Creatinine Ratio 12.3, Glucose 179 H, Calcium 8.7, Total Bilirubin 0.40, AST 16, ALT 19, Alkaline Phosphatase 88, C-React Prot Ext Range 75.50 H, Total Protein 6.3 L, Albumin 2.8 L, Globulin 3.5, Albumin/Globulin Ratio 0.8 L Micro: Microbiology 08/24/23 22:30 Fluid - Synovial (joint) Gram Stain - Final 08/24/23 22:30 Fluid - Synovial (joint) Body Fluid Culture - Preliminary No growth-Final to follow 08/24/23 22:30 Fluid - Synovial (joint) Anaerobic Culture - Preliminary No growth in 48 hours. 08/27/23 12:37 Urine, Clean Catch Chlamydia trachomatis (PCR) - Final 08/27/23 12:37 Urine, Clean Catch Neisseria gonorrhoeae (PCR) - Final 08/25/23 Unknown Incision/Surgical Site Gram Stain - Final 08/25/23 Unknown Incision/Surgical Site Wound Culture - Final No growth aerobically. 08/25/23 Unknown Incision/Surgical Site Anaerobic Culture - Preliminary No growth in 48 hours. Physical Exam Const alert, oriented x3, no apparent distress and well nourished Extremity Extremity Narrative: no change to knee exam, mild-mod effusion, no redness, trace warmth, rom 10-40. nvi. portals clean dry steri strips in place. no drainage. right great toe 1st mtp joint very painful to palpate and with ROM, mild warmth no redness Assessment & Plan Assessment/Plan (1) Acute pain of right knee: PLAN: 42 yr M with right knee pain and swelling, now new right toe 1st mtp swelling with hx of gout. Despite negative crystal analysis, I think it is reasonable to treat for gout while awaiting final cultures which should be available soon. May still be auto immune as patient had quite the kdieny disruption with prednisone tx in the past. At this point can be managed by ID and medicine, and no further indication for surgery here so ortho signs off. Pls call with concerns though. (2) Effusion, right knee:
[2023-08-28] MEDS: Ceftriaxone 2 GM in 0.9% Normal Saline (50mL MB+) 50 ML IV (09:31)
--- NOTE | 2023-08-28 10:35 | CASEMGMT ---
SELIN CM to pt room at this time. Pt states that he is still interested in a FWW set up. [facility] liaison notified and came to [facility] and picked up the physical Rx and face sheet due to [facility] being down. [place] to deliver to pt room once appropriate. [place] notified that the pt will be discharging over the weekend. Pt states that he still plans to f/u with OP tx after DC and denies further needs at this time.
[2023-08-28] MEDS: 0.9% Normal Saline (1000mL) 1,000 ML 75 ML IV (11:31)
--- NOTE | 2023-08-28 11:35 | CASEMGMT ---
Social Work- SW met with pt to complete HCPOA. Pt named Bettye, edwin, as primary agent, and JONO Crook, as secondary agent. HCPOA and copies provided to pt and also placed on chart. ANGE Jackman
[2023-08-28 11:51] LABS: Bedside Glucose 212 mg/dL (74-106)
[2023-08-28] MEDS: Indomethacin 25 MG Capsule 50 MG PO ×2 (12:34→16:20)
--- NOTE | 2023-08-28 14:00 | PCM.PN.ID ---
Physical Exam Const alert and no apparent distress General Appearance: cooperative Resp normal air movement and clear to auscultation bilaterally Cardio regular rate and regular rhythm GI soft to palpation, non-tender and non-distended Skin no rashes or lesions noted ID ID: Route of nutrition/ use of supplements: [] Nutritional Intake: [] IV Site: [] Todd Catheter: [] Assessment & Plan Assessment/Plan (1) Septic arthritis: PLAN: Taken to OR 08/25/[address] Ferreira for I&D. Cxs neg so far. On vanc/ceftriaxone. Lyme neg, but has been collected early in the disease course. No h/o rash or tick bite. Crystals neg on aspiration. Now with R 1st toe pain/swelling, similar to prior gout episodes. Is on allopurinol, had reaction with prednisone in the past. Neg gonorrhea/chlamydia. Autoimmune disease is also on the differential, labs pending. Not clear if the knee and the toe are related to the same process. Will stop vanc today, likely can stop ceftriaxone soon. Will follow
--- NOTE | 2023-08-28 16:17 | PN.HOSP_ITS ---
Reason for Visit Reason for Visit: Diagnoses Type 2 diabetes mellitus with hyperglycemia (08/25/23) Essential (primary) hypertension (08/25/23) Pyogenic arthritis, unspecified (08/25/23) Effusion, right knee (08/25/23) Pain in right knee (08/25/23) Subjective Subjective Continues to have pain in the big toe, also reports he has had some worsened vision bilaterally Objective Data Objective Data Vital Signs: Vital Signs Temp Pulse Resp BP Pulse Ox O2 Del Method O2 Flow Rate 97.7 F L 66 16 188/109 H 99 Room Air 2 08/28/23 15:30 08/28/23 15:30 08/28/23 15:30 08/28/23 15:30 08/28/23 15:30 08/28/23 15:30 08/25/23 15:37 Oxygen Flow Rate (L/min) 2 Oxygen Delivery Method Room Air Weight: 111.5 kg Body Mass Index (BMI) 33.3 Intake & Output: Intake and Output for Last 24 Hours 08/26/23 08/27/23 08/28/23 23:59 23:59 23:59 Intake Total 1989.08 / 2189.08 1000 / 1000 995 / 995 Output Total 950 / 950 1700 / 1700 600 / 600 Balance 1039.08 / 1239.08 -700 / -700 395 / 395 Lab / Micro Data 08/28/23 06:28 08/28/23 06:28 Labs: Laboratory Results - last 24 hr 08/27/23 12:37: Urine Color Yellow, Urine Clarity Clear, Urine pH 6.0, Ur Specific [place] 1.015, Urine Protein Negative, Urine Glucose (UA) 1000 H, Urine Ketones Negative, Urine Occult Blood Negative, Urine Nitrite Negative, Urine Bilirubin Negative, Urine Urobilinogen Normal, Ur Leukocyte Esterase Negative, Urine RBC 0 SEEN, Urine WBC 0 SEEN, Ur Squamous Epith Cells 0 SEEN, Urine Bacteria 0 SEEN, Urine Mucus 0 SEEN 08/27/23 16:55: POC Glucose 151 H 08/27/23 21:33: POC Glucose 194 H 08/28/23 06:17: POC Glucose 157 H 08/28/23 06:28: WBC 6.9, RBC 4.08 L, Hgb 11.3 L, Hct 35.4 L, MCV 86.8, MCH 27.7, MCHC 31.9 L, RDW Std Deviation 39.8, RDW Coeff of Pippa 12.6, Plt Count 232, MPV 9.5, Immature Gran % (Auto) 0.600, Neut % (Auto) 61.4, Lymph % (Auto) 20.9, [place]son % (Auto) 12.0 H, Eos % (Auto) 4.5, Baso % (Auto) 0.6, Absolute Neuts (auto) 4.3, Absolute Lymphs (auto) 1.45, Nucleated RBC % 0, ESR 50 H, Sodium 139, Potassium 3.9, Chloride 107, Carbon Dioxide 25.0, Anion Gap 7, BUN 14, Creatinine 1.14, Estim Creat Clear Calc 111.06, Est GFR (MDRD) Af Amer 91, Est GFR (MDRD) Non-Af 75, BUN/Creatinine Ratio 12.3, Glucose 179 H, Calcium 8.7, Total Bilirubin 0.40, AST 16, ALT 19, Alkaline Phosphatase 88, C-React Prot Ext Range 75.50 H, Total Protein 6.3 L, Albumin 2.8 L, Globulin 3.5, Albumin/Globulin Ratio 0.8 L 08/28/23 11:00: POC Glucose 212 H Micro: Microbiology 08/24/23 22:30 Fluid - Synovial (joint) Gram Stain - Final 08/24/23 22:30 Fluid - Synovial (joint) Body Fluid Culture - Preliminary No growth-Final to follow 08/24/23 22:30 Fluid - Synovial (joint) Anaerobic Culture - Preliminary No growth in 48 hours. 08/27/23 12:37 Urine, Clean Catch Chlamydia trachomatis (PCR) - Final 08/27/23 12:37 Urine, Clean Catch Neisseria gonorrhoeae (PCR) - Final 08/25/23 Unknown Incision/Surgical Site Gram Stain - Final 08/25/23 Unknown Incision/Surgical Site Wound Culture - Final No growth aerobically. 08/25/23 Unknown Incision/Surgical Site Anaerobic Culture - Preliminary No growth in 48 hours. Physical Exam Narrative General: Alert, oriented, no apparent distress HEENT: Atraumatic, normocephalic Eyes: Anicteric, normal conjunctiva, extraocular movements grossly intact Neck: Supple Respiratory: Clear to auscultation bilaterally, normal respiratory effort Cardiovascular: Regular rate and rhythm GI: Soft, nontender, nondistended Extremities: Right knee with Steri-Strips appreciated on surgical site evaluated, left big toe swollen and painful Musculoskeletal: Moving all extremities Neuro: No overt focal neurological deficits Skin: No rashes appreciated Psych: Cooperative Assessment & Plan Assessment/Plan (1) Acute pain of right knee: (2) Effusion, right knee: PLAN: Plan # Polyarthritis and history of gout -Several days of right knee pain and swelling prior to admission -Had joint aspiration in ED and results were equivocal -Given uncertainty patient was started on IV antibiotics and he was taken to the OR for washout 08/24 -IntraOp cultures pending -ID consulted and narrowed antibiotics, presently awaiting culture results -Pain control -Physical therapy consult -08/26: Patient cultures no growth to date for right knee, now has swollen first MTP joint on the right foot, does have history of gout, unclear if this is gout or related to his other joint effusion, ID evaluated and ordered chlamydia, will order repeat ESR and CRP as well as autoimmune workup, appreciate ID recommendations, Ortho following -08/27: Discussed with Ortho, it is possible that this is all consistent with gout though further workup still pending, it was recommended given patient's adverse reaction to prednisone in the past to start indomethacin if patient improves this would lend further to the diagnosis of gout and ultimately patient will be able to follow-up with his PCP and with Ortho. ID still following, patient on Rocephin and vancomycin discontinued, so far cx NGTD, indomethacin started and will also start IV fluids with this, patient on allopurinol 100, may need to increase this on discharge to help prevent further gout flares if no other etiology identified #HTN - elevated, resumed clonidine at half dose, will likely be able to increase to full home dose, continue amlodipine and beta-sue -08/26: Increased clonidine to home dose with better control -08/27: Will change metoprolol to Coreg for better blood pressure control, have not started CHRISTIANO or ARB as indomethacin is being started #Type 2 diabetes mellitus -Glucose checks and sliding scale insulin, long-acting insulin 20 units daily, will be able to increase as patient's p.o. intake improves -08/26: Fasting glucose 152 -08/27: Patient reports that he did not have diabetes until June and has been on insulin since that time, will make endocrinology referral on discharge, also reports he has had worsening vision, advised to close ophtho follow-up and patient and significant other verbalized understanding #DVT ppx: Lovenox subcu Nohelia Ricketts MD Time spent in the patient's overall evaluation,decision-making process, review of diagnostic data, adjustment of management, discussion with other providers, nursing nursing and ancillary staff involved in patient's care documentation, 35 minutes Charges/Coding Visit Charges Inpatient E&M: 88678 Subs Hosp L2
[2023-08-28 16:40] LABS: Bedside Glucose 170 mg/dL (74-106)
[2023-08-28 22:05] LABS: Bedside Glucose 165 mg/dL (74-106)
[2023-08-28] MEDS: Atorvastatin Calcium 40 MG Tablet PO (22:06)
[2023-08-29] MEDS: 0.9% Normal Saline (1000mL) 1,000 ML 75 ML IV (02:00)
[2023-08-29] MEDS: cloNIDine HCl 0.1 MG Tablet PO ×2 (05:16→14:12)
[2023-08-29] MEDS: Acetaminophen 500 MG Tablet 1000 MG PO ×2 (05:16→14:12)
[2023-08-29 05:30] VITALS: BP 161/108; PULSE 64; RESP 16; TEMP 36.4; O2SAT 96
[2023-08-29 05:31] VITALS: BMI 33.5
[2023-08-29 06:51] LABS: Bedside Glucose 121 mg/dL (74-106)
[2023-08-29 07:33] LABS: Absolute Lymphocyte Count 1.27 X10^3/uL (0.83-4.51); Absolute Neutrophil Count 2.8 X10^3/uL (2.0-7.7); Basophil# 0.03 X10^3/uL; Basophil% 0.6 % (0-1); Eosinophil# 0.29 X10^3/uL; Eosinophils% 5.8 % (0-5); Hematocrit 34.9 % (40-54); Hemoglobin 11.1 g/dL (13.0-16.5); Lymphocyte # 1.27 X10^3/ul (0.83-4.51); Lymphocyte % 25.3 % (19-41); Mean Corp Hgb Conc 31.8 g/dL (32-36); Mean Corpuscular Hgb 27.5 pg (27.0-32.0); Mean Corpuscular Volume 86.6 fL (80-94); Mean Platelet Vol. 9.5 fl (6.2-12.0); Monocyte# 0.59 X10^3/uL; Monocyte% 11.8 % (0-10); NRBC Flagged by Analyzer 0 % (0-5); Neutrophil # 2.82 X10^3/uL (2.7-7.7); Neutrophil % 56.1 % (47-70); Platelet Count 227 K/mm3 (150-450); RBC Distribution Width CV 12.5 % (11.6-14.6); RBC Distribution Width SD 39.3 fl (35.1-43.9); Red Blood Count 4.03 M/mm3 (4.6-6.2)
[2023-08-29 07:40] LABS: Erythrocyte Sedimentation Rate 51 mm/hr (0-20)
[2023-08-29 07:53] LABS: ALB/GLOB Ratio 0.8 RATIO (0.9-2.4); AST(SGOT) 18 U/L (15-37); Alanine Aminotransfer ALT/SGPT 25 U/L (16-61); Albumin, Serum 2.7 g/dL (3.2-5.0); Alkaline Phosphatase 90 U/L (45-117); Anion Gap 4 (5-15); BUN 16 mg/dL (7-18); BUN/Creat Ratio 14.3 RATIO (10-20); Calcium,Total 8.9 mg/dL (8.5-10.1); Chloride 110 mmol/L (98-107); Creatinine, Serum 1.12 mg/dL (0.70-1.30); EST Glomerular Filtration Rate 77 mL/min (>60); Est Glom Filt Rate - Afr Amer 93 mL/min (>60); Estimated Creatinine Clearance 113.56 ml/min; Globulin 3.5 g/dL (2.2-4.2); Glucose 136 mg/dL (74-106); Potassium 4.2 mmol/L (3.5-5.1); Protein, Total 6.2 g/dL (6.4-8.2); Sodium Level 140 mmol/L (136-145)
[2023-08-29 08:35] VITALS: BP 151/100; PULSE 64; RESP 18; TEMP 36.6; O2SAT 100
[2023-08-29] MEDS: Multivitamins,Therapeutic Tablet 1 TABLET PO (08:37)
[2023-08-29] MEDS: amLODIPine 10 MG Tablet PO (08:37)
[2023-08-29] MEDS: Carvedilol 6.25 MG Tablet PO (08:37)
[2023-08-29] MEDS: Indomethacin 25 MG Capsule 50 MG PO ×2 (08:37→11:50)
[2023-08-29] MEDS: Lactobacillis Acidophilus 2 CAP PO (08:37)
[2023-08-29] MEDS: Allopurinol 100 MG Tablet PO (08:37)
[2023-08-29] MEDS: Ceftriaxone 2 GM in 0.9% Normal Saline (50mL MB+) 50 ML IV (10:44)
[2023-08-29] MEDS: Insulin Glargine-YFGN 100 UNIT/ML Pen 20 UNIT SC (10:44)
[2023-08-29] MEDS: oxyCODONE 5 MG Tablet PO ×2 (10:49→14:55)
[2023-08-29 11:06] LABS: Bedside Glucose 230 mg/dL (74-106)
[2023-08-29] MEDS: Insulin Lispro 100 UNIT/ML INSULN.PEN SC (11:50)
--- NOTE | 2023-08-29 13:50 | CASEMGMT ---
Notified by hospitalist pt in need of glucometer supplies. RN CM into pt room, pt sitting in bed in no distress. Pt denies any needs for glucometer or supplies. Pt states I have plenty of supplies at home but would like to get a smaller needle for insulin injections. Pt uses insulin pen at home. Informed pt to discuss any supply needs with PCP. Pt verbalized understanding and denies any additional needs at this time.
--- NOTE | 2023-08-29 13:54 | DCINST_ITS ---
Discharge Instructions Diet Discharge Diet: Carb Control Diet Activity Return to work on:: 09/07/23 Follow Up Care Test Results: Test results from this visit will be discussed in further detail at your follow- up appointment, if applicable. Discharge Plan Admission Admit Date/Time: 08/25/23 00:53 Primary Reason for Your Visit: Right knee pain Attending Provider: Nohelia Ricketts Primary Care Provider: Zachary Leal Consulting Providers: Claus Ferreira; Hay Gruber; Haim Gtz Instructions Patient Instructions: Treating Gout Attacks, Eating to Prevent Gout, ED Gout, ED Gout Diet Additional Instructions / Restrictions: DISCHARGE INSTRUCTIONS PLEASE READ *Please take this with you to your next doctors appointment* - You will be discharged with an additional 5 days of indomethacin that you will take 3 times daily for a gout flare (take with meals). It is possible that you may need a longer course, if symptoms do not continue to improve or still present at the end of your course please contact your primary care physician -Your chronic gout medication, allopurinol, will also be increased to 200 mg -Several autoimmune labs are still pending, your symptoms are most consistent with gout especially given your rapid improvement with indomethacin treatment however please follow-up with your primary care physician for these results as they may take a week or 2 to result -You are on 20 units of long-acting insulin daily and short acting insulin with meals. Your blood sugars have been fairly well-controlled in the morning so it is advised to take the 20 units of long-acting insulin daily and a prescription will be sent for sliding scale insulin for meals. Additional insulin supplies and scripts will need to be procured through your primary care physician's office -Sliding scale as follows: If 150-209 mg/dl = 1 unit; If 210-269 mg/dl = 2 units; If 270-329 mg/dl = 3 units; If 330-389 mg/dl = 4 units; If 390-449 mg/dl = 5 units; If Greater than 449 call physician; Use for Total Daily Dose of Insulin 28-36 units -Would recommend lab work (BMP) to check your kidney function in 3 to 4 days through your primary care physician's office. Please call their office upon discharge to obtain order for lab work. -Your metoprolol has been discontinued and has been changed to carvedilol as this will help more with blood pressure control. Is important that you do not take both of these together -Would advise you check your blood pressure at home and if the systolic blood pressure entheses top number) is consistently over 150 please contact your primary care physician -You will be sent home with a short prescription of pain medication, please discuss additional pain control with your primary care physician if needed -Your pain medication prescription will be printed and provided at discharge, all other new medication scripts will be sent to preferred pharmacy on file -You will need to follow-up with endocrinology (Dr. Key), orthopedics (Dr. Ferreira), and ophthalmology (a provider in the office of Dr. Chatterjee). Contact information to schedule these appointments as below -Projected return to work date 09/07/2023, please follow-up with your primary care physician as you may need less or more time depending on your progress -Please call your primary care provider's office upon discharge to schedule a hospital follow up within 1 week. -For any concerning signs or symptoms please call 911 or proceed to the nearest emergency department Discharge Orders/Prescriptions Prescriptions: New carvedilol 6.25 mg Tablet 6.25 mg PO BID 30 Days Qty: 60 0RF indomethacin 25 mg Capsule 50 mg PO TIDCM 5 Days Qty: 30 0RF insulin lispro [Humalog KwikPen Insulin] 100 unit/mL Insulin Pen See Protocol subcut ACHS Qty: 15 0RF Protocol: 1. Sliding Scale Insulin Low Dosing Condition: 150-224 mg/dl = 1 unit Condition: 225-299 mg/dl = 2 units Condition: 300-374 mg/dl = 3 units Condition: 375-449 mg/dl = 4 units Condition: Greater than 449 call physician Protocol Text: Suggested for: - Patients on Total Daily Insulin Dose of 15-27 units - Thin, elderly, renal patients LOW DOSING ALGORITHM oxycodone 5 mg Tablet 5 mg PO Q4H PRN PRN (Reason: Pain Score 4-10) 5 Days Qty: 30 0RF Continued guaifenesin [Mucinex] 600 mg tablet extended release 12hr 600 mg PO Q12H PRN (Reason: congestion) multivitamin Tablet 1 tab PO DAILY aspirin [Adult Low Dose Aspirin] 81 mg tablet,delayed release (DR/EC) 81 mg PO QDAY Qty: 60 3RF amlodipine 10 mg tablet 10 mg PO DAILY Qty: 60 3RF (DME) pen needle, diabetic [Pen Needle] 29 gauge x 1/2 needle See Rx Instructions .Route Qty: 100 0RF Rx Instructions: As directed clonidine HCl 0.1 mg tablet 0.1 mg PO TID atorvastatin [Lipitor] 40 mg tablet 40 mg PO DAILY Qty: 90 3RF Changed allopurinol 100 mg tablet 200 mg PO DAILY 30 Days Qty: 60 0RF insulin glargine [Lantus Solostar U-100 Insulin] 100 unit/mL (3 mL) insulin pen 20 unit subcut DAILY Qty: 15 0RF Discontinued metoprolol succinate [Toprol XL] 50 mg tablet extended release 24 hr 50 mg PO DAILY Qty: 60 3RF Referrals / Follow Up: Zachary Leal MD [Primary Care Provider] - Claus Ferreira MD [Med Staff - Active Staff] - Within 2 Weeks Claus Chatterjee MD [Med Staff - Active Staff] - In 1 Day Glen Key MD [Med Staff - Courtesy Staff] - Within 1 Month (Referral for Endocrinology) Disposition Disposition (needs filled in before D/C Order can be placed): Home, Self Care
--- NOTE | 2023-08-29 14:00 | DS.PCM_ITS ---
Providers Date of Admission: 08/25/23 Date of Discharge: 08/29/23 Primary Care Physician: Dr. Zachary Leal MD Consultations 08/25/23 06:47 Consult: Orthopedics Routine Consulting Provider: Claus Ferreira Reason for Consult: septic knee EMERGENT Consult: No Notified: Yes Date Notified: 08/24/23 Time Notified: 19:48 Method of Notification: ED Physician Initiated 08/26/23 09:18 Consult: Infectious Disease Routine Consulting Provider: Haim Gtz Reason for Consult: concern for knee SA, s/p washout, ortho req ID c/s EMERGENT Consult: No Notified: Yes Date Notified: 08/26/23 Time Notified: 09:34 Method of Notification: Text Reason For Visit: MASSIVE RIGHT KNEE EFFUSION WITH SEVERE PAIN WITH Diagnosis Discharge Diagnosis (1) Acute pain of right knee: Status: Acute Code(s): M25.561 - Pain in right knee (2) Effusion, right knee: Status: Acute Code(s): M25.461 - Effusion, right knee (3) Gout attack: Status: Acute Code(s): M10.9 - Gout, unspecified Plan # Right knee swelling and pain # Acute gout flare #HTN #Type 2 diabetes mellitus Medications at Discharge Home Medications guaifenesin 600 mg tablet, extended release 12 hr (Mucinex) 600 mg PO Q12H PRN congestion 05/06/23 multivitamin 1 tab PO DAILY supplement 05/06/23 amlodipine 10 mg tablet 10 mg PO DAILY blood pressure #60 tabs 05/13/23 aspirin 81 mg tablet,delayed release (Adult Low Dose Aspirin) 81 mg PO [facility] #60 tabs 05/13/23 atorvastatin 40 mg tablet (Lipitor) 40 mg PO DAILY high cholesterol #90 tabs 05/25/23 pen needle, diabetic 29 gauge x 1/2 (Pen Needle) #100 ea 07/17/23 clonidine HCl 0.1 mg tablet 0.1 mg PO TID 08/25/23 allopurinol 100 mg tablet 200 mg (2 x 100 mg) PO DAILY gout 30 days #60 tabs 08/29/23 carvedilol 6.25 mg tablet 6.25 mg PO BID 30 days #60 tabs 08/29/23 indomethacin 25 mg capsule 50 mg (2 x 25 mg) PO TIDCM 5 days #30 caps 08/29/23 insulin glargine 100 unit/mL (3 mL) subcutaneous pen (Lantus Solostar U-100 Insulin) 20 unit (0.2 mL) subcut DAILY #15 mL 08/29/23 insulin lispro 100 unit/mL subcutaneous pen (Humalog KwikPen (U-100) Insulin) See Protocol subcut ACHS #15 mL 08/29/23 oxycodone 5 mg tablet 5 mg PO Q4H PRN PRN Pain Score 4-10 5 days #30 tabs 08/29/23 Hospital Course Procedures - (Right knee washout and aspiration) Summary of Care Provided Minutes Spent on Discharge: 45 Hospital Course: 42-year-old male history of hypertension, diabetes, gout who presented to [facility] ED 08/29/2023 with right knee pain and swelling for several days. In the ER he had joint effusion aspirated with about 80 cc of cloudy fluid, white blood cell count was elevated at 16.6 K with 97% PMNs and negative Gram stain with no crystals. CT of right knee revealed large effusion and mild subcutaneous edema posterior laterally to the right knee with high index of suspicion for septic arthritis. Ortho consulted and patient was taken for washout of right knee and ID was consulted. There were no organisms that grew and cultures and some calcifications but no specific crystals noted on fluid of washout, patient was initially on antibiotics which were narrowed and then ultimately discontinued, broad lab workup obtained given the knee swelling and findings with negative cultures thus far unrevealing though multiple labs still pending. During hospitalization patient developed swelling of his big toe on his right foot consistent with his previous gout attacks, discussed with Ortho and it was felt that the toe was gout and it was possible the knee was also gout and the crystals just were not visualized, it was advised to treat with indomethacin and monitor clinically. Patient improved significantly with indomethacin and was felt that this was likely gout flare and ID agreeable to DC antibiotics given cultures negative. Patient did have some worsening vision in both eyes during his hospital stay, discussed with Optho on-call and it was reported that rapid changes in glucose even if its improved glucose can sometimes lead to these vision changes and given that it is bilateral and there are no other abnormalities or associated symptoms it is likely that this will improve and patient can follow-up in the office on Thursday or Thursday for further evaluation and management. Patient overall feeling much better on day of discharge with no new complaints and with improved mobility and pain. Discussed discharge instructions with patient at length, discharge instructions as follows: - You will be discharged with an additional 5 days of indomethacin that you will take 3 times daily for a gout flare (take with meals). It is possible that you may need a longer course, if symptoms do not continue to improve or still present at the end of your course please contact your primary care physician -Your chronic gout medication, allopurinol, will also be increased to 200 mg -Several autoimmune labs are still pending, your symptoms are most consistent with gout especially given your rapid improvement with indomethacin treatment however please follow-up with your primary care physician for these results as they may take a week or 2 to result -You are on 20 units of long-acting insulin daily and short acting insulin with meals. Your blood sugars have been fairly well-controlled in the morning so it is advised to take the 20 units of long-acting insulin daily and a prescription will be sent for sliding scale insulin for meals. Additional insulin supplies and scripts will need to be procured through your primary care physician's office -Sliding scale as follows: If 150-209 mg/dl = 1 unit; If 210-269 mg/dl = 2 units; If 270-329 mg/dl = 3 units; If 330-389 mg/dl = 4 units; If 390-449 mg/dl = 5 units; If Greater than 449 call physician; Use for Total Daily Dose of Insulin 28-36 units -Would recommend lab work (BMP) to check your kidney function in 3 to 4 days through your primary care physician's office. Please call their office upon discharge to obtain order for lab work. -Your metoprolol has been discontinued and has been changed to carvedilol as this will help more with blood pressure control. Is important that you do not take both of these together -Would advise you check your blood pressure at home and if the systolic blood pressure entheses top number) is consistently over 150 please contact your primary care physician -You will be sent home with a short prescription of pain medication, please discuss additional pain control with your primary care physician if needed -Your pain medication prescription will be printed and provided at discharge, all other new medication scripts will be sent to preferred pharmacy on file -You will need to follow-up with endocrinology (Dr. Key), orthopedics (Dr. Ferreira), and ophthalmology (a provider in the office of Dr. Chatterjee). Contact information to schedule these appointments as below -Projected return to work date 09/07/2023, please follow-up with your primary care physician as you may need less or more time depending on your progress -Please call your primary care provider's office upon discharge to schedule a hospital follow up within 1 week. -For any concerning signs or symptoms please call 911 or proceed to the nearest emergency department Physical Exam Narrative General: Alert, oriented, no apparent distress HEENT: Atraumatic, normocephalic Eyes: Anicteric, normal conjunctiva, extraocular movements grossly intact Neck: Supple Respiratory: Clear to auscultation bilaterally, normal respiratory effort Cardiovascular: Regular rate and rhythm GI: Soft, nontender, nondistended Extremities: Right knee with Steri-Strips appreciated on surgical site evaluated, left big toe swelling and pain improving Musculoskeletal: Moving all extremities Neuro: No overt focal neurological deficits Skin: No rashes appreciated Psych: Cooperative Weight / BMI Weight Weight: 112.536 kg Body Mass Index (BMI) 33.5 ABG / Lab / Microbiology Data 08/29/23 06:58 08/29/23 06:58 Laboratory: Laboratory Results - last 24 hr 08/28/23 16:19: POC Glucose 170 H 08/28/23 21:47: POC Glucose 165 H 08/29/23 06:28: POC Glucose 121 H 08/29/23 06:58: WBC 5.0, RBC 4.03 L, Hgb 11.1 L, Hct 34.9 L, MCV 86.6, MCH 27.5, MCHC 31.8 L, RDW Std Deviation 39.3, RDW Coeff of Pippa 12.5, Plt Count 227, MPV 9.5, Immature Gran % (Auto) 0.400, Neut % (Auto) 56.1, Lymph % (Auto) 25.3, Baker % (Auto) 11.8 H, Eos % (Auto) 5.8 H, Baso % (Auto) 0.6, Absolute Neuts (auto) 2.8, Absolute Lymphs (auto) 1.27, Nucleated RBC % 0, ESR 51 H, Sodium 140, Potassium 4.2, Chloride 110 H, Carbon Dioxide 26.0, Anion Gap 4 L, BUN 16, Creatinine 1.12, Estim Creat Clear Calc 113.56, Est GFR (MDRD) Af Amer 93, Est GFR (MDRD) Non-Af 77, BUN/Creatinine Ratio 14.3, Glucose 136 H, Calcium 8.9, Total Bilirubin 0.40, AST 18, ALT 25, Alkaline Phosphatase 90, C-React Prot Ext Range 59.60 H, Total Protein 6.2 L, Albumin 2.7 L, Globulin 3.5, A lbumin/Globulin Ratio 0.8 L 08/29/23 10:43: POC Glucose 230 H Microbiology: Microbiology 08/24/23 22:30 Fluid - Synovial (joint) Gram Stain - Final 08/24/23 22:30 Fluid - Synovial (joint) Body Fluid Culture - Final No growth in 5 days. 08/24/23 22:30 Fluid - Synovial (joint) Anaerobic Culture - Preliminary No growth in 48 hours. 08/27/23 12:37 Urine, Clean Catch Chlamydia trachomatis (PCR) - Final 08/27/23 12:37 Urine, Clean Catch Neisseria gonorrhoeae (PCR) - Final 08/25/23 Unknown Incision/Surgical Site Gram Stain - Final 08/25/23 Unknown Incision/Surgical Site Wound Culture - Final No growth aerobically. 08/25/23 Unknown Incision/Surgical Site Anaerobic Culture - Preliminary No growth in 48 hours. D/C Instructions Discharge Diet: Carb Control Diet Return to work on: 09/07/23 Meaningful Use Info Meaningful Use Meaningful Use Diagnoses (Choose all that apply): None applicable Ischemic Stroke Statin Dosing Therapy Reference: STATIN DOSE THERAPY REFERENCE: * Patients > 75 years receive moderate or high dose statin therapy. * Patients 75 years or YOUNGER should receive HIGH intensity statin dose unless contraindicated. You will be required to document reason for non-treatment if statin daily dose does not meet guidelines. HIGH DOSE STATIN THERAPY DAILY Atorvastatin > than or = to 40 mg Rosuvastatin > than or = to 20 mg Amlodipine + Atorvastatin > than or = to 2.5/40 mg Ezetimibe + Simvastatin 10/80 mg Simvastatin 80mg Discharge Plan Admission Admit Date/Time: 08/25/23 00:53 Primary Reason for Your Visit: Right knee pain Attending Provider: Nohelia Ricketts Primary Care Provider: Zachary Leal Consulting Providers: Claus Ferreira; Hay Gruber; Haim Gtz Instructions Patient Instructions: Treating Gout Attacks, Eating to Prevent Gout, ED Gout, ED Gout Diet Additional Instructions / Restrictions: DISCHARGE INSTRUCTIONS PLEASE READ *Please take this with you to your next doctors appointment* - You will be discharged with an additional 5 days of indomethacin that you will take 3 times daily for a gout flare (take with meals). It is possible that you may need a longer course, if symptoms do not continue to improve or still present at the end of your course please contact your primary care physician -Your chronic gout medication, allopurinol, will also be increased to 200 mg -Several autoimmune labs are still pending, your symptoms are most consistent with gout especially given your rapid improvement with indomethacin treatment however please follow-up with your primary care physician for these results as they may take a week or 2 to result -You are on 20 units of long-acting insulin daily and short acting insulin with meals. Your blood sugars have been fairly well-controlled in the morning so it is advised to take the 20 units of long-acting insulin daily and a prescription will be sent for sliding scale insulin for meals. Additional insulin supplies and scripts will need to be procured through your primary care physician's office -Sliding scale as follows: If 150-209 mg/dl = 1 unit; If 210-269 mg/dl = 2 units; If 270-329 mg/dl = 3 units; If 330-389 mg/dl = 4 units; If 390-449 mg/dl = 5 units; If Greater than 449 call physician; Use for Total Daily Dose of Insulin 28-36 units -Would recommend lab work (BMP) to check your kidney function in 3 to 4 days through your primary care physician's office. Please call their office upon discharge to obtain order for lab work. -Your metoprolol has been discontinued and has been changed to carvedilol as this will help more with blood pressure control. Is important that you do not take both of these together -Would advise you check your blood pressure at home and if the systolic blood pressure entheses top number) is consistently over 150 please contact your primary care physician -You will be sent home with a short prescription of pain medication, please discuss additional pain control with your primary care physician if needed -Your pain medication prescription will be printed and provided at discharge, all other new medication scripts will be sent to preferred pharmacy on file -You will need to follow-up with endocrinology (Dr. Key), orthopedics (Dr. Ferreira), and ophthalmology (a provider in the office of Dr. Chatterjee). Contact information to schedule these appointments as below -Projected return to work date 09/07/2023, please follow-up with your primary care physician as you may need less or more time depending on your progress -Please call your primary care provider's office upon discharge to schedule a hospital follow up within 1 week. -For any concerning signs or symptoms please call 911 or proceed to the nearest emergency department Discharge Orders/Prescriptions Prescriptions: New carvedilol 6.25 mg Tablet 6.25 mg PO BID 30 Days Qty: 60 0RF indomethacin 25 mg Capsule 50 mg PO TIDCM 5 Days Qty: 30 0RF insulin lispro [Humalog KwikPen Insulin] 100 unit/mL Insulin Pen See Protocol subcut ACHS Qty: 15 0RF Protocol: 1. Sliding Scale Insulin Low Dosing Condition: 150-224 mg/dl = 1 unit Condition: 225-299 mg/dl = 2 units Condition: 300-374 mg/dl = 3 units Condition: 375-449 mg/dl = 4 units Condition: Greater than 449 call physician Protocol Text: Suggested for: - Patients on Total Daily Insulin Dose of 15-27 units - Thin, elderly, renal patients LOW DOSING ALGORITHM oxycodone 5 mg Tablet 5 mg PO Q4H PRN PRN (Reason: Pain Score 4-10) 5 Days Qty: 30 0RF Continued guaifenesin [Mucinex] 600 mg tablet extended release 12hr 600 mg PO Q12H PRN (Reason: congestion) multivitamin Tablet 1 tab PO DAILY aspirin [Adult Low Dose Aspirin] 81 mg tablet,delayed release (DR/EC) 81 mg PO QDAY Qty: 60 3RF amlodipine 10 mg tablet 10 mg PO DAILY Qty: 60 3RF (DME) pen needle, diabetic [Pen Needle] 29 gauge x 1/2 needle See Rx Instructions .Route Qty: 100 0RF Rx Instructions: As directed clonidine HCl 0.1 mg tablet 0.1 mg PO TID atorvastatin [Lipitor] 40 mg tablet 40 mg PO DAILY Qty: 90 3RF Changed allopurinol 100 mg tablet 200 mg PO DAILY 30 Days Qty: 60 0RF insulin glargine [Lantus Solostar U-100 Insulin] 100 unit/mL (3 mL) insulin pen 20 unit subcut DAILY Qty: 15 0RF Discontinued metoprolol succinate [Toprol XL] 50 mg tablet extended release 24 hr 50 mg PO DAILY Qty: 60 3RF Referrals / Follow Up: Zachary Leal MD [Primary Care Provider] - Claus Ferreira MD [Med Staff - Active Staff] - Within 2 Weeks Claus Chatterjee MD [Med Staff - Active Staff] - In 1 Day Glen Key MD [Med Staff - Courtesy Staff] - Within 1 Month (Referral for Endocrinology) Disposition Disposition (needs filled in before D/C Order can be placed): Home, Self Care Charges/Coding Visit Charges Inpatient E&M: 83659 Disch Hosp >30min
[2023-08-29 14:50] VITALS: BP 153/96; PULSE 61; RESP 18; TEMP 36.8; O2SAT 97
[2023-08-31 15:08] LABS: Anti-Centromere B Ab <0.2 AI (0.0-0.9); Anti-Chromatin <0.2 AI (0.0-0.9); Anti-Jo <0.2 AI (0.0-0.9); Anti-Scleroderma-70 AB <0.2 AI (0.0-0.9); Anti-dsDNA Ab <1 IU/mL (0-9); RNP Ab <0.2 AI (0.0-0.9); SJOGREN'S Anti-SS-A test < 0.2 AI (0.0-0.9); SJOGREN'S Anti-SS-B test < 0.2 AI (0.0-0.9); Smith Ab <0.2 AI (0.0-0.9)
[2023-08-31 16:09] LABS: CCP IgG Antibodies 3 units (0-19); HEPATITIS B SURFACE AG Negative (Negative); Hep C Antibodies Non Reactive (Non Reactive); Hepatitis A IgM Antibody Negative (Negative); Hepatitis B Core AB IgM Negative (Negative); PARVOVIRUS B19 IGG 2.3 index (0.0-0.8); PARVOVIRUS B19 IGM 0.1 index (0.0-0.8)
== END 2023-08-29 14:59 | disposition home or self-care (01) | DRG 487 ==
LOC: ED 18:32 → MS3 08-25 00:58
PROVIDERS: Orthopaedic Surgery Sports Medicine; Admitting Provider Internal Medicine; Emergency Provider Emergency Medicine; PCP Family Medicine; Visit Provider Internal Medicine
PROC: 0SBC4ZZ Excision of Right Knee Joint, Percutaneous Endoscopic Approach (ICD-10-PCS; CPT 29870; principal; 2023-08-25 09:10)
DX: M00.9 Pyogenic arthritis, unspecified (principal); E11.65 Type 2 diabetes mellitus with hyperglycemia; Z79.4 Long term (current) use of insulin; I10 Essential (primary) hypertension; M10.9 Gout, unspecified; E78.5 Hyperlipidemia, unspecified; M17.10 Unilateral primary osteoarthritis, unspecified knee; M65.9 Synovitis and tenosynovitis, unspecified; M25.461 Effusion, right knee; Z79.82 Long term (current) use of aspirin
CPT/HCPCS: 36415; 73564; 73700; 80048; 80053; 80074; 80202; 81001; 82962; 83036; 83735; 84100; 84443; 84550; 85025; 85652; 86140; 86200; 86225; 86235; 86431; 86618; 86747; 87070; 87075; 87205; 87491; 87591; 89050; 89051; 89060; 97110; 97116; 97162; 97530; 99284; J7030; J7040; J7050; A4216; J0696; J2405

== ENCOUNTER → 2023-09-03 | Outpatient (CLI) | payer OTHER, SELFPAY | END | disposition home or self-care (01) | PROVIDERS: PCP Family Medicine; Referring Provider Family Medicine; Visit Provider Family Medicine | DX: I10 Essential (primary) hypertension (principal) | CPT/HCPCS: 36415 ==

== ENCOUNTER → 2023-09-16 | Outpatient (CLI) | payer OTHER, SELFPAY ==
--- NOTE | 2023-09-16 06:37 | CT_ITS ---
STUDY: CT BRAIN WITHOUT CONTRAST REASON FOR EXAM: Male, 42 years old. Vision loss x 3 days, unexplained lower extremity edema RADIATION DOSAGE (If Supplied By Facility): CTDIvol = ( 4.99 ) mGy, DLP = ( 812.98 ) mGycm TECHNIQUE: Transaxial CT imaging of the brain was performed without administration of intravenous contrast material. Individualized dose optimization techniques were used for this CT. COMPARISON: No relevant priors. FINDINGS: Normal soft tissue structures. Normal calvarium. Normal size ventricles and extra-axial spaces for the patient''s age. Normal white matter tracts of the cerebral hemispheres. Normal basal ganglia and thalami. Normal brainstem. Normal cerebellum. There is no intracranial hemorrhage. There are no findings of an acute ischemic infarction. Normal visualized paranasal sinuses. CT/Brain/Head without Contrast IMPRESSION: Normal unenhanced CT scan of the brain. Electronically Signed: Yanick Reveles MD at 14:36 EDT ,
== END | disposition home or self-care (01) ==
LOC: CT 06:36
PROVIDERS: PCP Family Medicine; Referring Provider Family Medicine; Visit Provider Family Medicine
DX: H54.7 Unspecified visual loss (principal)
CPT/HCPCS: 70450

== ENCOUNTER → 2023-10-05 | Outpatient (CLI) | payer OTHER, SELFPAY ==
[2023-10-05 18:38] LABS: Microalbumin,Random Urine 9.9 mg/L (NO RANGE EST.); Microalbumin:Creatinine Ratio 12.5 mg/g CRE (<30 mg/g CRE)
[2023-10-05 18:46] LABS: Vitamin D,25 Hydroxy 24.9 ng/mL
[2023-10-05 18:55] LABS: Albumin, Serum 4.1 g/dL (3.2-5.0); BUN 27 mg/dL (7-18); BUN/Creat Ratio 15.6 RATIO (10-20); Calcium,Total 9.7 mg/dL (8.5-10.1); Chloride 108 mmol/L (98-107); Creatinine, Serum 1.73 mg/dL (0.70-1.30); EST Glomerular Filtration Rate 47 mL/min (>60); Est Glom Filt Rate - Afr Amer 56 mL/min (>60); Glucose 208 mg/dL (74-106); Phosphorus 3.3 mg/dL (2.5-4.9); Potassium 3.9 mmol/L (3.5-5.1); Sodium Level 139 mmol/L (136-145)
== END | disposition home or self-care (01) ==
LOC: MTLAB 16:27
PROVIDERS: PCP Family Medicine; Referring Provider Internal Medicine Nephrology; Visit Provider Internal Medicine Nephrology
DX: N18.31 Chronic kidney disease, stage 3a (principal)
CPT/HCPCS: 36415; 80069; 82043; 82306; 82570

== ENCOUNTER → 2023-10-06 | Outpatient (CLI) | payer OTHER, SELFPAY ==
[2023-10-08 17:08] LABS: ANTINUCLEAR ANTIBODIES DIRECT Negative (Negative)
== END | disposition home or self-care (01) ==
LOC: POLAB3 14:38
PROVIDERS: PCP Family Medicine; Visit Provider Internal Medicine Nephrology
DX: N17.9 Acute kidney failure, unspecified (principal)
CPT/HCPCS: 36415; 86038

== ENCOUNTER → 2023-10-26 | Outpatient (CLI) | payer OTHER, SELFPAY ==
--- NOTE | 2023-10-26 16:15 | MRI_ITS ---
EXAM: MR RIGHT LOWER EXTREMITY WITHOUT INTRAVENOUS CONTRAST, KNEE CLINICAL INDICATION: KNEE SWELLING TECHNIQUE: Multiplanar and multisequence MR images of the right knee without intravenous contrast. COMPARISON: August 24, 2023 FINDINGS: ARTIFACTS: Susceptibility artifact at the superior aspect of Hoffa''s fat. BONES/JOINTS: Unremarkable. No fracture. No abnormal bone marrow signal. No synovial hypertrophy. No intra-articular body. EXTENSOR MECHANISM: Unremarkable. MEDIAL MENISCUS: Unremarkable. LATERAL MENISCUS: Unremarkable. MEDIAL CAPSULE/SUPPORTING STRUCTURES: Unremarkable. Intact. LATERAL CAPSULE/SUPPORTING STRUCTURES: Unremarkable. Lateral collateral ligamentous complex, inclusive of the popliteal tendon, are intact. ANTERIOR CRUCIATE LIGAMENT: Unremarkable. Intact. POSTERIOR CRUCIATE LIGAMENT: Unremarkable. Intact. MUSCLES: Unremarkable. CARTILAGE: Unremarkable. Intact. FLUID: Large suprapatellar joint effusion without significant synovitis or intra-articular ossific bodies. No Casillas''s cyst. OTHER SOFT TISSUES: Diffuse subcutaneous edema anteriorly with no organized fluid collections identified. Edema involving Hoffa''s fat. MRI/Lower Ext Joint Only (Routine) IMPRESSION: Large joint effusion without Casillas''s cyst. Electronically Signed: Finn Calvillo MD at 21:48 EDT ,
== END | disposition home or self-care (01) ==
LOC: MRI 15:38
PROVIDERS: PCP Family Medicine; Referring Provider Family Medicine; Visit Provider Family Medicine
DX: M25.461 Effusion, right knee (principal)
CPT/HCPCS: 73721

== ENCOUNTER 2023-11-04 17:30 | Outpatient (RCR) | payer OTHER, SELFPAY ==
--- NOTE | 2023-09-04 10:29 | HP.PTEVAL ---
Patient's Visit Information Visit Information Visit Information: JUSTINE RUANO is a 42 year old M referred to Physical Therapy by Dr. Nohelia Ricketts MD with a diagnosis of suspected septic arthritis R knee. Date of Evaluation: 09/03/23 Physical Therapist: Luiz Lopez DPT Visit Plan Frequency: 2x /Week Duration: 6 Weeks Plan: Start with progressive R knee ROM, HS stretching. Add in quad sets. May use vaso and ice for edema control. Add in strengthening once ROM has been restored. Subjective Subjective: Pt. is here today for his initial evaluation with diagnosis of suspected septic arthritis R knee. Pt. reports last week he woke up and his knee was very painful and double the size of the other. Pt. had a washout and was then thought to not have septic arthritis. Pt. reports feeling better, but is still having high amounts of pain. He reports as long has he keeps his knee partially bent he does okay. With any ROM his knee becomes very painful. Pt. reports that he has drastically improved, but still has a lot of pain. He has also been experiencing loss of vision over the past 3 weeks. Pt. 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 Pain R knee: Pain Intensity (Out of 10): 6 Pain Intensity Range: 2 and 8 Objective Objective: POSTURE: Pt. has marked off loading of RLE. Pt. is able to stand without AD, but off loads his RLE. PALPATION: Pt. is very tender throughout knee joint, but also along IT band and throughout quad. NEURO: Pt. has normal sensation in bLEs. Pt. has normal DTR of B achilles. ROM: R knee 0-5-75deg. Pt. reports pain as limiting factor with both ranges. No end feel felt. MMT: Pt. able to complete SLR with 10deg lag x10. pt. has a weak quad set as well. Balance/Special Test Scores Lower Extremity Functional Score: 17 Goals Goal 1:: LTG: Pt. to be I with HEP. Goal Time Frame: 4-6 Weeks Goal 2:: LTG: Pt. to be able ambulate with normal gait pattern without increase in R knee pain. Goal Time Frame: 4-6 Weeks Goal 3:: STG: Pt. to have increased R knee ROM to 0-0-120deg without increase in R knee pain. Goal Time Frame: 2-4 Weeks Goal 4:: LTG: Pt. to have equal strength throughout BLEs. Goal Time Frame: 4-6 Weeks Goal 5:: LTG: Pt. to resume all work and recreational activities without limitations. Goal Time Frame: 4-6 Weeks Rehabilitation Potential Physical Therapy Diagnosis: Pt. has signs and symptoms consistent with R knee hypomobility, high levels of pain and difficulty with walking. he would benefit from PT to address his ROM and increased edema allowing for increased tolerance with all work and daily activities. Rehabilitation Potential: Good Anticipated Interventions Patient/Client Instruction: Educate patient on: Condition, Plan of Care, Risk Factors and Benefits of Fitness Program For the Purpose of:: To improve decision making, To facilitate caregiver knowledge, To improve self management, To prevent re-injury, To improve ability to perform tasks related to life management and To improve tolerance to ADL's Therapeutic Exercise to Include: Strength training, Power training, Postural training, Passive ROM and Active ROM For the Purpose of:: To decrease pain, To decrease swelling/inflammation, To increase ROM, To improve nutrient delivery to tissue, To increase oxygenation perfusion, To improve muscle performance and motor function, To improve ability to perform ADL's, To increase tolerance to activity/condition/position, To improve performance and independence with ADL's, To decrease level of supervision to perform tasks, To improve ability of physical actions for home/community/work/leisure and To improve gait and locomotor functions Manual Therapy Techniques to Include: Mobilization, Passive ROM and Soft tissue mobilization For the Purpose of:: To decrease pain, To increase ROM and To improve nutrient delivery to tissue Cryotherapy (ice pack, ice massage): Yes Vasopneumatic device: Yes For the Purpose of:: To decrease pain, To decrease swelling/inflammation and To increase ROM Text: Thank you for the opportunity to evaluate your patient. For Medicare and Medicare HMO plans, please review the plan of care and approve it. It will need to be FAXED BACK to us at [phone] for Medicare purposes. For Medicare only, by signing this I certify the plan of care. Please let me know if there are questions or concerns regarding this plan of care. Physician Signature: Date:
--- NOTE | 2023-11-05 07:52 | HP.PTREVAL ---
Re-Evaluation Intro: Dr. 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 Please see the progress note below for an update on the physical therapy plan of care! Subjective Subjective: Pt. arrives today with reports of similar symptoms. He did have his PCP drain fluid from his knee. He reports he is still having a lot of swelling that extends down his leg into his ankle. He is wearing a compression garment at work, but reports by the end of the day there is a lot of pressure. Mornings are better, but the end of the day he reports that he is limping around and is hard to bend/extend his leg. Objective Objective/Function: ROM: AROM: 0-5-108deg Tightness as limiting factor PROM: 0-0-119deg. Pt. reports increased tightness with end range flexion and extension. It is just so tigtht. He continues to have a uniform swelling. ~2cm difference at mid patella and mid calf. There is some slight pitting edema, but not long lasting after pressure throughout calf. No major calf pain noted. Negative homans sign. MMT: Pt. has decent strength in his RLE, Knee ext: 28#, flexion 17#; hip: 5/5 throughout. LLE: knee: ext 38#, flexion 23#. hip 5/5 throughout. GAIT: Pt. continues to lack TKE during stance phase and has slightly reduced knee flexion during swing. He did have another MRI which did not show any structural issues. He has improved since initial evaluation with his ROm and strength. Patient continues to have conserns about swelling. Plan Plan Plan: At this point in time I am putting carolyne case on hold. He was going to follow back up with physician for further guidance. He has progressed with PT, but very slowly. Balance/Gait/Functional tests Balance/Special Test Scores Lower Extremity Functional Score: 17 Goals Goals Goal 1:: LTG: Pt. to be I with HEP. Goal Time Frame: 4-6 Weeks Goal Progress: Goal Met Goal 2:: LTG: Pt. to be able ambulate with normal gait pattern without increase in R knee pain. Goal Time Frame: 4-6 Weeks Goal Progress: Progressing Goal 3:: STG: Pt. to have increased R knee ROM to 0-0-120deg without increase in R knee pain. Goal Time Frame: 2-4 Weeks Goal Progress: Progressing Goal 4:: LTG: Pt. to have equal strength throughout BLEs. Goal Time Frame: 4-6 Weeks Goal Progress: Progressing Goal 5:: LTG: Pt. to resume all work and recreational activities without limitations. Goal Time Frame: 4-6 Weeks Goal Progress: Progressing Anticipated Interventions Anticipated Interventions Patient/Client Instruction: Educate patient on: Condition, Plan of Care, Risk Factors and Benefits of Fitness Program For the Purpose of:: To improve decision making, To facilitate caregiver knowledge, To improve self management, To prevent re-injury, To improve ability to perform tasks related to life management and To improve tolerance to ADL's Therapeutic Exercise to Include: Strength training, Power training, Postural training, Passive ROM and Active ROM For the Purpose of:: To decrease pain, To decrease swelling/inflammation, To increase ROM, To improve nutrient delivery to tissue, To increase oxygenation perfusion, To improve muscle performance and motor function, To improve ability to perform ADL's, To increase tolerance to activity/condition/position, To improve performance and independence with ADL's, To decrease level of supervision to perform tasks, To improve ability of physical actions for home/community/work/leisure and To improve gait and locomotor functions Manual Therapy Techniques to Include: Mobilization, Passive ROM and Soft tissue mobilization For the Purpose of:: To decrease pain, To increase ROM and To improve nutrient delivery to tissue Cryotherapy (ice pack, ice massage): Yes Vasopneumatic device: Yes For the Purpose of:: To decrease pain, To decrease swelling/inflammation and To increase ROM Re-Evaluation Ending Re-evaluation ending: Please do not hesitate to contact me at [phone] by phone or if you have questions or concerns regarding this new plan of care! Sincerely, Luiz Lopez DPT
== END 2023-11-04 19:00 | disposition home or self-care (01) ==
LOC: PT 17:30
PROVIDERS: PCP Family Medicine; Referring Provider Internal Medicine; Visit Provider Internal Medicine
DX: R26.89 Other abnormalities of gait and mobility (principal); R26.81 Unsteadiness on feet; M10.9 Gout, unspecified; M25.561 Pain in right knee; M25.461 Effusion, right knee
CPT/HCPCS: 97016; 97110; 97113; 97140; 97161; 97530